=== PATIENT | male | born 1945 | race Caucasian/White ===

== ENCOUNTER 2016-11-25 05:35 | Inpatient (IN) | payer MEDICARE, BC ==
[2016-11-25] MEDS ORDERED: Lactated Ringers 1,000 ML IV SCH (06:00)
[2016-11-25] MEDS ORDERED: ceFAZolin 2 GM in Premix Bag 1 BAG IV ONE (06:00)
[2016-11-25] MEDS ORDERED: Gentamicin 40 MG/ML 2 ML Vial ONE (06:39)
[2016-11-25] MEDS ORDERED: Midazolam 1 MG/ML 2 ML SDV ONE (07:24)
[2016-11-25] MEDS ORDERED: Propofol 200 MG/20 ML SDV ONE ×3 (07:24→09:45)
[2016-11-25] MEDS ORDERED: fentaNYL 100 MCG/2 ML SDV ONE (07:24)
[2016-11-25] MEDS ORDERED: Ropivacaine 49.25 ML, Ketorolac 30 MG, EPINEPHrine 0.5 MG, cloNIDine 80 MCG, Sodium Chl... INJECT SCH ×5 (07:45)
[2016-11-25] MEDS ORDERED: Tranexamic Acid 1,000 MG in Sodium Chloride 0.9% 50 ML IV SCH (08:00)
[2016-11-25] MEDS ORDERED: Lactated Ringers 1,000 ML ONE (09:49)
[2016-11-25] MEDS ORDERED: Docusate Sodium 100 MG Cap PO PRN (10:08)
[2016-11-25] MEDS ORDERED: Bisacodyl 5 MG Tab PO PRN (10:08)
[2016-11-25] MEDS ORDERED: Ketorolac 30 MG/ML SDV IVPUSH PRN (10:08)
[2016-11-25] MEDS ORDERED: Zolpidem 5 MG Tab PO PRN (10:08)
[2016-11-25] MEDS ORDERED: traMADol 50 MG Tab PO PRN ×2 (10:08→11:08)
[2016-11-25] MEDS ORDERED: Ondansetron 4 MG/2 ML SDV IVPUSH PRN (10:08)
[2016-11-25] MEDS ORDERED: Sennosides 8.6 MG Tab PO PRN (10:08)
[2016-11-25] MEDS ORDERED: diphenhydrAMINE 50 MG/ML SDV IVPUSH PRN (10:08)
[2016-11-25] MEDS ORDERED: Magnesium Hydroxide 400 MG/5 ML Susp 30 ML Cup PO PRN (10:08)
[2016-11-25] MEDS ORDERED: Aluminum Hydroxide/Magnesium Hydroxide/Simethicone Susp 30 ML Cup PO PRN (10:08)
[2016-11-25] MEDS ORDERED: Naloxone 0.4 MG/ML SDV IVPUSH PRN (10:08)
[2016-11-25] MEDS ORDERED: ceFAZolin 2 GM in Premix Bag 1 BAG IV SCH ×2 (11:00→12:00)
--- NOTE | 2016-11-25 11:51 | OR ---
DATE OF PROCEDURE: 11/25/2016 PREOPERATIVE DIAGNOSIS: Left knee primary osteoarthritis. POSTOPERATIVE DIAGNOSIS: Left knee primary osteoarthritis. PROCEDURE: Left knee total knee arthroplasty. RUG CLEANER HELPER: FRAN Ruvalcaba. ANESTHESIA: Conscious sedation plus spinal anesthesia. FLUID: Lactated Ringer solution. ESTIMATED BLOOD LOSS: 150 mL. COMPLICATIONS: None. SPECIMEN: None. DISCHARGE DISPOSITION: Stable to PACU. INSTRUMENTATION: Aquamantys was used during the procedure. Marah Persona size 10 left femur, size G tibia, a 35 mm patella, and 12 mm polyethylene posterior stabilized fixed bearing, tibial insert. INDICATIONS FOR THE PROCEDURE: The patient is well known to me. [place] He had failed nonoperative treatment including physical therapy, injections, and nonsteroidal anti-inflammatories. Preoperative imaging confirmed the above-mentioned diagnosis. Risks and benefits of the procedure were explained to the patient. Informed consent was obtained. DETAILS OF PROCEDURE: The patient was seen preoperatively by myself and the anesthesia staff in the preop holding area where the operative site was marked. He was brought to the operative suite by the anesthesia staff where a spinal was administered, he was also given some conscious sedation. The sterile Koenig catheter was placed. A well-padded tourniquet was placed onto his left thigh. The left lower extremity was then prepped and draped in a sterile manner. Time-out was called identifying the correct patient, the correct procedure, the correct site, and antibiotics had begun with an appropriate period of time. The left lower extremity was then exsanguinated. Tourniquet was raised to 300 mmHg for 50 minutes and taken down after cementing. A midline incision was made from the level of the tibial tubercle, 3 fingerbreadths proximal to the patella. Medial parapatellar arthrotomy was then made. Bleeding was controlled with Bovie electrocautery as well as the Aquamantys unit during the procedure. Infrapatellar fat pad was removed. A full synovectomy was performed. The patella was everted using a towel clip and then flexed. Two saw cuts were made to remove the posterior portion of the patella. It was sized at 35 mm. It was then drilled and then a patellar trial was then placed. I then flexed the knee up again and reamed the distal femur, retirement between the notch and the anterior cortex. I then inserted my intramedullary guide at 5 degrees valgus, 10 mm distal cut. I pinned this guide in place. I then made my distal femoral cut. I then removed as much of the medial and lateral meniscus as well as the anterior and posterior cruciate ligament as I could. I then inserted my posterior condylar guide in high flexion and then measured a 10 and drilled for my chamfer block. I then removed the guide and placed my chamfer block. I then protected the medial and lateral collateral ligaments with sharp Homans and then made my anterior posterior chamfer cuts. I then removed any extra bone using an osteotome as well as the soft tissue attachments with Bovie electrocautery. We then anteriorized the tibia with a blunt Hohmann and then protected the medial collateral ligament with a zero retractor and lateral collateral ligament with a sharp Hohmann. I then used an extramedullary guide on the proximal tibia to major in alignment with the tibial tubercle and the 2nd metatarsal and then drilled holes for my guide and then placed the guide after I was confident this was enough. We were in good alignment. We then used a saw to remove the proximal tibia. I did end up making a 2nd cut after trialing and removed another 4 mm. After this had been performed, I removed any soft tissue attachments with the Aquamantys unit. I then used an interlaminar municipal engineer. There were no major posterior osteophytes. I did not need to remove any of those, but I did remove a lot of posterior redundant capsule. I also used the Aquamantys unit on the posterior capsule, especially laterally to prevent any extra bleeders later. I then placed my base plate on the tibia and then reamed and tamped the proximal tibia. I then inserted my femoral trial and drilled the lugs as well as made the box cut. We then inserted a 10 mm polyethylene insert. This provided excellent stability in flexion, mid flexion, and full extension with excellent range of motion. We then removed all of our components, copiously irrigated with saline, and then dried our bone with a dry lap. I then, using a pressurized technique, placed my cement in the tibia and then placed the tibial component as well as remainder of the components and then held the knee out in full extension with a tibial polyethylene trial in place. I then allowed this to harden. The tourniquet was let down. He did have a fair amount of small bleeders, and we took our time to use the Bovie electrocautery unit and the Aquamantys unit to control any bleeders. Because of this, we did end up placing a drain, which will be taken out this afternoon. I then copiously irrigated with saline, removed any extra cement and then trialed with a 12 tibial insert, which provided excellent stability. I then copiously irrigated with saline again, inserted my 12 polyethylene tibial insert and locked it in place and then made sure there were no soft tissue entrapment between the head and the base plate. We then found this to be very stable, irrigated again with saline and then closed our parapatellar arthrotomy with two #5 Ethibond sutures as well as 0 Vicryl interrupted [id number] in a watertight manner followed by 2-0 subcutaneous sutures, followed by 2-0 Monocryl zip line and sterile dressing. The patient was then transferred to the PACU in stable condition. Robin Flores DO /[id number]
[2016-11-25] MEDS: Ketorolac 30 MG/ML SDV IVPUSH PRN (12:38)
[2016-11-25] MEDS: Acetaminophen/oxyCODONE 325-5 MG Tab PO PRN ×2 (12:39→16:49)
--- NOTE | 2016-11-25 12:41 | CR ---
Left knee The patient is status post knee arthroplasty. The prosthetic components are well aligned and seated. There is a drainage catheter within the joint. Impression: Left knee arthroplasty without evidence for complication.
[2016-11-25] MEDS: ceFAZolin 2 GM in Sodium Chloride 0.9% 50 ML IV SCH ×2 (14:46→21:17)
[2016-11-25] MEDS: Morphine 2 MG/ML Syringe IVPUSH PRN ×2 (15:02→19:46)
--- NOTE | 2016-11-25 15:16 | PCM.PN ---
- General Info Date of Service: 11/25/16 Functional Status: Reports: pain controlled, urinating - Review of Systems Pulmonary: Denies: shortness of breath Cardiovascular: Denies: Chest Pain Musculoskeletal: Reports: joint pain (left knee) Systems Review Comment:: No acute events since surgery. Pain in the knee is starting to build up but is still tolerable at this time. Pain is achy and moderate in nature. No numbness or tingling below the knee. Able to wiggle his toes. No complaints of chest pain or shortness of breath. - Patient Data Vitals - most recent: Last Vital Signs Temp 36.1 C 11/25/16 14:00 Pulse 64 11/25/16 14:00 Resp 16 11/25/16 14:00 BP 103/65 11/25/16 14:00 Pulse Ox 90 L 11/25/16 14:00 Weight - most recent: 103.873 kg I&O - last 24 hours: Intake & Output 11/25/16 11/25/16 11/25/16 06:59 14:59 22:59 Intake Total 100 Output Total 550 Balance -450 Lab Results last 24 hrs: Laboratory Results - last 24 hr 11/25/16 Range/Units 06:00 Blood Type A POSITIVE Gel Antibody Screen Negative Med Orders - Current: Current Medications Al Hydroxide/Mg Hydroxide (Mag-Al Plus) 30 ml PO Q4H PRN PRN Reason: Constipation Amlodipine Besylate (Norvasc) 2.5 mg PO DAILY [facility] Aspirin (Ecotrin) 325 mg PO BID [facility] Aspirin (Halfprin) 81 mg PO DAILY [facility] Bisacodyl (Dulcolax) 10 mg PO DAILY PRN PRN Reason: Constipation Diazepam (Valium) 5 mg IVPUSH Q6H PRN PRN Reason: Spasms Last Admin: 11/25/16 13:45 Dose: 5 mg Diphenhydramine HCl (Benadryl) 25 mg IVPUSH Q4H PRN PRN Reason: Itching Docusate Sodium (Colace) 100 mg PO BID PRN PRN Reason: Constipation Lactated Ringer's (Ringers, Lactated) 1,000 mls @ 100 mls/hr IV ASDIRECTED [facility] Last Admin: 11/25/16 06:21 Dose: 100 mls/hr Cefazolin Sodium 2 gm/ Sodium (Chloride) 50 mls @ 100 mls/hr IV Q8H [facility] Stop: 11/26/16 06:29 Last Admin: 11/25/16 14:46 Dose: 100 mls/hr Ketorolac Tromethamine (Toradol) 30 mg IVPUSH Q8H PRN PRN Reason: Pain Stop: 11/30/16 10:12 Last Admin: 11/25/16 12:38 Dose: 30 mg Magnesium Hydroxide (Milk Of Magnesia) 30 ml PO BID PRN PRN Reason: Constipation Metoprolol Tartrate (Lopressor) 25 mg PO Q12HR [facility] Morphine Sulfate (Morphine) 2 mg IVPUSH Q2H PRN PRN Reason: Pain Last Admin: 11/25/16 15:02 Dose: 2 mg Ondansetron HCl (Zofran) 8 mg IVPUSH Q4H PRN PRN Reason: Nausea/Vomiting Oxycodone/Acetaminophen (Percocet 325-5 Mg) 2 tab PO Q4H PRN PRN Reason: Pain Last Admin: 11/25/16 12:39 Dose: 2 tab Rosuvastatin Calcium (Crestor) 5 mg PO MOWEFR [facility] Senna (Senna) 8.6 mg PO BID PRN PRN Reason: Constipation Sodium Chloride (Saline Flush) 10 ml FLUSH DAILY [facility] Tramadol HCl (Ultram) 100 mg PO Q6H PRN PRN Reason: Pain Zolpidem Tartrate (Ambien) 5 mg PO BEDTIME PRN PRN Reason: Sleep Discontinued Medications Aspirin (Ecotrin) 325 mg PO BID [facility] Ropivacaine 49.25 ml/Ketorolac Tromethamine 30 mg/Epinephrine HCl 0.5 mg/ Clonidine HCl 80 mcg/ Sodium Chloride 48.45 ml 0 ml INJECT ASDIRECTED [facility] Stop: 11/25/16 10:00 Last Admin: 11/25/16 09:09 Dose: 100 syringe Fentanyl (Sublimaze) Confirm Administered Dose 100 mcg .ROUTE .STK-MED ONE Stop: 11/25/16 07:25 Gentamicin Sulfate (Gentamicin) Confirm Administered Dose 240 mg .ROUTE .STK- MED ONE Stop: 11/25/16 06:40 Last Admin: 11/25/16 08:31 Dose: 240 mg Cefazolin Sodium/Dextrose 2 gm (/ Premix) 50 mls @ 100 mls/hr IV ONETIME ONE Stop: 11/25/16 06:29 Last Admin: 11/25/16 07:26 Dose: 100 mls/hr Lactated Ringer's (Ringers, Lactated) Confirm Administered Dose 1,000 mls @ as directed .ROUTE .STK-MED ONE Stop: 11/25/16 09:50 Cefazolin Sodium/Dextrose 2 gm (/ Premix) 50 mls @ 100 mls/hr IV Q8H [facility] Stop: 11/26/16 03:29 Ketorolac Tromethamine (Toradol) 30 mg IVPUSH Q8H PRN PRN Reason: Pain Stop: 11/30/16 10:12 Midazolam HCl (Versed 1 Mg/Ml) Confirm Administered Dose 2 mg .ROUTE .STK-MED ONE Stop: 11/25/16 07:25 Naloxone HCl (Narcan) 0.1 mg IVPUSH ASDIRECTED PRN PRN Reason: Oversedation Stop: 11/25/16 10:09 Propofol (Diprivan 20 Ml) Confirm Administered Dose 200 mg .ROUTE .STK-MED ONE Stop: 11/25/16 07:25 Propofol (Diprivan 20 Ml) Confirm Administered Dose 200 mg .ROUTE .STK-MED ONE Stop: 11/25/16 08:04 Propofol (Diprivan 20 Ml) Confirm Administered Dose 200 mg .ROUTE .STK-MED ONE Stop: 11/25/16 09:46 Tramadol HCl (Ultram) 100 mg PO Q6H PRN PRN Reason: Pain - Exam Quality Assessment: No: supplemental oxygen General: alert, oriented, cooperative, no acute distress Neck: supple Lungs: Clear to auscultation, Normal respiratory effort Cardiovascular: Regular Rate, Regular Rhythm, No Murmurs Abdomen: soft, no distension Extremities: no edema, other (left knee wrapped with HARI. Dressings underneath dry and intact. Able to wiggle all of his toes and move feet ) Skin: warm, dry Neurological: other (distal CMS intact left foot) Psy/Mental Status: alert, normal affect - Problem List & Annotations (1) Primary osteoarthritis of left knee SNOMED Code(s): 876194265, 005077944 Code(s): M17.12 - UNILATERAL PRIMARY OSTEOARTHRITIS, LEFT KNEE Status: Chronic Current Visit: No (2) CAD (coronary artery disease) SNOMED Code(s): 92498980 Code(s): I25.10 - ATHSCL HEART DISEASE OF [place] CORONARY ARTERY W/O ANG PCTRS Status: Chronic Current Visit: Yes Qualifiers: Coronary Disease-Associated Artery/Lesion type: [place] artery [place] vs. transplanted heart: [place] heart Associated angina: without angina Qualified Code(s): I25.10 - Atherosclerotic heart disease of [place] coronary artery without angina pectoris - Problem List Review Problem List Initiated/Reviewed/Updated: Yes - My Orders Last 24 Hours: My Active Orders 11/25/16 21:00 Metoprolol Tartrate [Lopressor] 25 mg PO Q12HR 11/26/16 09:00 Aspirin [Halfprin] 81 mg PO DAILY amLODIPine [Norvasc] 2.5 mg PO DAILY 11/26/16 21:00 Rosuvastatin [Crestor] 5 mg PO MOWEFR - Plan Plan:: Assessment and plan - Primary osteoarthritis of the left knee - now status post total knee arthroplasty and moderate pain but otherwise doing well. Moderate drainage following surgery and this is now clamped. Hemodynamically stable. -Postop cares per orthopedic service Coronary artery disease, status post coronary artery bypass - no active symptoms and has been doing well clinically prior to hospital stay. Hemodynamically stable. -Continue medical management Steven Orozco M.D.
[2016-11-25] MEDS ORDERED: Acetaminophen 325 MG Tab PO PRN (15:46)
[2016-11-25] MEDS ORDERED: Diazepam 5 MG Tab PO PRN (15:47)
[2016-11-25] MEDS ORDERED: Lactated Ringers 500 ML IV SCH (18:45)
[2016-11-25] MEDS: Metoprolol Tartrate 25 MG Tab PO SCH (20:45)
[2016-11-25] MEDS ORDERED: Aspirin 325 MG Tab.EC PO SCH (21:00)
[2016-11-26] MEDS ORDERED: Sodium Chloride 0.9% 500 ML IV ONE (00:58)
[2016-11-26] MEDS ORDERED: Sodium Chloride 0.9% 1,000 ML IV SCH (02:00)
[2016-11-26] MEDS: Morphine 2 MG/ML Syringe IVPUSH PRN (04:30)
[2016-11-26] MEDS: ceFAZolin 2 GM in Sodium Chloride 0.9% 50 ML IV SCH (05:35)
[2016-11-26] MEDS: Acetaminophen/oxyCODONE 325-5 MG Tab PO PRN ×2 (05:45→11:29)
--- NOTE | 2016-11-26 06:30 | PCM.SN ---
- Free Text/Narrative Note: time 00:58 call from Nursing Staff concerns of decrease urine output, urine output 28ml/hr patient feeling urge to go to the bathroom. fell getting up to go to the bathroom. no injuries badder scan less then 50ml in bladder a; urine output decreased, fall without injury p; give IV Normal Saline 500ml bolus, then IV fluids at 125 ml/hr. continue close monitoring.
[2016-11-26] MEDS: amLODIPine 2.5 MG Tab PO SCH (08:05)
[2016-11-26] MEDS: Metoprolol Tartrate 25 MG Tab PO SCH ×2 (08:05→21:17)
[2016-11-26] MEDS: Sodium Chloride 0.9% 10 ML Syringe FLUSH SCH (08:07)
[2016-11-26] MEDS: Aspirin 325 MG Tab.EC PO SCH ×2 (09:02→21:17)
[2016-11-26] MEDS: Aspirin 81 MG Tab.EC PO SCH (09:02)
--- NOTE | 2016-11-26 09:31 | PCM.PN ---
- General Info Date of Service: 11/26/16 Admission Dx/Problem (Free Text): German is a 71-year-old pleasant male who has status post left knee total replacement on 11/25/2016. I received a call last evening the patient had fallen onto his knee when he was transferred to the bathroom. Nurse had noted an old obvious deformities. She states that all other examination was negative. I was also noted that he had low urine output. We had given him a fluid bolus and inform them to watch CMS over the night. Patient is doing well at this time. pain is controlled with oral pain medication. He has had his drain clamped with minimal drainage on his dressing. Patient is working with physical therapy and is doing well Functional Status: Reports: pain controlled, tolerating diet, ambulating, urinating - Review of Systems General: Reports: No Symptoms - Patient Data Vitals - most recent: Last Vital Signs Temp 37 C 11/26/16 07:35 Pulse 88 11/26/16 08:05 Resp 16 11/26/16 07:35 BP 124/91 H 11/26/16 08:05 Pulse Ox 94 L 11/26/16 07:35 Weight - most recent: 229 lb I&O - last 24 hours: Intake & Output 11/25/16 11/26/16 11/26/16 22:59 06:59 14:59 Intake Total 1180 1647 400 Output Total 160 625 Balance 1020 1022 400 Lab Results last 24 hrs: Laboratory Results - last 24 hr 11/26/16 11/26/16 Range/Units 05:46 05:46 WBC 13.1 H (4.5-11.0) K/uL RBC 4.15 L (4.30-5.90) M/uL Hgb 12.6 D (12.0-15.0) g/dL Hct 37.6 L (40.0-54.0) % MCV 91 (80-98) fL MCH 30 (27-31) pg MCHC 34 (32-36) % Plt Count 295 (150-400) K/uL Neut % (Auto) 74 H (36-66) % Lymph % (Auto) 11 L (24-44) % [place] % (Auto) 14 H (2-6) % Eos % (Auto) 1 L (2-4) % Baso % (Auto) 0 (0-1) % Sodium 137 L (140-148) mmol/L Potassium 4.2 (3.6-5.2) mmol/L Chloride 104 (100-108) mmol/L Carbon Dioxide 24 (21-32) mmol/L Anion Gap 13.2 (5.0-14.0) mmol/L BUN 19 H (7-18) mg/dL Creatinine 1.3 (0.8-1.3) mg/dL Est Cr Clr Drug Dosing 53.87 mL/min Estimated GFR (MDRD) 54 L (>60) Glucose 116 H (74-106) mg/dL Calcium 8.2 L (8.5-10.1) mg/dL Total Bilirubin 0.7 (0.2-1.0) mg/dL AST 18 (15-37) U/L ALT 22 (12-78) U/L Alkaline Phosphatase 92 (46-116) U/L Total Protein 6.1 L (6.4-8.2) g/dL Albumin 3.1 L (3.4-5.0) g/dL Globulin 3.0 (2.3-3.5) g/dL Albumin/Globulin Ratio 1.0 L (1.2-2.2) Med Orders - Current: Current Medications Acetaminophen (Tylenol) 650 mg PO Q4H PRN PRN Reason: Pain/Fever Al Hydroxide/Mg Hydroxide (Mag-Al Plus) 30 ml PO Q4H PRN PRN Reason: Constipation Amlodipine Besylate (Norvasc) 2.5 mg PO DAILY [facility] Last Admin: 11/26/16 08:05 Dose: 2.5 mg Aspirin (Ecotrin) 325 mg PO BID [facility] Last Admin: 11/26/16 09:02 Dose: 325 mg Aspirin (Halfprin) 81 mg PO DAILY [facility] Last Admin: 11/26/16 09:02 Dose: 81 mg Bisacodyl (Dulcolax) 10 mg PO DAILY PRN PRN Reason: Constipation Diazepam (Valium) 5 mg IVPUSH Q6H PRN PRN Reason: Spasms Last Admin: 11/25/16 13:45 Dose: 5 mg Diazepam (Valium.) 5 mg PO QID PRN PRN Reason: Spasms Last Admin: 11/25/16 21:17 Dose: 5 mg Diphenhydramine HCl (Benadryl) 25 mg IVPUSH Q4H PRN PRN Reason: Itching Docusate Sodium (Colace) 100 mg PO BID PRN PRN Reason: Constipation Lactated Ringer's (Ringers, Lactated) 1,000 mls @ 100 mls/hr IV ASDIRECTED [facility] Last Admin: 11/25/16 06:21 Dose: 100 mls/hr Ketorolac Tromethamine (Toradol) 30 mg IVPUSH Q8H PRN PRN Reason: Pain Stop: 11/30/16 10:12 Last Admin: 11/25/16 12:38 Dose: 30 mg Magnesium Hydroxide (Milk Of Magnesia) 30 ml PO BID PRN PRN Reason: Constipation Metoprolol Tartrate (Lopressor) 25 mg PO Q12H [facility] Last Admin: 11/26/16 08:05 Dose: 25 mg Morphine Sulfate (Morphine) 2 mg IVPUSH Q2H PRN PRN Reason: Pain Last Admin: 11/26/16 04:30 Dose: 2 mg Ondansetron HCl (Zofran) 8 mg IVPUSH Q4H PRN PRN Reason: Nausea/Vomiting Oxycodone/Acetaminophen (Percocet 325-5 Mg) 2 tab PO Q4H PRN PRN Reason: Pain Last Admin: 11/26/16 05:45 Dose: 2 tab Rosuvastatin Calcium (Crestor) 5 mg PO [id number] [facility] Senna (Senna) 8.6 mg PO BID PRN PRN Reason: Constipation Sodium Chloride (Saline Flush) 10 ml FLUSH DAILY [facility] Last Admin: 11/26/16 08:07 Dose: Not Given Tramadol HCl (Ultram) 100 mg PO Q6H PRN PRN Reason: Pain Last Admin: 11/26/16 08:03 Dose: 100 mg Zolpidem Tartrate (Ambien) 5 mg PO BEDTIME PRN PRN Reason: Sleep Discontinued Medications Aspirin (Ecotrin) 325 mg PO BID [facility] Ropivacaine 49.25 ml/Ketorolac Tromethamine 30 mg/Epinephrine HCl 0.5 mg/ Clonidine HCl 80 mcg/ Sodium Chloride 48.45 ml 0 ml INJECT ASDIRECTED [facility] Stop: 11/25/16 10:00 Last Admin: 11/25/16 09:09 Dose: 100 syringe Fentanyl (Sublimaze) Confirm Administered Dose 100 mcg .ROUTE .STK-MED ONE Stop: 11/25/16 07:25 Gentamicin Sulfate (Gentamicin) Confirm Administered Dose 240 mg .ROUTE .STK- MED ONE Stop: 11/25/16 06:40 Last Admin: 11/25/16 08:31 Dose: 240 mg Cefazolin Sodium/Dextrose 2 gm (/ Premix) 50 mls @ 100 mls/hr IV ONETIME ONE Stop: 11/25/16 06:29 Last Admin: 11/25/16 07:26 Dose: 100 mls/hr Lactated Ringer's (Ringers, Lactated) Confirm Administered Dose 1,000 mls @ as directed .ROUTE .STK-MED ONE Stop: 11/25/16 09:50 Cefazolin Sodium/Dextrose 2 gm (/ Premix) 50 mls @ 100 mls/hr IV Q8H [facility] Stop: 11/26/16 03:29 Last Admin: 11/25/16 17:45 Dose: Not Given Cefazolin Sodium 2 gm/ Sodium (Chloride) 50 mls @ 100 mls/hr IV Q8H [facility] Stop: 11/26/16 06:29 Last Admin: 11/26/16 05:35 Dose: 100 mls/hr Lactated Ringer's (Ringers, Lactated) 500 mls @ 100 mls/hr IV ASDIRECTED [facility] Stop: 11/25/16 23:45 Last Admin: 11/25/16 20:46 Dose: 100 mls/hr Sodium Chloride (Normal Saline) 500 mls @ 999 mls/hr IV .BOLUS ONE Stop: 11/26/16 01:28 Last Admin: 11/26/16 01:15 Dose: 999 mls/hr Sodium Chloride (Normal Saline) 1,000 mls @ 125 mls/hr IV ASDIRECTED [facility] Last Admin: 11/26/16 07:20 Dose: 125 mls/hr Ketorolac Tromethamine (Toradol) 30 mg IVPUSH Q8H PRN PRN Reason: Pain Stop: 11/30/16 10:12 Midazolam HCl (Versed 1 Mg/Ml) Confirm Administered Dose 2 mg .ROUTE .STK-MED ONE Stop: 11/25/16 07:25 Naloxone HCl (Narcan) 0.1 mg IVPUSH ASDIRECTED PRN PRN Reason: Oversedation Stop: 11/25/16 10:09 Propofol (Diprivan 20 Ml) Confirm Administered Dose 200 mg .ROUTE .STK-MED ONE Stop: 11/25/16 07:25 Propofol (Diprivan 20 Ml) Confirm Administered Dose 200 mg .ROUTE .STK-MED ONE Stop: 11/25/16 08:04 Propofol (Diprivan 20 Ml) Confirm Administered Dose 200 mg .ROUTE .STK-MED ONE Stop: 11/25/16 09:46 Tramadol HCl (Ultram) 100 mg PO Q6H PRN PRN Reason: Pain - Exam General: alert, oriented Extremities: no edema, normal pulses, no tenderness/swelling Skin: warm, dry, intact Wound/Incisions: healing well, dressing dry and intact (CANDELARIA drain was removed. ) , drainage (minimal) Neurological: no new focal deficit, normal gait Psy/Mental Status: alert, normal affect, normal mood - Problem List & Annotations (1) Status post total left knee replacement SNOMED Code(s): 3174344946339 Code(s): Z96.652 - PRESENCE OF LEFT ARTIFICIAL KNEE JOINT Status: Acute Current Visit: Yes - Problem List Review Problem List Initiated/Reviewed/Updated: Yes - My Orders Last 24 Hours: My Active Orders 11/25/16 10:08 Acetaminophen/oxyCODONE [Percocet 325-5 MG] 2 tab PO Q4H PRN Alum Hydrox/Mag Hydrox/Simeth [Mag-Al Plus] 30 ml PO Q4H PRN Bisacodyl [Dulcolax] 10 mg PO DAILY PRN Diazepam [Valium] 5 mg IVPUSH Q6H PRN Docusate Sodium [Colace] 100 mg PO BID PRN Magnesium Hydroxide [Milk of Magnesia] 30 ml PO BID PRN Morphine 2 mg IVPUSH Q2H PRN Ondansetron [Zofran] 8 mg IVPUSH Q4H PRN Sennosides [Senna] 8.6 mg PO BID PRN Zolpidem [Ambien] 5 mg PO BEDTIME PRN diphenhydrAMINE [Benadryl] 25 mg IVPUSH Q4H PRN Resuscitation Status Routine 11/25/16 10:12 Patient Status [ADT] Routine Ambulate [RC] QID Intake and Output [RC] QSHIFT May Shower [RC] ASDIRECTED Neurovascular Check [RC] Q4HR Notify Provider Consults [RC] ASDIRECTED Pulse Oximetry [RC] CONTINUOUS RT Incentive Spirometry [RC] Q2HWA Up to Chair [RC] QID Urinary Catheter Removal [RC] Per Unit Routine Vital Signs [RC] PER UNIT ROUTINE Wound Care [RC] Q12H Consult to Physician [CONS] Routine OT Evaluation and Treatment [CONS] Routine PT Evaluation and Treatment [CONS] Routine Sequential Compression Device [OM.PC] Per Unit Routine 11/25/16 10:15 Convert IV to Saline Lock [OM.PC] PER UNIT ROUTINE Ice Therapy [OM.PC] PER UNIT ROUTINE 11/25/16 11:08 Ketorolac [Toradol] 30 mg IVPUSH Q8H PRN traMADol [Ultram] 100 mg PO Q6H PRN 11/25/16 Lunch Advance Diet Instructions [DIET] 11/26/16 00:49 Consult to Physician [CONS] Routine 11/26/16 00:50 Notify Provider Consults [RC] ASDIRECTED 11/26/16 01:00 Communication Order [RC] ROUTINE 11/26/16 08:58 Knee 1V or 2V Rt [CR] Routine 11/26/16 09:00 Aspirin [Ecotrin] 325 mg PO BID Sodium Chloride 0.9% [Saline Flush] 10 ml FLUSH DAILY Drain Removal [OM.PC] Routine 11/27/16 05:15 CBC WITH AUTO DIFF [HEME] DAILY COMPREHENSIVE METABOLIC PN,CMP [CHEM] DAILY 11/28/16 05:15 CBC WITH AUTO DIFF [HEME] DAILY COMPREHENSIVE METABOLIC PN,CMP [CHEM] DAILY 11/29/16 05:15 CBC WITH AUTO DIFF [HEME] DAILY COMPREHENSIVE METABOLIC PN,CMP [CHEM] DAILY - Plan Plan:: Assessment and plan - Primary osteoarthritis of the left knee - patient is status post left total knee arthroplasty. He is doing well. He is tolerating oral pain medication without difficulties. He'll continue with PT/OT today. We will do an x-ray of his left knee to make sure he did not damage anything when he fell. I did DC his CANDELARIA drain today I also DC'd his Koenig and saline lock him. I want him to at least receive PT 3 times a day. I want him to ambulate once a day and plan to be discharged tomorrow. Patient and are in this plan. I did give him his discharge medications included Percocet and aspirin for his to fill today. I also ordered him to have physical therapy on day after discharge. Order was placed.
--- NOTE | 2016-11-26 09:32 | CR ---
Left knee Comparison: Previous day. There has been interval removal of the drainage catheter. The femoral and tibial prosthetic componen ts are well aligned and seated. There is no significant joint effusion. Impression: 1. Status post knee arthroplasty without evidence for consultation.
--- NOTE | 2016-11-26 14:55 | PCM.PN ---
- General Info Date of Service: 11/26/16 Functional Status: Reports: pain controlled, ambulating - Review of Systems Pulmonary: Denies: shortness of breath Cardiovascular: Denies: Chest Pain Systems Review Comment:: Patient had a fall last night where he stumbled and fell forward. No obvious injuries. Repeat x-rays this morning did not show any fracture or hardware damage in the left knee. Low urine output last night that responded to fluid boluses. Heart rate and blood pressure have been acceptable. - Patient Data Vitals - most recent: Last Vital Signs Temp 36.4 C 11/26/16 11:06 Pulse 80 11/26/16 11:06 Resp 20 11/26/16 11:06 BP 141/81 H 11/26/16 11:06 Pulse Ox 94 L 11/26/16 11:06 Weight - most recent: 103.873 kg I&O - last 24 hours: Intake & Output 11/25/16 11/26/16 11/26/16 22:59 06:59 14:59 Intake Total 1180 1647 400 Output Total 160 625 50 Balance 1020 1022 350 Lab Results last 24 hrs: Laboratory Results - last 24 hr 11/26/16 11/26/16 Range/Units 05:46 05:46 WBC 13.1 H (4.5-11.0) K/uL RBC 4.15 L (4.30-5.90) M/uL Hgb 12.6 D (12.0-15.0) g/dL Hct 37.6 L (40.0-54.0) % MCV 91 (80-98) fL MCH 30 (27-31) pg MCHC 34 (32-36) % Plt Count 295 (150-400) K/uL Neut % (Auto) 74 H (36-66) % Lymph % (Auto) 11 L (24-44) % [place] % (Auto) 14 H (2-6) % Eos % (Auto) 1 L (2-4) % Baso % (Auto) 0 (0-1) % Sodium 137 L (140-148) mmol/L Potassium 4.2 (3.6-5.2) mmol/L Chloride 104 (100-108) mmol/L Carbon Dioxide 24 (21-32) mmol/L Anion Gap 13.2 (5.0-14.0) mmol/L BUN 19 H (7-18) mg/dL Creatinine 1.3 (0.8-1.3) mg/dL Est Cr Clr Drug Dosing 53.87 mL/min Estimated GFR (MDRD) 54 L (>60) Glucose 116 H (74-106) mg/dL Calcium 8.2 L (8.5-10.1) mg/dL Total Bilirubin 0.7 (0.2-1.0) mg/dL AST 18 (15-37) U/L ALT 22 (12-78) U/L Alkaline Phosphatase 92 (46-116) U/L Total Protein 6.1 L (6.4-8.2) g/dL Albumin 3.1 L (3.4-5.0) g/dL Globulin 3.0 (2.3-3.5) g/dL Albumin/Globulin Ratio 1.0 L (1.2-2.2) Med Orders - Current: Current Medications Acetaminophen (Tylenol) 650 mg PO Q4H PRN PRN Reason: Pain/Fever Al Hydroxide/Mg Hydroxide (Mag-Al Plus) 30 ml PO Q4H PRN PRN Reason: Constipation Amlodipine Besylate (Norvasc) 2.5 mg PO DAILY [facility] Last Admin: 11/26/16 08:05 Dose: 2.5 mg Aspirin (Ecotrin) 325 mg PO BID [facility] Last Admin: 11/26/16 09:02 Dose: 325 mg Aspirin (Halfprin) 81 mg PO DAILY [facility] Last Admin: 11/26/16 09:02 Dose: 81 mg Bisacodyl (Dulcolax) 10 mg PO DAILY PRN PRN Reason: Constipation Diazepam (Valium) 5 mg IVPUSH Q6H PRN PRN Reason: Spasms Last Admin: 11/25/16 13:45 Dose: 5 mg Diazepam (Valium.) 5 mg PO QID PRN PRN Reason: Spasms Last Admin: 11/25/16 21:17 Dose: 5 mg Diphenhydramine HCl (Benadryl) 25 mg IVPUSH Q4H PRN PRN Reason: Itching Docusate Sodium (Colace) 100 mg PO BID PRN PRN Reason: Constipation Lactated Ringer's (Ringers, Lactated) 1,000 mls @ 100 mls/hr IV ASDIRECTED [facility] Last Admin: 11/25/16 06:21 Dose: 100 mls/hr Ketorolac Tromethamine (Toradol) 30 mg IVPUSH Q8H PRN PRN Reason: Pain Stop: 11/30/16 10:12 Last Admin: 11/25/16 12:38 Dose: 30 mg Magnesium Hydroxide (Milk Of Magnesia) 30 ml PO BID PRN PRN Reason: Constipation Metoprolol Tartrate (Lopressor) 25 mg PO Q12H [facility] Last Admin: 11/26/16 08:05 Dose: 25 mg Morphine Sulfate (Morphine) 2 mg IVPUSH Q2H PRN PRN Reason: Pain Last Admin: 11/26/16 04:30 Dose: 2 mg Ondansetron HCl (Zofran) 8 mg IVPUSH Q4H PRN PRN Reason: Nausea/Vomiting Oxycodone/Acetaminophen (Percocet 325-5 Mg) 2 tab PO Q4H PRN PRN Reason: Pain Last Admin: 11/26/16 11:29 Dose: 2 tab Rosuvastatin Calcium (Crestor) 5 mg PO [id number]@2100 [facility] Senna (Senna) 8.6 mg PO BID PRN PRN Reason: Constipation Sodium Chloride (Saline Flush) 10 ml FLUSH DAILY [facility] Last Admin: 11/26/16 08:07 Dose: Not Given Tramadol HCl (Ultram) 100 mg PO Q6H PRN PRN Reason: Pain Last Admin: 11/26/16 08:03 Dose: 100 mg Zolpidem Tartrate (Ambien) 5 mg PO BEDTIME PRN PRN Reason: Sleep Discontinued Medications Aspirin (Ecotrin) 325 mg PO BID [facility] Ropivacaine 49.25 ml/Ketorolac Tromethamine 30 mg/Epinephrine HCl 0.5 mg/ Clonidine HCl 80 mcg/ Sodium Chloride 48.45 ml 0 ml INJECT ASDIRECTED [facility] Stop: 11/25/16 10:00 Last Admin: 11/25/16 09:09 Dose: 100 syringe Fentanyl (Sublimaze) Confirm Administered Dose 100 mcg .ROUTE .STK-MED ONE Stop: 11/25/16 07:25 Gentamicin Sulfate (Gentamicin) Confirm Administered Dose 240 mg .ROUTE .STK- MED ONE Stop: 11/25/16 06:40 Last Admin: 11/25/16 08:31 Dose: 240 mg Cefazolin Sodium/Dextrose 2 gm (/ Premix) 50 mls @ 100 mls/hr IV ONETIME ONE Stop: 11/25/16 06:29 Last Admin: 11/25/16 07:26 Dose: 100 mls/hr Lactated Ringer's (Ringers, Lactated) Confirm Administered Dose 1,000 mls @ as directed .ROUTE .STK-MED ONE Stop: 11/25/16 09:50 Cefazolin Sodium/Dextrose 2 gm (/ Premix) 50 mls @ 100 mls/hr IV Q8H [facility] Stop: 11/26/16 03:29 Last Admin: 11/25/16 17:45 Dose: Not Given Cefazolin Sodium 2 gm/ Sodium (Chloride) 50 mls @ 100 mls/hr IV Q8H [facility] Stop: 11/26/16 06:29 Last Admin: 11/26/16 05:35 Dose: 100 mls/hr Lactated Ringer's (Ringers, Lactated) 500 mls @ 100 mls/hr IV ASDIRECTED [facility] Stop: 11/25/16 23:45 Last Admin: 11/25/16 20:46 Dose: 100 mls/hr Sodium Chloride (Normal Saline) 500 mls @ 999 mls/hr IV .BOLUS ONE Stop: 11/26/16 01:28 Last Admin: 11/26/16 01:15 Dose: 999 mls/hr Sodium Chloride (Normal Saline) 1,000 mls @ 125 mls/hr IV ASDIRECTED [facility] Last Admin: 11/26/16 07:20 Dose: 125 mls/hr Ketorolac Tromethamine (Toradol) 30 mg IVPUSH Q8H PRN PRN Reason: Pain Stop: 11/30/16 10:12 Midazolam HCl (Versed 1 Mg/Ml) Confirm Administered Dose 2 mg .ROUTE .STK-MED ONE Stop: 11/25/16 07:25 Naloxone HCl (Narcan) 0.1 mg IVPUSH ASDIRECTED PRN PRN Reason: Oversedation Stop: 11/25/16 10:09 Propofol (Diprivan 20 Ml) Confirm Administered Dose 200 mg .ROUTE .STK-MED ONE Stop: 11/25/16 07:25 Propofol (Diprivan 20 Ml) Confirm Administered Dose 200 mg .ROUTE .STK-MED ONE Stop: 11/25/16 08:04 Propofol (Diprivan 20 Ml) Confirm Administered Dose 200 mg .ROUTE .STK-MED ONE Stop: 11/25/16 09:46 Tramadol HCl (Ultram) 100 mg PO Q6H PRN PRN Reason: Pain - Exam Quality Assessment: No: supplemental oxygen General: alert, oriented, cooperative, no acute distress Neck: supple Lungs: Normal respiratory effort Cardiovascular: Regular Rate, Regular Rhythm Abdomen: soft, no distension Extremities: no edema, other (Left knee with dry intact [place] wrap covering surgical area) Skin: warm, dry Psy/Mental Status: alert, normal affect - Problem List & Annotations (1) Primary osteoarthritis of left knee SNOMED Code(s): 002727762, 987728544 Code(s): M17.12 - UNILATERAL PRIMARY OSTEOARTHRITIS, LEFT KNEE Status: Chronic Current Visit: No (2) CAD (coronary artery disease) SNOMED Code(s): 61593933 Code(s): I25.10 - ATHSCL HEART DISEASE OF [place] CORONARY ARTERY W/O ANG PCTRS Status: Chronic Current Visit: Yes Qualifiers: Coronary Disease-Associated Artery/Lesion type: [place] artery [place] vs. transplanted heart: [place] heart Associated angina: without angina Qualified Code(s): I25.10 - Atherosclerotic heart disease of [place] coronary artery without angina pectoris - Problem List Review Problem List Initiated/Reviewed/Updated: Yes - My Orders Last 24 Hours: My Active Orders 11/25/16 15:46 Acetaminophen [Tylenol] 650 mg PO Q4H PRN 11/25/16 15:47 Diazepam [Valium] 5 mg PO QID PRN 11/25/16 21:00 Metoprolol Tartrate [Lopressor] 25 mg PO Q12H 11/26/16 09:00 Aspirin [Halfprin] 81 mg PO DAILY amLODIPine [Norvasc] 2.5 mg PO DAILY 11/26/16 21:00 Rosuvastatin [Crestor] 5 mg PO [id number]@2100 - Plan Plan:: Assessment and plan - Primary osteoarthritis of the left knee - now status post total knee arthroplasty and moderate pain but otherwise doing well. Last night but no obvious injury or damage based on exam and x-ray. -Postop cares per orthopedic service Coronary artery disease, status post coronary artery bypass - no active symptoms and has been doing well clinically prior to hospital stay. Hemodynamically stable. -Continue medical management Steven Orozco M.D.
[2016-11-26] MEDS: Ketorolac 30 MG/ML SDV IVPUSH PRN (15:31)
[2016-11-26] MEDS ORDERED: Rosuvastatin 5 MG Tab PO SCH (21:00)
[2016-11-27] MEDS: Acetaminophen/oxyCODONE 325-5 MG Tab PO PRN ×2 (01:49→08:07)
[2016-11-27 07:21] VITALS: BP 138/84
[2016-11-27] MEDS: Aspirin 325 MG Tab.EC PO SCH (08:05)
[2016-11-27] MEDS: amLODIPine 2.5 MG Tab PO SCH (08:06)
[2016-11-27] MEDS: Metoprolol Tartrate 25 MG Tab PO SCH (08:06)
[2016-11-27] MEDS: Aspirin 81 MG Tab.EC PO SCH (08:07)
[2016-11-27] MEDS: Sodium Chloride 0.9% 10 ML Syringe FLUSH SCH (08:07)
--- NOTE | 2016-11-27 08:46 | PCM.PN ---
- General Info Date of Service: 11/27/16 Functional Status: Reports: pain controlled, tolerating diet, ambulating, urinating - Patient Data Vitals - most recent: Last Vital Signs Temp 37 C 11/27/16 07:19 Pulse 100 11/27/16 08:06 Resp 16 11/27/16 07:19 BP 138/84 11/27/16 08:06 Pulse Ox 95 11/27/16 07:19 Weight - most recent: 229 lb I&O - last 24 hours: Intake & Output 11/26/16 11/27/16 11/27/16 22:59 06:59 14:59 Intake Total 240 240 Output Total 570 340 Balance -330 -100 Lab Results last 24 hrs: Laboratory Results - last 24 hr 11/27/16 11/27/16 Range/Units 05:00 05:00 WBC 10.0 (4.5-11.0) K/uL RBC 3.59 L (4.30-5.90) M/uL Hgb 11.1 L (12.0-15.0) g/dL Hct 32.9 L (40.0-54.0) % MCV 92 (80-98) fL MCH 31 (27-31) pg MCHC 34 (32-36) % Plt Count 257 (150-400) K/uL Neut % (Auto) 67 H (36-66) % Lymph % (Auto) 13 L (24-44) % [place] % (Auto) 18 H (2-6) % Eos % (Auto) 2 (2-4) % Baso % (Auto) 1 (0-1) % Sodium 138 L (140-148) mmol/L Potassium 4.3 (3.6-5.2) mmol/L Chloride 104 (100-108) mmol/L Carbon Dioxide 25 (21-32) mmol/L Anion Gap 13.3 (5.0-14.0) mmol/L BUN 20 H (7-18) mg/dL Creatinine 1.3 (0.8-1.3) mg/dL Est Cr Clr Drug Dosing 53.87 mL/min Estimated GFR (MDRD) 54 L (>60) Glucose 119 H (74-106) mg/dL Calcium 8.2 L (8.5-10.1) mg/dL Total Bilirubin 0.6 (0.2-1.0) mg/dL AST 16 (15-37) U/L ALT 14 (12-78) U/L Alkaline Phosphatase 76 (46-116) U/L Total Protein 5.8 L (6.4-8.2) g/dL Albumin 2.7 L (3.4-5.0) g/dL Globulin 3.1 (2.3-3.5) g/dL Albumin/Globulin Ratio 0.9 L (1.2-2.2) Med Orders - Current: Current Medications Acetaminophen (Tylenol) 650 mg PO Q4H PRN PRN Reason: Pain/Fever Al Hydroxide/Mg Hydroxide (Mag-Al Plus) 30 ml PO Q4H PRN PRN Reason: Constipation Amlodipine Besylate (Norvasc) 2.5 mg PO DAILY [facility] Last Admin: 11/27/16 08:06 Dose: 2.5 mg Aspirin (Ecotrin) 325 mg PO BID [facility] Last Admin: 11/27/16 08:05 Dose: 325 mg Aspirin (Halfprin) 81 mg PO DAILY [facility] Last Admin: 11/27/16 08:07 Dose: Not Given Bisacodyl (Dulcolax) 10 mg PO DAILY PRN PRN Reason: Constipation Diazepam (Valium) 5 mg IVPUSH Q6H PRN PRN Reason: Spasms Last Admin: 11/25/16 13:45 Dose: 5 mg Diazepam (Valium.) 5 mg PO QID PRN PRN Reason: Spasms Last Admin: 11/25/16 21:17 Dose: 5 mg Diphenhydramine HCl (Benadryl) 25 mg IVPUSH Q4H PRN PRN Reason: Itching Docusate Sodium (Colace) 100 mg PO BID PRN PRN Reason: Constipation Lactated Ringer's (Ringers, Lactated) 1,000 mls @ 100 mls/hr IV ASDIRECTED [facility] Last Admin: 11/25/16 06:21 Dose: 100 mls/hr Ketorolac Tromethamine (Toradol) 30 mg IVPUSH Q8H PRN PRN Reason: Pain Stop: 11/30/16 10:12 Last Admin: 11/26/16 15:31 Dose: 30 mg Magnesium Hydroxide (Milk Of Magnesia) 30 ml PO BID PRN PRN Reason: Constipation Metoprolol Tartrate (Lopressor) 25 mg PO Q12H [facility] Last Admin: 11/27/16 08:06 Dose: 25 mg Morphine Sulfate (Morphine) 2 mg IVPUSH Q2H PRN PRN Reason: Pain Last Admin: 11/26/16 04:30 Dose: 2 mg Ondansetron HCl (Zofran) 8 mg IVPUSH Q4H PRN PRN Reason: Nausea/Vomiting Oxycodone/Acetaminophen (Percocet 325-5 Mg) 2 tab PO Q4H PRN PRN Reason: Pain Last Admin: 11/27/16 08:07 Dose: 2 tab Rosuvastatin Calcium (Crestor) 5 mg PO MoWeFr@2100 [facility] Last Admin: 11/26/16 21:17 Dose: 5 mg Senna (Senna) 8.6 mg PO BID PRN PRN Reason: Constipation Sodium Chloride (Saline Flush) 10 ml FLUSH DAILY [facility] Last Admin: 11/27/16 08:07 Dose: 10 ml Tramadol HCl (Ultram) 100 mg PO Q6H PRN PRN Reason: Pain Last Admin: 11/26/16 08:03 Dose: 100 mg Zolpidem Tartrate (Ambien) 5 mg PO BEDTIME PRN PRN Reason: Sleep Discontinued Medications Aspirin (Ecotrin) 325 mg PO BID [facility] Ropivacaine 49.25 ml/Ketorolac Tromethamine 30 mg/Epinephrine HCl 0.5 mg/ Clonidine HCl 80 mcg/ Sodium Chloride 48.45 ml 0 ml INJECT ASDIRECTED [facility] Stop: 11/25/16 10:00 Last Admin: 11/25/16 09:09 Dose: 100 syringe Fentanyl (Sublimaze) Confirm Administered Dose 100 mcg .ROUTE .STK-MED ONE Stop: 11/25/16 07:25 Gentamicin Sulfate (Gentamicin) Confirm Administered Dose 240 mg .ROUTE .STK- MED ONE Stop: 11/25/16 06:40 Last Admin: 11/25/16 08:31 Dose: 240 mg Cefazolin Sodium/Dextrose 2 gm (/ Premix) 50 mls @ 100 mls/hr IV ONETIME ONE Stop: 11/25/16 06:29 Last Admin: 11/25/16 07:26 Dose: 100 mls/hr Lactated Ringer's (Ringers, Lactated) Confirm Administered Dose 1,000 mls @ as directed .ROUTE .STK-MED ONE Stop: 11/25/16 09:50 Cefazolin Sodium/Dextrose 2 gm (/ Premix) 50 mls @ 100 mls/hr IV Q8H [facility] Stop: 11/26/16 03:29 Last Admin: 11/25/16 17:45 Dose: Not Given Cefazolin Sodium 2 gm/ Sodium (Chloride) 50 mls @ 100 mls/hr IV Q8H [facility] Stop: 11/26/16 06:29 Last Admin: 11/26/16 05:35 Dose: 100 mls/hr Lactated Ringer's (Ringers, Lactated) 500 mls @ 100 mls/hr IV ASDIRECTED [facility] Stop: 11/25/16 23:45 Last Admin: 11/25/16 20:46 Dose: 100 mls/hr Sodium Chloride (Normal Saline) 500 mls @ 999 mls/hr IV .BOLUS ONE Stop: 11/26/16 01:28 Last Admin: 11/26/16 01:15 Dose: 999 mls/hr Sodium Chloride (Normal Saline) 1,000 mls @ 125 mls/hr IV ASDIRECTED [facility] Last Admin: 11/26/16 07:20 Dose: 125 mls/hr Ketorolac Tromethamine (Toradol) 30 mg IVPUSH Q8H PRN PRN Reason: Pain Stop: 11/30/16 10:12 Midazolam HCl (Versed 1 Mg/Ml) Confirm Administered Dose 2 mg .ROUTE .STK-MED ONE Stop: 11/25/16 07:25 Naloxone HCl (Narcan) 0.1 mg IVPUSH ASDIRECTED PRN PRN Reason: Oversedation Stop: 11/25/16 10:09 Propofol (Diprivan 20 Ml) Confirm Administered Dose 200 mg .ROUTE .STK-MED ONE Stop: 11/25/16 07:25 Propofol (Diprivan 20 Ml) Confirm Administered Dose 200 mg .ROUTE .STK-MED ONE Stop: 11/25/16 08:04 Propofol (Diprivan 20 Ml) Confirm Administered Dose 200 mg .ROUTE .STK-MED ONE Stop: 11/25/16 09:46 Tramadol HCl (Ultram) 100 mg PO Q6H PRN PRN Reason: Pain - Exam General: alert, oriented Extremities: normal pulses, no tenderness/swelling, no calf tenderness Skin: warm, dry, intact Wound/Incisions: healing well, dressing dry and intact, no drainage, erythema Neurological: no new focal deficit, normal gait Psy/Mental Status: alert, normal affect, normal mood - Problem List & Annotations (1) Status post total left knee replacement SNOMED Code(s): 9727395286397 Code(s): Z96.652 - PRESENCE OF LEFT ARTIFICIAL KNEE JOINT Status: Acute Current Visit: Yes - Problem List Review Problem List Initiated/Reviewed/Updated: Yes - My Orders Last 24 Hours: My Active Orders 11/26/16 09:00 Aspirin [Ecotrin] 325 mg PO BID Sodium Chloride 0.9% [Saline Flush] 10 ml FLUSH DAILY Drain Removal [OM.PC] Routine 11/27/16 08:33 Ready for Discharge [RC] PER UNIT ROUTINE 11/28/16 05:15 CBC WITH AUTO DIFF [HEME] DAILY COMPREHENSIVE METABOLIC PN,CMP [CHEM] DAILY 11/29/16 05:15 CBC WITH AUTO DIFF [HEME] DAILY COMPREHENSIVE METABOLIC PN,CMP [CHEM] DAILY - Plan Plan:: Assessment and plan - Primary osteoarthritis of the left knee - German is status post left total knee arthroplasty. He is doing very well. He is ambulating without any difficulties. He is continuing to request physical therapy. His pain is under control at this time. He has no other issues. He is planning to go home today. I did instruct on dressing changes. We also talked to her pain medication. I informed them that they can notify me if they have any other issues. He is to followup with physical therapy on Thursday and follow up with us in 2 weeks. I did recommend prescription for 90 Percocet and 60 of aspirin.
--- NOTE | 2016-12-25 09:59 | PCM.DCSUM1 ---
Discharge Summary - Hospital Course Free Text/Narrative:: German is a pleasant 71 year old male who is POD 2 of a left total knee replacement. He is doing very well. His pain is controlled with oral pain medication. He is working with PT/OT and is tolerating well. He has no concerns at this time. - Discharge Data Discharge Date: 11/27/16 Discharge Disposition: Home, Self-Care 01 Condition: Good - Discharge Diagnosis/Problem(s) (1) Status post total left knee replacement SNOMED Code(s): 5861982317067 ICD Code: Z96.652 - PRESENCE OF LEFT ARTIFICIAL KNEE JOINT Status: Acute - Patient Summary/Data Consults: Consultations 11/25/16 10:12 Consult to Physician [CONS] Routine Consulting Provider: Robin Flores Courtesy Call Completed to Consulting Physician: Yes OT Evaluation and Treatment [CONS] Routine Please Evaluate and Treat. OT Reason for Consult: Strengthening This query below is only for informational purposes and is not editable. PT Evaluation and Treatment [CONS] Routine Please Evaluate and Treat. PT Reason for Consult: Strengthening This query below is only for informational purposes and is not editable. 11/26/16 00:49 Consult to Physician [CONS] Routine Consulting Provider: Jumana Dozier Courtesy Call Completed to Consulting Physician: Yes Reason for Consult: low urine output Date Notified: 11/26/16 Time Notified: 00:50 - Patient Instructions Diet: Usual Diet as Tolerated Activity: Apply Ice, As Tolerated Driving: Do Not Drive Showering/Bathing: May Shower Wound/Incision Care: Keep Operative Site/Wound Site Clean and Dry, Change Dressing Daily - Discharge Plan Prescriptions/Med Rec: Acetaminophen/oxyCODONE [Percocet 325-5 MG] 1 tab PO Q4H PRN #90 tablet PRN Reason: Pain Aspirin [Ecotrin] 325 mg PO BID #60 tab.ec Home Medications: Home Meds Aspirin [Adult Low Dose Aspirin EC] 81 mg PO DAILY 01/25/14 [History] Metoprolol Tartrate [Lopressor] 25 mg PO Q12HR 01/25/14 [History] Naproxen [Naprosyn] 500 mg PO BIDMEALS 01/25/14 [History] Nitroglycerin [Nitrostat] 0.4 mg SL ASDIRECTED PRN 01/25/14 [History] amLODIPine Besylate [Norvasc] 2.5 mg PO DAILY 01/25/14 [History] Furosemide [Lasix] 20 mg PO DAILY PRN 05/23/16 [History] Rosuvastatin [Crestor] 5 mg PO MOWEFR 05/23/16 [History] Acetaminophen/oxyCODONE [Percocet 325-5 MG] 1 tab PO Q4H PRN #90 tablet [Rx] Aspirin [Ecotrin] 325 mg PO BID #60 tab.ec 11/26/16 [Rx] Other Amb Orders: PT Evaluation and Treatment [CONS] Location: Determined By Patient Referrals: Marcella Fu, SPRAGGER [Nurse Practitioner] - (Patient is to follow up in 2 weeks) - Discharge Summary/Plan Comment Discharge Summary/Plan Comment: Patient is doing well. He is to be discharged today with outpatient Pt/OT. He is to follow up with the ortho clinic in 2 weeks. He is to take his percocet as prescribed. He also needs to take 325mg of asa daily. He is to call if he has any concerns in the meantime. - Patient Data Vitals - Most Recent: Last Vital Signs Temp 37 C 11/27/16 07:19 Pulse 100 11/27/16 08:06 Resp 16 11/27/16 07:19 BP 138/84 11/27/16 08:06 Pulse Ox 95 11/27/16 09:07 Weight - Most Recent: 229 lb Med Orders - Current: Current Medications Discontinued Medications Acetaminophen (Tylenol) 650 mg PO Q4H PRN PRN Reason: Pain/Fever Al Hydroxide/Mg Hydroxide (Mag-Al Plus) 30 ml PO Q4H PRN PRN Reason: Constipation Amlodipine Besylate (Norvasc) 2.5 mg PO DAILY [facility] Last Admin: 11/27/16 08:06 Dose: 2.5 mg Aspirin (Ecotrin) 325 mg PO BID [facility] Aspirin (Ecotrin) 325 mg PO BID [facility] Last Admin: 11/27/16 08:05 Dose: 325 mg Aspirin (Halfprin) 81 mg PO DAILY [facility] Last Admin: 11/27/16 08:07 Dose: Not Given Bisacodyl (Dulcolax) 10 mg PO DAILY PRN PRN Reason: Constipation Ropivacaine 49.25 ml/Ketorolac Tromethamine 30 mg/Epinephrine HCl 0.5 mg/ Clonidine HCl 80 mcg/ Sodium Chloride 48.45 ml 0 ml INJECT ASDIRECTED [facility] Stop: 11/25/16 10:00 Last Admin: 11/25/16 09:09 Dose: 100 syringe Diazepam (Valium) 5 mg IVPUSH Q6H PRN PRN Reason: Spasms Last Admin: 11/25/16 13:45 Dose: 5 mg Diazepam (Valium.) 5 mg PO QID PRN PRN Reason: Spasms Last Admin: 11/25/16 21:17 Dose: 5 mg Diphenhydramine HCl (Benadryl) 25 mg IVPUSH Q4H PRN PRN Reason: Itching Docusate Sodium (Colace) 100 mg PO BID PRN PRN Reason: Constipation Fentanyl (Sublimaze) Confirm Administered Dose 100 mcg .ROUTE .STK-MED ONE Stop: 11/25/16 07:25 Gentamicin Sulfate (Gentamicin) Confirm Administered Dose 240 mg .ROUTE .STK- MED ONE Stop: 11/25/16 06:40 Last Admin: 11/25/16 08:31 Dose: 240 mg Lactated Ringer's (Ringers, Lactated) 1,000 mls @ 100 mls/hr IV ASDIRECTED [facility] Last Admin: 11/25/16 06:21 Dose: 100 mls/hr Cefazolin Sodium/Dextrose 2 gm (/ Premix) 50 mls @ 100 mls/hr IV ONETIME ONE Stop: 11/25/16 06:29 Last Admin: 11/25/16 07:26 Dose: 100 mls/hr Lactated Ringer's (Ringers, Lactated) Confirm Administered Dose 1,000 mls @ as directed .ROUTE .STK-MED ONE Stop: 11/25/16 09:50 Cefazolin Sodium/Dextrose 2 gm (/ Premix) 50 mls @ 100 mls/hr IV Q8H [facility] Stop: 11/26/16 03:29 Last Admin: 11/25/16 17:45 Dose: Not Given Cefazolin Sodium 2 gm/ Sodium (Chloride) 50 mls @ 100 mls/hr IV Q8H [facility] Stop: 11/26/16 06:29 Last Admin: 11/26/16 05:35 Dose: 100 mls/hr Lactated Ringer's (Ringers, Lactated) 500 mls @ 100 mls/hr IV ASDIRECTED [facility] Stop: 11/25/16 23:45 Last Admin: 11/25/16 20:46 Dose: 100 mls/hr Sodium Chloride (Normal Saline) 500 mls @ 999 mls/hr IV .BOLUS ONE Stop: 11/26/16 01:28 Last Admin: 11/26/16 01:15 Dose: 999 mls/hr Sodium Chloride (Normal Saline) 1,000 mls @ 125 mls/hr IV ASDIRECTED [facility] Last Admin: 11/26/16 07:20 Dose: 125 mls/hr Ketorolac Tromethamine (Toradol) 30 mg IVPUSH Q8H PRN PRN Reason: Pain Stop: 11/30/16 10:12 Ketorolac Tromethamine (Toradol) 30 mg IVPUSH Q8H PRN PRN Reason: Pain Stop: 11/30/16 10:12 Last Admin: 11/26/16 15:31 Dose: 30 mg Magnesium Hydroxide (Milk Of Magnesia) 30 ml PO BID PRN PRN Reason: Constipation Metoprolol Tartrate (Lopressor) 25 mg PO Q12H [facility] Last Admin: 11/27/16 08:06 Dose: 25 mg Midazolam HCl (Versed 1 Mg/Ml) Confirm Administered Dose 2 mg .ROUTE .STK-MED ONE Stop: 11/25/16 07:25 Morphine Sulfate (Morphine) 2 mg IVPUSH Q2H PRN PRN Reason: Pain Last Admin: 11/26/16 04:30 Dose: 2 mg Naloxone HCl (Narcan) 0.1 mg IVPUSH ASDIRECTED PRN PRN Reason: Oversedation Stop: 11/25/16 10:09 Ondansetron HCl (Zofran) 8 mg IVPUSH Q4H PRN PRN Reason: Nausea/Vomiting Oxycodone/Acetaminophen (Percocet 325-5 Mg) 2 tab PO Q4H PRN PRN Reason: Pain Last Admin: 11/27/16 08:07 Dose: 2 tab Propofol (Diprivan 20 Ml) Confirm Administered Dose 200 mg .ROUTE .STK-MED ONE Stop: 11/25/16 07:25 Propofol (Diprivan 20 Ml) Confirm Administered Dose 200 mg .ROUTE .STK-MED ONE Stop: 11/25/16 08:04 Propofol (Diprivan 20 Ml) Confirm Administered Dose 200 mg .ROUTE .STK-MED ONE Stop: 11/25/16 09:46 Rosuvastatin Calcium (Crestor) 5 mg PO [id number] [facility] Last Admin: 11/26/16 21:17 Dose: 5 mg Senna (Senna) 8.6 mg PO BID PRN PRN Reason: Constipation Sodium Chloride (Saline Flush) 10 ml FLUSH DAILY [facility] Last Admin: 11/27/16 08:07 Dose: 10 ml Tramadol HCl (Ultram) 100 mg PO Q6H PRN PRN Reason: Pain Tramadol HCl (Ultram) 100 mg PO Q6H PRN PRN Reason: Pain Last Admin: 11/26/16 08:03 Dose: 100 mg Zolpidem Tartrate (Ambien) 5 mg PO BEDTIME PRN PRN Reason: Sleep - Exam General: Reports: alert, oriented Extremities: Reports: no edema, normal pulses, no tenderness/swelling, no calf tenderness Skin: Reports: warm, dry, intact Wound/Incisions: Reports: healing well, dressing dry and intact, no drainage Neurological: Reports: no new focal deficit, normal gait Psy/Mental Status: Reports: alert, normal affect *Q Meaningful Use (DIS) - VTE *Q VTE Criteria *Q: - Stroke *Q Stroke Criteria *Q: - AMI *Q AMI Criteria *Q:
== END 2016-11-27 10:59 | disposition home or self-care (01) | DRG 470 ==
LOC: JP.MS 05:35 → JP.SDS 05:35 → EDSTATUS 07:30 → JP.MS 10:50
PROVIDERS: ADMIT Orthopaedic Surgery; ATTEND Orthopaedic Surgery
PROC: 0SRD0J9 Replacement of Left Knee Joint with Synthetic Substitute, Cemented, Open Approach (ICD-10-PCS; principal; 2016-11-25)
DX: M17.12 Unilateral primary osteoarthritis, left knee (principal); I10 Essential (primary) hypertension; I25.10 Atherosclerotic heart disease of native coronary artery without angina pectoris; E78.5 Hyperlipidemia, unspecified; Z87.891 Personal history of nicotine dependence; I25.2 Old myocardial infarction; Z95.1 Presence of aortocoronary bypass graft; W18.30XA Fall on same level, unspecified, initial encounter; Y93.89 Activity, other specified; Y92.230 Patient room in hospital as the place of occurrence of the external cause; Z79.82 Long term (current) use of aspirin
CPT/HCPCS: 36415; 51798; 73560-26-LT; 73560-26-RT; 73560-LT; 73560-RT; 80053; 85025; 86850; 86900; 86901; 94762; 97110-GP; 97116-GP; 97140-GP; 97162-GP; 97165-GO; 97530-GP; 97535-GP; A9270-GY; C1713; C1776; J0690; J1580; J1885; J2250; J2270; J2704; J2795; J3010; J3360; J7040; J7050; J7120

== ENCOUNTER 2017-03-24 10:15 | Inpatient (IN) | payer MEDICARE, BC ==
[2017-03-24] MEDS ORDERED: Sodium Chloride 0.9% 1,000 ML IV SCH (11:30)
--- NOTE | 2017-03-24 11:41 | EDM.PDOC ---
ED HPI GENERAL MEDICAL PROBLEM - General Chief Complaint: Chest Pain Stated Complaint: HEART ISSUES Time Seen by Provider: 03/24/17 11:37 Source of Information: Reports: Patient, Family History Limitations: Reports: No Limitations - History of Present Illness INITIAL COMMENTS - FREE TEXT/NARRATIVE: pt has been very weak and tired for the past 2 days. He has had a definite problem with palpitations for the past 2 days. He has had numerous black tarry stools and he had about 6 stools today. His stools are normally loose. Onset: Gradual, Other ( past 2 days. ) Duration: Day(s):, Getting Worse Location: Reports: Abdomen Associated Symptoms: Reports: Nausea/Vomiting, Shortness of Breath, Weakness, Other (pt has not vomited. ) denies Pain Score (Numeric/FACES): 0 - Related Data Allergies Allergy/AdvReac Type Severity Reaction Status Date / Time doxazosin mesylate Allergy Hypertensio Verified 03/24/17 10:23 [From Cardura] n niacin Allergy Other Verified 03/24/17 10:23 paroxetine HCl [From Paxil] Allergy Rash Verified 03/24/17 10:23 rofecoxib [From Vioxx] Allergy Edema Verified 03/24/17 10:23 colestipol AdvReac Muscle Verified 03/24/17 10:23 Aches pravastatin AdvReac Leg Cramps Verified 03/24/17 10:23 simvastatin AdvReac Leg Cramps Verified 03/24/17 10:23 tamsulosin HCl [From Flomax] AdvReac Hypertensio Verified 03/24/17 10:23 n Home Meds: Home Meds Metoprolol Tartrate [Lopressor] 25 mg PO Q12HR 01/25/14 [History] Nitroglycerin [Nitrostat] 0.4 mg SL ASDIRECTED PRN 01/25/14 [History] amLODIPine Besylate [Norvasc] 2.5 mg PO DAILY 01/25/14 [History] Furosemide [Lasix] 20 mg PO DAILY PRN 05/23/16 [History] Rosuvastatin [Crestor] 5 mg PO MOWEFR 05/23/16 [History] Aspirin 81 mg PO DAILY 01/22/17 [History] Ferrous Sulfate 325 mg PO BIDMEALS #60 tab 03/26/17 [Rx] Pantoprazole Sodium [Protonix] 40 mg PO BID #30 tablet. 03/26/17 [Rx] Past Medical History HEENT History: Reports: None Cardiovascular History: Reports: High Cholesterol, Hypertension, [place] Gastrointestinal History: Reports: Cholelithiasis, Chronic Diarrhea, Colon Polyp , GERD, Irritable Bowel Syndrome Musculoskeletal History: Reports: Arthritis, Other (See Below) Other Musculoskeletal History: R hip pain. s/p L knee Endocrine/Metabolic History: Reports: Obesity/BMI 30+ Hematologic History: Reports: Blood Transfusion(s) - Infectious Disease History Infectious Disease History: Reports: Chicken Pox, Mumps - Past Surgical History HEENT Surgical History: Reports: Adenoidectomy, Tonsillectomy Cardiovascular Surgical History: Reports: Coronary Artery Bypass GI Surgical History: Reports: Cholecystectomy, Colonoscopy, EGD, Minor Fundoplication Social & Family History - Tobacco Use Smoking Status *Q: Former Smoker Years of Tobacco use: 40 Packs/Tins Daily: 1 Used Tobacco, but Quit: Yes Month Tobacco Last Used: January Second Hand Smoke Exposure: No - Caffeine Use Caffeine Use: Reports: Coffee, Tea - Alcohol Use Days Per Week of Alcohol Use: 7 Number of Drinks Per Day: 1 Total Drinks Per Week: 7 - Recreational Drug Use Recreational Drug Use: No ED ROS GENERAL - Review of Systems Review Of Systems: See Below Constitutional: Reports: No Symptoms, Fatigue HEENT: Reports: No Symptoms Respiratory: Reports: Shortness of Breath, Other (particularly with activity. ) Cardiovascular: Reports: Other (pt has not had chest pain. ) Endocrine: Reports: No Symptoms GI/Abdominal: Reports: Melena, Other (pt has been passing alot of black tarry stools. ) : Reports: No Symptoms Musculoskeletal: Reports: No Symptoms ED EXAM, GENERAL - Physical Exam Exam: See Below Free Text/Narrative:: pt appears slightly pale and he staes he just feels washed out. He has not had chest pain. Exam Limited By: No Limitations General Appearance: Alert, Anxious, Mild Distress Ears: Normal TMs Nose: Normal Inspection Throat/Mouth: Normal Inspection Head: Atraumatic Neck: Normal Inspection Respiratory/Chest: Other ( short of brearh with activity. ) Cardiovascular: Other ( there is a concern that he may have intermitent atrial fib) GI/Abdominal: Soft, Non-Tender (Male) Exam: Normal Inspection Rectal (Males) Exam: Other ( No masses present. There is alot of black tarry stools present. pt states he has had 6 already today. ) Back Exam: Normal Inspection Extremities: Normal Inspection Neurological: Alert, Oriented, Normal Cognition Psychiatric: Depressed Mood Course - Vital Signs Last Recorded V/S: Last Vital Signs Temp 36.8 C 03/26/17 02:00 Pulse 75 03/26/17 02:00 Resp 16 03/26/17 02:00 BP 92/37 L 03/26/17 02:00 Pulse Ox 95 03/26/17 02:00 - Orders/Labs/Meds Labs: Laboratory Tests 03/24/17 03/24/17 03/24/17 Range/Units 11:23 11:23 11:23 WBC 13.6 H (4.5-11.0) K/uL RBC 4.18 L (4.30-5.90) M/uL Hgb 12.2 (12.0-15.0) g/dL Hct 36.1 L (40.0-54.0) % MCV 86 (80-98) fL MCH 29 (27-31) pg MCHC 34 (32-36) % Plt Count 331 (150-400) K/uL Add Manual Diff Yes Neutrophils % (Manual) 84 H (36-66) % Band Neutrophils % 1 L (5-11) % Lymphocytes % (Manual) 8 L (24-44) % Monocytes % (Manual) 7 H (2-6) % Sodium 137 L (140-148) mmol/L Potassium 4.7 (3.6-5.2) mmol/L Chloride 106 (100-108) mmol/L Carbon Dioxide 25 (21-32) mmol/L Anion Gap 10.7 (5.0-14.0) mmol/L BUN 50 H D (7-18) mg/dL Creatinine 1.5 H (0.8-1.3) mg/dL Est Cr Clr Drug Dosing 46.71 mL/min Estimated GFR (MDRD) 46 L (>60) Glucose 143 H (74-106) mg/dL Calcium 8.7 (8.5-10.1) mg/dL Total Bilirubin 0.4 (0.2-1.0) mg/dL AST 16 (15-37) U/L ALT 25 D (12-78) U/L Alkaline Phosphatase 80 (46-116) U/L Creatine Kinase 18 L (39-308) U/L Troponin I (0.000-0.056) ng/mL Uye-E-Vrissfzplyv Pept 156 H (5-125) pg/mL Total Protein 6.5 (6.4-8.2) g/dL Albumin 3.1 L (3.4-5.0) g/dL Globulin 3.4 (2.3-3.5) g/dL Albumin/Globulin Ratio 0.9 L (1.2-2.2) Blood Type Gel Antibody Screen Crossmatch 03/24/17 03/24/17 Range/Units 11:35 12:35 WBC (4.5-11.0) K/uL RBC (4.30-5.90) M/uL Hgb (12.0-15.0) g/dL Hct (40.0-54.0) % MCV (80-98) fL MCH (27-31) pg MCHC (32-36) % Plt Count (150-400) K/uL Add Manual Diff Neutrophils % (Manual) (36-66) % Band Neutrophils % (5-11) % Lymphocytes % (Manual) (24-44) % Monocytes % (Manual) (2-6) % Sodium (140-148) mmol/L Potassium (3.6-5.2) mmol/L Chloride (100-108) mmol/L Carbon Dioxide (21-32) mmol/L Anion Gap (5.0-14.0) mmol/L BUN (7-18) mg/dL Creatinine (0.8-1.3) mg/dL Est Cr Clr Drug Dosing mL/min Estimated GFR (MDRD) (>60) Glucose (74-106) mg/dL Calcium (8.5-10.1) mg/dL Total Bilirubin (0.2-1.0) mg/dL AST (15-37) U/L ALT (12-78) U/L Alkaline Phosphatase (46-116) U/L Creatine Kinase (39-308) U/L Troponin I < 0.017 (0.000-0.056) ng/mL Nus-D-Zuzjpbtmexz Pept (5-125) pg/mL Total Protein (6.4-8.2) g/dL Albumin (3.4-5.0) g/dL Globulin (2.3-3.5) g/dL Albumin/Globulin Ratio (1.2-2.2) Blood Type A POSITIVE Gel Antibody Screen Negative Crossmatch See Detail Meds: Medications Discontinued Medications Generic Name Dose Route Start Last Admin Trade Name Freq PRN Reason Stop Dose Admin Albuterol 2.5 mg 03/24/17 14:03 Proventil Neb Soln NEB Q4H PRN Shortness Of Breath/wheezing Fentanyl Confirm 03/25/17 13:59 Sublimaze Administered 03/25/17 14:00 Dose 100 mcg .ROUTE .STK-MED ONE Sodium Chloride 1,000 mls @ 100 mls/hr 03/24/17 11:30 03/24/17 11:35 Normal Saline IV 100 mls/hr ASDIRECTED MACHO Administration Pantoprazole Sodium 80 mg/ 100 mls @ 10 mls/hr 03/24/17 13:15 03/24/17 13:13 Sodium Chloride IV 10 mls/hr .Q10H MACHO Administration Pantoprazole Sodium 80 mg/ 100 mls @ 10 mls/hr 03/24/17 23:00 03/26/17 10:02 Sodium Chloride IV 10 mls/hr .Q10H MACHO Administration Sodium Chloride 1,000 mls @ 125 mls/hr 03/24/17 14:03 03/26/17 10:03 Normal Saline IV 125 mls/hr ASDIRECTED MACHO Administration Metoprolol Tartrate 25 mg 03/24/17 21:00 03/25/17 21:13 Lopressor PO 25 mg BID MACHO Administration Ondansetron HCl 4 mg 03/24/17 14:03 Zofran IV Q4H PRN Nausea/Vomiting Pantoprazole Sodium 80 mg 03/24/17 12:00 03/24/17 13:02 Protonix Iv IVPUSH 80 mg .BOLUS MACHO Administration Propofol Confirm 03/25/17 13:59 Diprivan 20 Ml Administered 03/25/17 14:00 Dose 200 mg .ROUTE .STK-MED ONE Rosuvastatin Calcium 5 mg 03/25/17 09:00 03/25/17 09:33 Crestor PO 5 mg [id number] MACHO Administration Sodium Chloride 10 ml 03/24/17 14:03 Saline Flush FLUSH ASDIRECTED PRN Keep Vein Open - Re-Assessments/Exams Free Text/Narrative Re-Assessment/Exam: 03/24/17 11:47 occult blood is positive. His hg is 12. He was typed and crossed with 2 units of packed cells. He will be admitted. 03/24/17 12:35 Departure - Departure Time of Disposition: 12:43 Disposition: Admitted As Inpatient 65 Condition: Fair Clinical Impression: GI bleeding, Weakness, Intermittent atrial fibrillation
[2017-03-24] MEDS ORDERED: Pantoprazole 40 MG Vial IVPUSH SCH (12:00)
[2017-03-24] MEDS ORDERED: Sodium Chloride 0.9% 100 ML with Pantoprazole 80 MG IV SCH ×4 (12:00→13:15)
--- NOTE | 2017-03-24 12:35 | CR ---
Chest 1V Frontal INDICATION: sob FINDINGS: Sternotomy. AP portable chest x-ray otherwise negative.
--- NOTE | 2017-03-24 13:28 | PCM.HP ---
H&P History of Present Illness - General Date of Service: 03/24/17 Admit Problem/Dx: Admission Diagnosis/Problem Admission Diagnosis/Problem Bleeding Source of Information: Patient, Family, Provider, RN Notes Reviewed History Limitations: Reports: No Limitations - History of Present Illness Initial Comments - Free Text/Narative: German is a 72-year-old gentleman who is admitted through the emergency department with weakness, dyspnea, and lightheadedness secondary to active GI bleed. Over the past 2 days his had several melenic-appearing stools and during that period of time his developed symptoms as described above. He presented to the emergency department this morning, hemoglobin is 12.2 and he is noted to be tachycardic with underlying atrial fibrillation. He has a previous history of paroxysmal atrial fibrillation, but has not had this now for some time. Rate is in the range of 100-110. He has had a previous history of esophageal reflux and previous Minor fundoplication. Denies any past history of gastritis or ulcer disease. He's not taken recent nonsteroidals, denies significant alcohol use or tobacco use. denies Pain Score (Numeric/FACES): 0 - Related Data Allergies/Adverse Reactions: Allergies Allergy/AdvReac Type Severity Reaction Status Date / Time doxazosin mesylate Allergy Hypertensio Verified 03/24/17 10:23 [From Cardura] n niacin Allergy Other Verified 03/24/17 10:23 paroxetine HCl [From Paxil] Allergy Rash Verified 03/24/17 10:23 rofecoxib [From Vioxx] Allergy Edema Verified 03/24/17 10:23 colestipol AdvReac Muscle Verified 03/24/17 10:23 Aches pravastatin AdvReac Leg Cramps Verified 03/24/17 10:23 simvastatin AdvReac Leg Cramps Verified 03/24/17 10:23 tamsulosin HCl [From Flomax] AdvReac Hypertensio Verified 03/24/17 10:23 n Home Medications: Home Meds Metoprolol Tartrate [Lopressor] 25 mg PO Q12HR 01/25/14 [History] Nitroglycerin [Nitrostat] 0.4 mg SL ASDIRECTED PRN 01/25/14 [History] amLODIPine Besylate [Norvasc] 2.5 mg PO DAILY 01/25/14 [History] Furosemide [Lasix] 20 mg PO DAILY PRN 05/23/16 [History] Rosuvastatin [Crestor] 5 mg PO MOWEFR 05/23/16 [History] Aspirin 81 mg PO DAILY 01/22/17 [History] Past Medical History HEENT History: Reports: None Cardiovascular History: Reports: High Cholesterol, Hypertension, [place] Gastrointestinal History: Reports: Cholelithiasis, Chronic Diarrhea, Colon Polyp , GERD, Irritable Bowel Syndrome Musculoskeletal History: Reports: Arthritis, Other (See Below) Other Musculoskeletal History: R hip pain. s/p L knee Endocrine/Metabolic History: Reports: Obesity/BMI 30+ Hematologic History: Reports: Blood Transfusion(s) - Infectious Disease History Infectious Disease History: Reports: Chicken Pox, Mumps - Past Surgical History HEENT Surgical History: Reports: Adenoidectomy, Tonsillectomy Cardiovascular Surgical History: Reports: Coronary Artery Bypass GI Surgical History: Reports: Cholecystectomy, Colonoscopy, EGD, Minor Fundoplication Social & Family History - Tobacco Use Smoking Status *Q: Former Smoker Years of Tobacco use: 40 Packs/Tins Daily: 1 Used Tobacco, but Quit: Yes Month Tobacco Last Used: January Second Hand Smoke Exposure: No - Caffeine Use Caffeine Use: Reports: Coffee, Tea - Alcohol Use Days Per Week of Alcohol Use: 7 Number of Drinks Per Day: 1 Total Drinks Per Week: 7 - Recreational Drug Use Recreational Drug Use: No H&P Review of Systems - Review of Systems: Review Of Systems: See Below General: Reports: Weakness. Denies: Fever, Chills HEENT: Reports: No Symptoms Pulmonary: Reports: Shortness of Breath. Denies: Wheezing, Cough, Sputum, Hemoptysis Cardiovascular: Reports: Dyspnea on Exertion, Lightheadedness. Denies: Chest Pain, Palpitations, Orthopnea, PND, Edema Gastrointestinal: Reports: Black Stool, Decreased Appetite, Nausea. Denies: Abdominal Pain, Constipation, Diarrhea, Difficulty Swallowing, Distension, Vomiting Genitourinary: Reports: No Symptoms Musculoskeletal: Reports: No Symptoms Skin: Reports: No Symptoms Psychiatric: Reports: No Symptoms Neurological: Reports: No Symptoms Hematologic/Lymphatic: Reports: No Symptoms Immunologic: Reports: No Symptoms Exam - Exam Exam: See Below - Vital Signs Vital Signs: Last Vital Signs Temp 96.6 F 03/24/17 10:32 Pulse 95 03/24/17 13:08 Resp 16 03/24/17 13:08 BP 122/64 03/24/17 13:08 Pulse Ox 99 03/24/17 13:08 Weight: 216 lb - Exam Quality Assessment: DVT Prophylaxis General: Alert, Oriented, Cooperative, Mild Distress HEENT: Conjunctiva Clear, Normal Nasal Septum, Posterior Pharynx Clear, Pupils Equal. No: Hearing Intact, Mucosa Moist & [place] Neck: Supple, Trachea Midline, +2 Carotid Pulse wo Bruit Lungs: Clear to Auscultation, Normal Respiratory Effort Cardiovascular: Normal S1, Normal S2, Irregular Rhythm, Tachycardia. No: Systolic Murmur, Diastolic Murmur GI/Abdominal Exam: Normal Bowel Sounds, Soft, Non-Tender, No Distention Back Exam: Normal Inspection, Full Range of Motion, NT Extremities: Normal Inspection, No Pedal Edema Skin: Warm, Dry, Intact Neurological: Cranial Nerves Intact, Strength Equal Bilateral, Normal Speech, Normal Tone, Sensation Intact. No: Focal Deficit Neuro Extensive - Mental Status: Alert, Oriented x3, Normal Mood/Affect, Normal Cognition, Memory Intact - Patient Data Lab Results Last 24 hrs: Laboratory Results - last 24 hr 03/24/17 03/24/17 03/24/17 Range/Units 11:23 11:23 11:23 WBC 13.6 H (4.5-11.0) K/uL RBC 4.18 L (4.30-5.90) M/uL Hgb 12.2 (12.0-15.0) g/dL Hct 36.1 L (40.0-54.0) % MCV 86 (80-98) fL MCH 29 (27-31) pg MCHC 34 (32-36) % Plt Count 331 (150-400) K/uL Add Manual Diff Yes Neutrophils % (Manual) 84 H (36-66) % Band Neutrophils % 1 L (5-11) % Lymphocytes % (Manual) 8 L (24-44) % Monocytes % (Manual) 7 H (2-6) % Sodium 137 L (140-148) mmol/L Potassium 4.7 (3.6-5.2) mmol/L Chloride 106 (100-108) mmol/L Carbon Dioxide 25 (21-32) mmol/L Anion Gap 10.7 (5.0-14.0) mmol/L BUN 50 H D (7-18) mg/dL Creatinine 1.5 H (0.8-1.3) mg/dL Est Cr Clr Drug Dosing 46.71 mL/min Estimated GFR (MDRD) 46 L (>60) Glucose 143 H (74-106) mg/dL Calcium 8.7 (8.5-10.1) mg/dL Total Bilirubin 0.4 (0.2-1.0) mg/dL AST 16 (15-37) U/L ALT 25 D (12-78) U/L Alkaline Phosphatase 80 (46-116) U/L Creatine Kinase 18 L (39-308) U/L Troponin I (0.000-0.056) ng/mL Gtg-T-Ahnxgwdygbw Pept 156 H (5-125) pg/mL Total Protein 6.5 (6.4-8.2) g/dL Albumin 3.1 L (3.4-5.0) g/dL Globulin 3.4 (2.3-3.5) g/dL Albumin/Globulin Ratio 0.9 L (1.2-2.2) Blood Type Gel Antibody Screen Crossmatch 03/24/17 03/24/17 Range/Units 11:35 12:35 WBC (4.5-11.0) K/uL RBC (4.30-5.90) M/uL Hgb (12.0-15.0) g/dL Hct (40.0-54.0) % MCV (80-98) fL MCH (27-31) pg MCHC (32-36) % Plt Count (150-400) K/uL Add Manual Diff Neutrophils % (Manual) (36-66) % Band Neutrophils % (5-11) % Lymphocytes % (Manual) (24-44) % Monocytes % (Manual) (2-6) % Sodium (140-148) mmol/L Potassium (3.6-5.2) mmol/L Chloride (100-108) mmol/L Carbon Dioxide (21-32) mmol/L Anion Gap (5.0-14.0) mmol/L BUN (7-18) mg/dL Creatinine (0.8-1.3) mg/dL Est Cr Clr Drug Dosing mL/min Estimated GFR (MDRD) (>60) Glucose (74-106) mg/dL Calcium (8.5-10.1) mg/dL Total Bilirubin (0.2-1.0) mg/dL AST (15-37) U/L ALT (12-78) U/L Alkaline Phosphatase (46-116) U/L Creatine Kinase (39-308) U/L Troponin I < 0.017 (0.000-0.056) ng/mL Xdw-U-Nuqyzkuhbko Pept (5-125) pg/mL Total Protein (6.4-8.2) g/dL Albumin (3.4-5.0) g/dL Globulin (2.3-3.5) g/dL Albumin/Globulin Ratio (1.2-2.2) Blood Type A POSITIVE Gel Antibody Screen Negative Crossmatch See Detail Result Diagrams: 03/24/17 11:23 03/24/17 11:23 Alf Results Last 24 hrs: Microbiology 03/24/17 11:18 Stool Occult Blood (ALF) - Final Stool / Feces *Q Meaningful Use (ADM) - VTE *Q VTE Criteria *Q: VTE Pharmacological Contraindications *Q: Active Hemorrhage - VTE Risk Assess *Q Each Risk Factor Represents 1 Point: Obesity (BMI greater than 30) Total Score 1 Point Risk Factors: 1 Each Risk Factor Represents 2 Points: Age 60 - 74 Years Total Score 2 Point Risk Factors: 2 Each Risk Factor Represents 3 Points: None Total Score 3 Point Risk Factors: 0 Each Risk Factor Represents 5 Points: None Total Score 5 Point Risk Factors: 0 Venous Thromboembolism Risk Factor Score *Q: 3 - Stroke *Q Stroke Criteria *Q: - AMI *Q AMI Criteria *Q: Problem List Initiated/Reviewed/Updated: Yes Orders Last 24hrs: Active Orders 24 hr Category Date Time Status Patient Status Manage Transfer [TRANSFER] Routine ADT 03/24/17 13:04 Active Cardiac Monitoring [RC] .As Directed Care 03/24/17 13:04 Active EKG Documentation Completion [RC] ASDIRECTED Care 03/24/17 11:16 Active RED BLOOD CELLS LP [BBK] Stat Lab 03/24/17 11:35 Results TYPE AND SCREEN [BBK] Stat Lab 03/24/17 11:35 Results UA W/MICROSCOPIC [URIN] Urgent Lab 03/24/17 11:15 Uncollected Pantoprazole [ProTONIX IV] Med 03/24/17 12:00 Active 80 mg IVPUSH .BOLUS Sodium Chloride 0.9% [Normal Saline] 1,000 ml Med 03/24/17 11:30 Active IV ASDIRECTED Sodium Chloride 0.9% [Normal Saline] 100 ml Med 03/24/17 13:15 Active Pantoprazole [ProTONIX IV] 80 mg IV 10 mls/hr Resuscitation Status Routine Resus Stat 03/24/17 13:07 Ordered EKG 12 Lead [EK] Routine Ther 03/24/17 11:16 Ordered Medication Orders Sodium Chloride (Normal Saline) 1,000 mls @ 100 mls/hr IV ASDIRECTED [facility] Last Admin: 03/24/17 11:35 Dose: 100 mls/hr Pantoprazole Sodium 80 mg/ (Sodium Chloride) 100 mls @ 10 mls/hr IV .Q10H [facility] Last Admin: 03/24/17 13:13 Dose: 10 mls/hr Pantoprazole Sodium (Protonix Iv) 80 mg IVPUSH .BOLUS [facility] Last Admin: 03/24/17 13:02 Dose: 80 mg Assessment/Plan Comment:: ASSESSMENT AND PLAN UPPER GI BLEED-history of melenic-appearing stools over the past 2 days associated with weakness lightheadedness and shortness of breath. No history of recent nonsteroidal use and he denies significant epigastric pain. He does take low-dose aspirin because of his history of coronary artery disease, is not on any other anticoagulant medication. -Maintain 2 IV sites -Protonix 80 mg IV bolus given in the ED -Protonix continuous infusion 8 mg per hour -Nothing by mouth except for meds -Serial hemoglobin levels -IV fluids for hydration -Consult Dr. Dan for EGD in a.m. CHRONIC KIDNEY DISEASE STAGE III -Closely monitor urine output and renal function during hospital stay CORONARY ARTERY DISEASE-status post coronary artery bypass surgery last year. Currently denies symptoms of chest pain -Hold aspirin -Continue outpatient medical therapy MAINTENANCE ISSUES -DVT prophylaxis; SCUDs, hold on anticoagulation because of active bleeding -GI prophylaxis; Protonix as above -Koenig catheter; not indicated -Nutrition; nothing by mouth -Nicotine dependence; not required CODE STATUS-FULL CODE ADMISSION STATUS-patient will be admitted to inpatient status, expect at least a 2 night hospital stay for evaluation and management of problems as outlined above. At the time of this admission I do not reasonably expected evaluation and management of this problem will require more than a 96 hour hospital stay. DISPOSITION-anticipate discharge to home after the hospital stay. PRIMARY CARE PROVIDER-Dr. Butler
[2017-03-24] MEDS ORDERED: Albuterol 0.083% 2.5 MG/3 ML Neb Soln NEB PRN (14:03)
[2017-03-24] MEDS ORDERED: Ondansetron 4 MG/2 ML SDV IV PRN (14:03)
[2017-03-24] MEDS ORDERED: Sodium Chloride 0.9% 10 ML Syringe FLUSH PRN (14:03)
[2017-03-24] MEDS: Metoprolol Tartrate 25 MG Tab PO SCH (21:13)
[2017-03-24] MEDS: Sodium Chloride 0.9% 100 ML with Pantoprazole 80 MG IV SCH ×2 (21:51)
[2017-03-25] MEDS: Sodium Chloride 0.9% 100 ML with Pantoprazole 80 MG IV SCH ×6 (00:53→19:26)
[2017-03-25] MEDS: Sodium Chloride 0.9% 1,000 ML IV SCH ×2 (03:58→11:53)
[2017-03-25] MEDS ORDERED: Rosuvastatin 10 MG Tab PO SCH (09:00)
[2017-03-25] MEDS: Metoprolol Tartrate 25 MG Tab PO SCH ×2 (09:32→21:13)
--- NOTE | 2017-03-25 09:49 | PCM.PN ---
- General Info Date of Service: 03/25/17 Functional Status: Reports: Urinating - Review of Systems General: Reports: Weakness. Denies: Fever, Chills Pulmonary: Reports: No Symptoms Cardiovascular: Reports: No Symptoms Gastrointestinal: Reports: Melena. Denies: Abdominal Pain, Diarrhea, Difficulty Swallowing, Nausea, Vomiting Systems Review Comment:: This patient has been stable since admission yesterday, no further melenic stool. Hemoglobin has dropped to 9.9 but there is been no further evidence of active bleeding. EGD with Dr. Dan is pending at this morning. - Patient Data Vitals - Most Recent: Last Vital Signs Temp 97.5 F 03/25/17 08:00 Pulse 92 03/25/17 09:32 Resp 19 03/25/17 08:00 BP 102/35 L 03/25/17 09:32 Pulse Ox 97 03/25/17 08:00 Weight - Most Recent: 217 lb I&O - Last 24 Hours: Intake & Output 03/24/17 03/25/17 03/25/17 22:59 06:59 14:59 Intake Total 2256 Output Total 200 300 Balance -200 1956 Lab Results Last 24 Hours: Laboratory Results - last 24 hr 03/24/17 03/24/17 03/25/17 Range/Units 16:00 21:55 04:28 WBC (4.5-11.0) K/uL RBC (4.30-5.90) M/uL Hgb 11.4 L 10.5 L (12.0-15.0) g/dL Hct (40.0-54.0) % MCV (80-98) fL MCH (27-31) pg MCHC (32-36) % Plt Count (150-400) K/uL Neut % (Auto) (36-66) % Lymph % (Auto) (24-44) % [place] % (Auto) (2-6) % Eos % (Auto) (2-4) % Baso % (Auto) (0-1) % Sodium (140-148) mmol/L Potassium (3.6-5.2) mmol/L Chloride (100-108) mmol/L Carbon Dioxide (21-32) mmol/L Anion Gap (5.0-14.0) mmol/L BUN (7-18) mg/dL Creatinine (0.8-1.3) mg/dL Est Cr Clr Drug Dosing mL/min Estimated GFR (MDRD) (>60) Glucose (74-106) mg/dL Calcium (8.5-10.1) mg/dL Urine Color Yellow Urine Appearance Clear Urine pH 5.0 (4.5-8.0) Ur Specific [place] 1.020 (1.008-1.030) Urine Protein Negative (NEGATIVE) mg/dL Urine Glucose (UA) Normal (NEGATIVE) mg/dL Urine Ketones Negative (NEGATIVE) mg/dL Urine Occult Blood Negative (NEGATIVE) Urine Nitrite Negative (NEGAITVE) Urine Bilirubin Negative (NEGATIVE) Urine Urobilinogen Normal (NORMAL) mg/dL Ur Leukocyte Esterase Negative (NEGATIVE) Urine RBC 0-5 (0-5) Urine WBC 0-5 (0-5) Ur Epithelial Cells Rare Amorphous Sediment Not seen Urine Bacteria Few Urine Mucus Not seen 03/25/17 03/25/17 Range/Units 05:39 05:39 WBC 10.4 (4.5-11.0) K/uL RBC 3.41 L (4.30-5.90) M/uL Hgb 9.9 L (12.0-15.0) g/dL Hct 29.8 L (40.0-54.0) % MCV 87 (80-98) fL MCH 29 (27-31) pg MCHC 33 (32-36) % Plt Count 260 (150-400) K/uL Neut % (Auto) 72 H (36-66) % Lymph % (Auto) 14 L (24-44) % [place] % (Auto) 12 H (2-6) % Eos % (Auto) 1 L (2-4) % Baso % (Auto) 1 (0-1) % Sodium 139 L (140-148) mmol/L Potassium 3.9 (3.6-5.2) mmol/L Chloride 110 H (100-108) mmol/L Carbon Dioxide 24 (21-32) mmol/L Anion Gap 8.9 (5.0-14.0) mmol/L BUN 31 H (7-18) mg/dL Creatinine 1.2 (0.8-1.3) mg/dL Est Cr Clr Drug Dosing 58.39 mL/min Estimated GFR (MDRD) 59 L (>60) Glucose 103 (74-106) mg/dL Calcium 8.1 L (8.5-10.1) mg/dL Urine Color Urine Appearance Urine pH (4.5-8.0) Ur Specific [place] (1.008-1.030) Urine Protein (NEGATIVE) mg/dL Urine Glucose (UA) (NEGATIVE) mg/dL Urine Ketones (NEGATIVE) mg/dL Urine Occult Blood (NEGATIVE) Urine Nitrite (NEGAITVE) Urine Bilirubin (NEGATIVE) Urine Urobilinogen (NORMAL) mg/dL Ur Leukocyte Esterase (NEGATIVE) Urine RBC (0-5) Urine WBC (0-5) Ur Epithelial Cells Amorphous Sediment Urine Bacteria Urine Mucus Med Orders - Current: Current Medications Albuterol (Proventil Neb Soln) 2.5 mg NEB Q4H PRN PRN Reason: Shortness Of Breath/wheezing Pantoprazole Sodium 80 mg/ (Sodium Chloride) 100 mls @ 10 mls/hr IV .Q10H [facility] Last Admin: 03/25/17 08:27 Dose: 10 mls/hr Sodium Chloride (Normal Saline) 1,000 mls @ 125 mls/hr IV ASDIRECTED [facility] Last Admin: 03/25/17 03:58 Dose: 125 mls/hr Metoprolol Tartrate (Lopressor) 25 mg PO BID [facility] Last Admin: 03/25/17 09:32 Dose: 25 mg Ondansetron HCl (Zofran) 4 mg IV Q4H PRN PRN Reason: Nausea/Vomiting Rosuvastatin Calcium (Crestor) 5 mg PO MoWeFr@0900 [facility] Last Admin: 03/25/17 09:33 Dose: 5 mg Sodium Chloride (Saline Flush) 10 ml FLUSH ASDIRECTED PRN PRN Reason: Keep Vein Open Discontinued Medications Sodium Chloride (Normal Saline) 1,000 mls @ 100 mls/hr IV ASDIRECTED [facility] Last Admin: 03/24/17 11:35 Dose: 100 mls/hr Pantoprazole Sodium 80 mg/ (Sodium Chloride) 100 mls @ 10 mls/hr IV .Q10H [facility] Last Admin: 03/24/17 13:13 Dose: 10 mls/hr Pantoprazole Sodium (Protonix Iv) 80 mg IVPUSH .BOLUS [facility] Last Admin: 03/24/17 13:02 Dose: 80 mg - Exam Quality Assessment: DVT Prophylaxis General: Alert, Oriented, Cooperative, No Acute Distress Lungs: Clear to Auscultation, Normal Respiratory Effort Cardiovascular: Regular Rate, Regular Rhythm, No Murmurs GI/Abdominal Exam: Normal Bowel Sounds, Soft, Non-Tender, No Distention Extremities: Normal Inspection, Normal Range of Motion, Non-Tender, No Pedal Edema, Normal Capillary Refill Skin: Warm, Dry, Intact - Problem List Review Problem List Initiated/Reviewed/Updated: Yes - My Orders Last 24 Hours: My Active Orders 03/24/17 13:07 Resuscitation Status Routine 03/24/17 14:03 Patient Status [ADT] Routine Intake and Output [RC] QSHIFT Notify Provider Consults [RC] ASDIRECTED Notify Provider Vital Signs [RC] ASDIRECTED Oxygen Therapy [RC] PRN Peripheral IV Care [RC] . DIRECTED RT Aerosol Therapy [RC] ASDIRECTED Up With Assistance [RC] ASDIRECTED VTE/DVT Education [RC] Per Unit Routine Vital Signs [RC] Q2H Consult to Physician [CONS] Routine Albuterol [Proventil Neb Soln] 2.5 mg NEB Q4H PRN Ondansetron [Zofran] 4 mg IV Q4H PRN Sodium Chloride 0.9% [Normal Saline] 1,000 ml IV ASDIRECTED Sodium Chloride 0.9% [Saline Flush] 10 ml FLUSH ASDIRECTED PRN Peripheral IV Insertion Adult [OM.PC] Routine VTE Pharmacological Contraindications [AST] Per Unit Routine 03/24/17 23:00 Sodium Chloride 0.9% [Normal Saline] 100 ml Pantoprazole [ProTONIX IV] 80 mg IV 10 mls/hr 03/24/17 Lunch Nothing per Oral Now Diet [DIET] 03/25/17 13:00 HGB [HEMOGLOBIN] [HEME] Stat 03/25/17 21:00 HGB [HEMOGLOBIN] [HEME] Stat 03/26/17 05:00 CBC WITH AUTO DIFF [HEME] Timed - Plan Plan:: ASSESSMENT AND PLAN UPPER GI BLEED-no further evidence of active bleeding since admission -Maintain 2 IV sites -Protonix 80 mg IV bolus given in the ED -Protonix continuous infusion 8 mg per hour -Nothing by mouth except for meds -Serial hemoglobin levels -IV fluids for hydration -EGD this a.m. with Dr. Dan CHRONIC KIDNEY DISEASE STAGE III -Closely monitor urine output and renal function during hospital stay CORONARY ARTERY DISEASE-status post coronary artery bypass surgery last year. Currently denies symptoms of chest pain -Hold aspirin -Continue outpatient medical therapy MAINTENANCE ISSUES -DVT prophylaxis; SCUDs, hold on anticoagulation because of active bleeding -GI prophylaxis; Protonix as above -Koenig catheter; not indicated -Nutrition; nothing by mouth -Nicotine dependence; not required CODE STATUS-FULL CODE ADMISSION STATUS-patient will be admitted to inpatient status, expect at least a 2 night hospital stay for evaluation and management of problems as outlined above. At the time of this admission I do not reasonably expected evaluation and management of this problem will require more than a 96 hour hospital stay. DISPOSITION-anticipate discharge to home after the hospital stay. PRIMARY CARE PROVIDER-Dr. Butler
[2017-03-25] MEDS ORDERED: Propofol 200 MG/20 ML SDV ONE (13:59)
[2017-03-25] MEDS ORDERED: fentaNYL 100 MCG/2 ML SDV ONE (13:59)
--- NOTE | 2017-03-25 15:23 | OR ---
DATE OF PROCEDURE: 03/25/2017 PREOPERATIVE DIAGNOSIS: Hemoccult-positive black tarry stools. POSTOPERATIVE DIAGNOSES: Hemoccult-positive black tarry stools, antral ulcer, currently not bleeding. PROCEDURE: Esophagogastroduodenoscopy with antral biopsies for CLOtest, sent for pathology to look for Helicobacter pylori. SURGEON: Meng Dan MD. ANESTHESIA: IV anesthesia with monitored anesthesia care. INDICATION: This 72-year-old white male is in the hospital after passing black tarry stools. His hemoglobin was 9.9. A request was made for an upper endoscopy. I counseled him for an upper endoscopy with possible biopsy including risks and alternatives , and he gave his informed consent to proceed. DESCRIPTION OF PROCEDURE: The patient was placed in the left lateral decubitus position. IV anesthesia was administered by the Anesthesia Service. Time-out was held. The flexible video Olympus upper endoscope was passed through his mouth, down his esophagus, and into his stomach. We readily noted an antral ulcer. The scope was easily passed through the pylorus into the duodenal reaching its third portion. The scope was then slowly withdrawn, examining the mucosa throughout. At no point we see any new or old blood. The scope was brought up through the duodenum which appeared unremarkable. The scope was brought back through the pylorus into the antrum. The ulcer was again seen, currently it is not bleeding. There was no clot associated with the ulcer and we see no visible vessel in the bottom of the ulcer. We obtained antral biopsies for CLOtest and for pathology to look for Helicobacter pylori. The scope was retroflexed, the proximal stomach appeared unremarkable. The scope was straightened and brought up to the GE junction. There was evidence of chronic inflammation. The scope was then brought proximally up through remainder of the esophagus, which otherwise appeared unremarkable and was removed. He tolerated the procedure well. Meng Dan MD /[id number] MTDD
[2017-03-26 02:08] VITALS: BP 92/37
--- NOTE | 2017-03-26 09:47 | PCM.DCSUM1 ---
Discharge Summary - Hospital Course Brief History: This patient is a 72-year-old gentleman who is admitted through the emergency department with a 2 day history of melenic stools, weakness, lightheadedness, secondary to an upper GI bleed. - Discharge Data Discharge Date: 03/26/17 Discharge Disposition: Home, Self-Care 01 Condition: Fair - Discharge Diagnosis/Problem(s) (1) Gastric ulcer with hemorrhage SNOMED Code(s): 21733411 ICD Code: K25.4 - CHRONIC OR UNSPECIFIED GASTRIC ULCER WITH HEMORRHAGE Status: Acute Current Visit: Yes (2) Weakness SNOMED Code(s): 68912801 ICD Code: R53.1 - WEAKNESS Status: Acute Priority: Medium Current Visit : Yes (3) Acute blood loss anemia SNOMED Code(s): 634831958 ICD Code: D62 - ACUTE POSTHEMORRHAGIC ANEMIA Status: Acute Current Visit : Yes - Patient Summary/Data Consults: Consultations 03/24/17 14:03 Consult to Physician [CONS] Routine Consulting Provider: Meng Dan Call Completed to Consulting Physician: Yes Reason for Consult: Upper GI bleed, EGD in a.. Hospital Course: This patient is a 72-year-old gentleman who developed a 2 day history of melenic stools associated with weakness, shortness of breath, and lightheadedness. He presented to the emergency department for further evaluation , initial hemoglobin was 12.2, stool was found to be heme positive. He was admitted to the hospital with the diagnosis of probable upper GI bleed. 2 IV sites were initiated and he was typed and crossed for 2 units of red blood cells on hold. IV fluids were started for hydration, he was given 80 mg bolus of Protonix in the emergency department and started on a continuous infusion at 8 mg per hour. After the first 24 hours hemoglobin had dropped to 9.9 but he had no further evidence of active bleeding with no further melenic stools. He was seen and evaluated by Dr. Dan for surgical consult and EGD was performed. On EGD was noted to have a gastric ulcer but no evidence of active bleeding. He was monitored and additional 24 hours during that period time his hemoglobin did slowly decrease to 8.3 but there was no evidence of risk or active bleeding. He was encouraged consider an additional day of hospitalization for further monitoring of hemoglobin levels but preferred to be discharged home. He will return in the morning for follow-up hemoglobin level and certainly will return sooner if he notes further melenic stools weakness or lightheadedness. He is been instructed on the importance of monitoring and adjusting his diet given the underlying ulcer. Activity will be as tolerated. Follow-up appointment will be scheduled with Dr. Kovacs within one week. Results of biopsies for Helicobacter are pending at the time of discharge. Follow-up EGD will be scheduled with Dr. Dan in 6 weeks. - Patient Instructions Diet, Other: Ulcer dietary restrictions Other/Special Instructions: Return in a.m. to hospital lab for recheck hemoglobin. Please schedule follow-up appointment with Dr. Kovacs within one week. Please schedule follow-up EGD with Dr. Dan in 6 weeks. - Discharge Plan Prescriptions/Med Rec: Ferrous Sulfate 325 mg PO BIDMEALS #60 tab Pantoprazole Sodium [Protonix] 40 mg PO BID #30 tablet. Home Medications: Home Meds Metoprolol Tartrate [Lopressor] 25 mg PO Q12HR 01/25/14 [History] Nitroglycerin [Nitrostat] 0.4 mg SL ASDIRECTED PRN 01/25/14 [History] amLODIPine Besylate [Norvasc] 2.5 mg PO DAILY 01/25/14 [History] Furosemide [Lasix] 20 mg PO DAILY PRN 05/23/16 [History] Rosuvastatin [Crestor] 5 mg PO MOWEFR 05/23/16 [History] Aspirin 81 mg PO DAILY 01/22/17 [History] Ferrous Sulfate 325 mg PO BIDMEALS #60 tab 03/26/17 [Rx] Pantoprazole Sodium [Protonix] 40 mg PO BID #30 tablet. 03/26/17 [Rx] Referrals: Niko Butler MD [Primary Care Provider] - - Patient Data Vitals - Most Recent: Last Vital Signs Temp 98.2 F 03/26/17 02:00 Pulse 75 03/26/17 02:00 Resp 16 03/26/17 02:00 BP 92/37 L 03/26/17 02:00 Pulse Ox 95 03/26/17 02:00 Weight - Most Recent: 217 lb 0.016 oz I&O - Last 24 hours: Intake & Output 03/25/17 03/26/17 03/26/17 22:59 06:59 14:59 Intake Total 1757 Output Total 200 Balance 1557 Lab Results - Last 24 hrs: Laboratory Results - last 24 hr 03/25/17 03/25/17 03/26/17 Range/Units 13:00 20:55 05:00 WBC 7.7 (4.5-11.0) K/uL RBC 2.90 L (4.30-5.90) M/uL Hgb 8.9 L 8.6 L 8.3 L (12.0-15.0) g/dL Hct 25.5 L (40.0-54.0) % MCV 88 (80-98) fL MCH 29 (27-31) pg MCHC 33 (32-36) % Plt Count 229 (150-400) K/uL Neut % (Auto) 68 H (36-66) % Lymph % (Auto) 17 L (24-44) % [place] % (Auto) 11 H (2-6) % Eos % (Auto) 3 (2-4) % Baso % (Auto) 1 (0-1) % Med Orders - Current: Current Medications Albuterol (Proventil Neb Soln) 2.5 mg NEB Q4H PRN PRN Reason: Shortness Of Breath/wheezing Pantoprazole Sodium 80 mg/ (Sodium Chloride) 100 mls @ 10 mls/hr IV .Q10H [facility] Last Admin: 03/25/17 19:26 Dose: 10 mls/hr Sodium Chloride (Normal Saline) 1,000 mls @ 125 mls/hr IV ASDIRECTED [facility] Last Admin: 03/25/17 11:53 Dose: 125 mls/hr Metoprolol Tartrate (Lopressor) 25 mg PO BID [facility] Last Admin: 03/25/17 21:13 Dose: 25 mg Ondansetron HCl (Zofran) 4 mg IV Q4H PRN PRN Reason: Nausea/Vomiting Rosuvastatin Calcium (Crestor) 5 mg PO MoWeFr@0900 [facility] Last Admin: 03/25/17 09:33 Dose: 5 mg Sodium Chloride (Saline Flush) 10 ml FLUSH ASDIRECTED PRN PRN Reason: Keep Vein Open Discontinued Medications Fentanyl (Sublimaze) Confirm Administered Dose 100 mcg .ROUTE .STK-MED ONE Stop: 03/25/17 14:00 Sodium Chloride (Normal Saline) 1,000 mls @ 100 mls/hr IV ASDIRECTED [facility] Last Admin: 03/24/17 11:35 Dose: 100 mls/hr Pantoprazole Sodium 80 mg/ (Sodium Chloride) 100 mls @ 10 mls/hr IV .Q10H [facility] Last Admin: 03/24/17 13:13 Dose: 10 mls/hr Pantoprazole Sodium (Protonix Iv) 80 mg IVPUSH .BOLUS [facility] Last Admin: 03/24/17 13:02 Dose: 80 mg Propofol (Diprivan 20 Ml) Confirm Administered Dose 200 mg .ROUTE .STK-MED ONE Stop: 03/25/17 14:00 *Q Meaningful Use (DIS) - VTE *Q VTE Criteria *Q: VTE Pharmacological Contraindications *Q: Active Hemorrhage - Stroke *Q Stroke Criteria *Q: - AMI *Q AMI Criteria *Q:
[2017-03-26] MEDS: Sodium Chloride 0.9% 100 ML with Pantoprazole 80 MG IV SCH ×2 (10:02)
[2017-03-26] MEDS: Sodium Chloride 0.9% 1,000 ML IV SCH (10:03)
== END 2017-03-26 10:15 | disposition home or self-care (01) | DRG 379 ==
LOC: JP.ED 10:15 → JP.ICU 13:04
PROVIDERS: ADMIT Hospitalist; ATTEND Hospitalist
PROC: 0DB68ZX Excision of Stomach, Via Natural or Artificial Opening Endoscopic, Diagnostic (ICD-10-PCS; principal; 2017-03-25)
DX: K25.4 Chronic or unspecified gastric ulcer with hemorrhage (principal); K92.1 Melena; N18.3 Chronic kidney disease, stage 3 (moderate); I12.9 Hypertensive chronic kidney disease with stage 1 through stage 4 chronic kidney disease, or unspecified chronic kidney disease; Z87.891 Personal history of nicotine dependence; K21.9 Gastro-esophageal reflux disease without esophagitis; I48.0 Paroxysmal atrial fibrillation; I25.10 Atherosclerotic heart disease of native coronary artery without angina pectoris; R53.1 Weakness; R00.2 Palpitations; R06.02 Shortness of breath; D64.9 Anemia, unspecified; E78.00 Pure hypercholesterolemia, unspecified; I25.2 Old myocardial infarction; M19.90 Unspecified osteoarthritis, unspecified site; Z95.1 Presence of aortocoronary bypass graft; Z79.82 Long term (current) use of aspirin; Z88.8 Allergy status to other drugs, medicaments and biological substances
CPT/HCPCS: 36415; 71010 ×2; 80053; 82272; 82550; 83880; 84484; 85025; 86850; 86900; 86901; 86920; 86922; 93005; 96361; 96374; 99285; C9113; J7040; 80048; 81001; 85018; 87081; 88305; 93010; A9270-GY; J2704; J3010; J7030

== ENCOUNTER 2017-05-06 06:24 | Day surgery (SDC) | payer MEDICARE, BC ==
[2017-05-06] MEDS ORDERED: Lactated Ringers 1,000 ML IV SCH (07:00)
[2017-05-06] MEDS ORDERED: Propofol 200 MG/20 ML SDV ONE ×2 (07:40)
[2017-05-06] MEDS ORDERED: fentaNYL 100 MCG/2 ML SDV ONE (07:40)
[2017-05-06 09:25] VITALS: BP 162/85
--- NOTE | 2017-05-06 11:31 | OR ---
DATE OF PROCEDURE: 05/06/2017 PREOPERATIVE DIAGNOSES: History of antral ulcer and history of colon polyps. POSTOPERATIVE DIAGNOSES: Healed antral ulcer, colonic diverticulosis, and a small colon polyp 40 cm from the anal verge. PROCEDURE: Esophagogastroduodenoscopy and colonoscopy to the cecum with biopsy resection of small colon polyp 40 cm from the anal verge. SURGEON: Meng Dan MD. ANESTHESIA: IV anesthesia with monitored anesthesia care. INDICATION: This 72-year-old white male is referred for upper and lower endoscopy. Indication for upper endoscopy is a history of an antral ulcer. He was admitted to the hospital in March of this year for bleeding and was found to have the antral ulcer, which was not bleeding at the time of his endoscopy. He is here now for followup to see if this is healed. Additionally, he has a history of colon polyps, which is the indication for his colonoscopy. I counseled him for upper and lower endoscopy with possible biopsy and/or polypectomy including risks, alternatives, and he gave his informed consent to proceed. DESCRIPTION OF PROCEDURE: The patient was placed in a left lateral decubitus position. IV anesthesia was administered by the Anesthesia Service. Time-out was held. The flexible video Olympus upper endoscope was passed through his mouth, down his esophagus, and into his stomach. The scope was easily passed through the pylorus into the duodenum, reaching his third portion. The scope was then slowly withdrawn, examining the mucosa throughout. The duodenal mucosa appeared unremarkable. The scope was brought up through the pylorus. The antrum appeared unremarkable. The ulcer appeared to be healed. The scope was retroflexed. The proximal stomach appeared unremarkable. The scope was straightened and brought up to the GE junction. This appeared unremarkable. The scope was then brought up through the unremarkable-appearing esophagus and was removed. Next, a rectal exam was performed, which was unremarkable. The flexible video Olympus colonoscope was introduced through his anus, up his rectum, and out his colon, all the way to the cecum. En route, we saw multiple left- sided diverticula. There was no bleeding or inflammation associated with any of them. Once the cecum was reached, the scope was slowly withdrawn, examining the mucosa throughout. At about 40 cm from the anal verge, we encountered a polyp. This was fairly small, but it appeared to not have a nice edge in the mucosa. Because of this, we decided to tattoo after we removed it. We removed it then with a biopsy forceps and we tattooed this area using Celia ink. The scope was withdrawn further with no other lesions other than the diverticula noted. The scope was retroflexed in the rectum with the distal rectum appearing unremarkable. The scope was straightened and removed. He tolerated the procedure well. Meng Dan MD /[id number] MTDD
== END 2017-05-06 09:30 | disposition home or self-care (01) ==
LOC: JP.SDS 06:24
PROVIDERS: ATTEND Surgery
DX: Z12.11 Encounter for screening for malignant neoplasm of colon (principal); D12.6 Benign neoplasm of colon, unspecified; Z86.010 Personal history of colon polyps; K57.30 Diverticulosis of large intestine without perforation or abscess without bleeding; K21.9 Gastro-esophageal reflux disease without esophagitis; I10 Essential (primary) hypertension; E78.00 Pure hypercholesterolemia, unspecified; E66.9 Obesity, unspecified; Z68.30 Body mass index [BMI] 30.0-30.9, adult; I21.3 ST elevation (STEMI) myocardial infarction of unspecified site; Z95.1 Presence of aortocoronary bypass graft; Z88.8 Allergy status to other drugs, medicaments and biological substances; Z98.890 Other specified postprocedural states
CPT/HCPCS: 43235; 45380; J2704; J3010; J7120; 88305

== ENCOUNTER 2017-05-19 08:56 | Day surgery (SDC) | payer MEDICARE, BC ==
[~2017-05-19 08:56] MED LIST: Dexamethasone 4 MG/ML SDV ONE; Glycopyrrolate 0.2 MG/ML 5 ML MDV ONE; Neostigmine Methylsulfate 1 MG/ML 5 ML Syringe ONE; Ondansetron 4 MG/2 ML SDV ONE; Propofol 200 MG/20 ML SDV ONE; Rocuronium 50 MG/5 ML Vial ONE; Succinylcholine 200 MG/10 ML MDV ONE
[2017-05-19] MEDS ORDERED: Lactated Ringers 1,000 ML IV SCH (09:30)
[2017-05-19] MEDS ORDERED: ceFAZolin 2 GM in Sodium Chloride 0.9% 50 ML IV ONE (10:15)
[2017-05-19] MEDS ORDERED: Bupivacaine 0.5%/EPINEPHrine 1:200,000 50 ML MDV ONE (11:00)
[2017-05-19] MEDS ORDERED: Povidone-Iodine 10% Soln 118.25 ML Bottle ONE (11:00)
[2017-05-19] MEDS ORDERED: fentaNYL 100 MCG/2 ML SDV ONE ×2 (12:04→12:21)
[2017-05-19] MEDS ORDERED: Gentamicin 40 MG/ML 2 ML Vial ONE (12:07)
[2017-05-19] MEDS ORDERED: Acetaminophen/oxyCODONE 325-5 MG Tab PO PRN (14:14)
[2017-05-19] MEDS ORDERED: Ketorolac 60 MG/2 ML SDV IM ONE (14:20)
[2017-05-19 14:49] VITALS: BP 127/79
--- NOTE | 2017-05-19 14:54 | OR ---
DATE OF PROCEDURE: 05/19/2017 PREOPERATIVE DIAGNOSIS: Left knee arthrofibrosis. POSTOPERATIVE DIAGNOSIS: Left knee arthrofibrosis. PROCEDURE: Left knee arthroscopy with partial synovectomy. ANESTHESIA: General endotracheal intubation. FLUID: Lactated Ringer solution. ESTIMATED BLOOD LOSS: Zero. COMPLICATIONS: None. SPECIMEN: None. DISCHARGE DISPOSITION: Stable to PACU. INDICATIONS: The patient is well known to me. We had performed a left knee arthroscopy on approximately 5 months ago. He had multiple problems throughout his postoperative course as far as with pain. I did rule out as best I could any loosening of the components or infection. Risks and benefits of the procedure were explained to the patient. Informed consent was obtained. DETAILS OF PROCEDURE: The patient was seen preoperatively by myself and the Anesthesia Staff in the preoperative holding where the operative site was marked. He was brought to the operative suite by Anesthesia staff where general anesthesia was administered. The right lower extremity was placed in the stirrups. The left lower extremity had a well- padded tourniquet on the thigh. There was a bump under the left thigh as well. The left lower extremity was prepped and draped in a sterile manner. Time-out was called identifying the correct patient, correct procedure, the correct site, and antibiotics had begun with appropriate period of time. The left lower extremity was exsanguinated and tourniquet was raised to 300 mmHg for 42 minutes and taken down after dressing was on. The medial and lateral portals were made and then I went through the lateral portal and then inserted the scope. I then found a small amount of soft tissue. All of the components appeared to be in well good position without any loosening of the components. There was a suture in the area where he did have some pain. I did a partial synovectomy and concentrated my most of my time just superior to the patella. I did remove the suture at that point too. We then used cautery unit where there was some bleeding. I did place a lateral proximal portal to facilitate easier shaving. We then took our instruments out and closed our portals with 3-0 nylon in horizontal mattress fashion, followed by sterile dressing. The patient was then taken to the PACU in stable condition. Robin Flores DO /[id number]
== END 2017-05-19 15:02 | disposition home or self-care (01) ==
LOC: JP.SDS 08:56
PROVIDERS: ATTEND Orthopaedic Surgery
DX: M24.662 Ankylosis, left knee (principal); I10 Essential (primary) hypertension; K21.9 Gastro-esophageal reflux disease without esophagitis; E78.00 Pure hypercholesterolemia, unspecified; E66.9 Obesity, unspecified; Z68.30 Body mass index [BMI] 30.0-30.9, adult; Z90.49 Acquired absence of other specified parts of digestive tract; Z98.890 Other specified postprocedural states; Z95.1 Presence of aortocoronary bypass graft; Z88.8 Allergy status to other drugs, medicaments and biological substances; Z79.82 Long term (current) use of aspirin; Z79.899 Other long term (current) drug therapy; Z96.659 Presence of unspecified artificial knee joint
CPT/HCPCS: 29876; A9270; J0330; J0690; J1100; J1580; J1885; J2405; J2704; J2710; J3010; J7050; J7120

== ENCOUNTER 2017-05-28 02:24 | Emergency (ER) | payer MEDICARE, BC ==
[2017-05-28] MEDS ORDERED: Sodium Chloride 0.9% 10 ML Syringe FLUSH PRN (03:25)
[2017-05-28] MEDS ORDERED: fentaNYL 100 MCG/2 ML SDV IVPUSH ONE (03:25)
--- NOTE | 2017-05-28 04:13 | EDM.PDOC ---
ED HPI GENERAL MEDICAL PROBLEM - General Chief Complaint: Fever Stated Complaint: FEVER Time Seen by Provider: 05/28/17 02:49 Source of Information: Reports: Patient, Family (spouse), Old Records, RN Notes Reviewed History Limitations: Reports: No Limitations - History of Present Illness INITIAL COMMENTS - FREE TEXT/NARRATIVE: 03.15 Here with his Chief complaint Left knee pain, fever History of present illness 72-year-old male had left knee replacement in November of this year. Comment care by postoperative pain eventually underwent arthroscopic evaluation and synovectomy on May 19. Had developed increased pain and swelling in the left knee postoperatively and 2 days ago while sitting he had increased pressure in the knee and then sudden onset of bleeding out of one of the incisions. It squirted under pressure and hit the wall. This happened in the evening so he called the surgeon's office yesterday because of the bleeding and because of low-grade fever. they phoned a prescription for antibiotics Septra DS for possible infection. 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 At home tonight fever was 101.8, and he has continuing pain in his knee. There is some concern or pain medication because he had a peptic ulcer diagnosed 5 weeks ago. In addition he underwent 5 vessel bypass in August of this year. No nausea or vomiting Appetite was normal No chills No difficulties urinating Some redness of the left knee but no rash Left Knee Pain Score (Numeric/FACES): 10 - Related Data Allergies Allergy/AdvReac Type Severity Reaction Status Date / Time doxazosin mesylate Allergy Hypertensio Verified 05/28/17 03:02 [From Cardura] n niacin Allergy Other Verified 05/28/17 03:02 paroxetine HCl [From Paxil] Allergy Rash Verified 05/28/17 03:02 rofecoxib [From Vioxx] Allergy Edema Verified 05/28/17 03:02 colestipol AdvReac Muscle Verified 05/28/17 03:02 Aches pravastatin AdvReac Leg Cramps Verified 05/28/17 03:02 simvastatin AdvReac Leg Cramps Verified 05/28/17 03:02 Mlpwjuy-Kti-Cyt Reductase AdvReac Muscle Verified 05/28/17 03:02 Inhibitor Aches tamsulosin HCl [From Flomax] AdvReac Hypertensio Verified 05/28/17 03:02 n Home Meds: Home Meds Metoprolol Tartrate [Lopressor] 25 mg PO DAILY 01/25/14 [History] Nitroglycerin [Nitrostat] 0.4 mg SL ASDIRECTED PRN 01/25/14 [History] amLODIPine Besylate [Norvasc] 2.5 mg PO DAILY 01/25/14 [History] Furosemide [Lasix] 20 mg PO DAILY PRN 05/23/16 [History] Rosuvastatin [Crestor] 5 mg PO MOWEFR 05/23/16 [History] Aspirin 81 mg PO DAILY 01/22/17 [History] Sulfamethoxazole/Trimethoprim [Sulfamethoxazole-Tmp Ds Tablet] 1 tab PO BID [History] Past Medical History HEENT History: Reports: Impaired Vision Cardiovascular History: Reports: Afib, Bypass, High Cholesterol, Hypertension, [place] Gastrointestinal History: Reports: Cholelithiasis, Chronic Diarrhea, Colon Polyp , GERD, Irritable Bowel Syndrome Musculoskeletal History: Reports: Arthritis, Fracture, Other (See Below) Other Musculoskeletal History: R hip pain. s/p L knee Endocrine/Metabolic History: Reports: Obesity/BMI 30+ Hematologic History: Reports: Anemia, Blood Transfusion(s) Oncologic (Cancer) History: Reports: Squamous Cell Carcinoma - Infectious Disease History Infectious Disease History: Reports: Chicken Pox, Mumps - Past Surgical History HEENT Surgical History: Reports: Adenoidectomy, Tonsillectomy Cardiovascular Surgical History: Reports: Coronary Artery Bypass GI Surgical History: Reports: Cholecystectomy, Colonoscopy, EGD, Minor Fundoplication Musculoskeletal Surgical History: Reports: Knee Replacement Dermatological Surgical History: Reports: Skin Biopsy Social & Family History - Family History Family Medical History: Noncontributory - Tobacco Use Smoking Status *Q: Never Smoker Years of Tobacco use: 48 Packs/Tins Daily: 2 Used Tobacco, but Quit: Yes Month Tobacco Last Used: Second Hand Smoke Exposure: No - Caffeine Use Caffeine Use: Reports: Coffee - Alcohol Use Days Per Week of Alcohol Use: 0 Number of Drinks Per Day: 1 Total Drinks Per Week: 0 - Recreational Drug Use Recreational Drug Use: No Review of Systems - Review of Systems Review Of Systems: See Below Constitutional: Reports: Chills, Fever. Denies: Diaphoresis Mouth/Throat: Reports: No Symptoms Respiratory: Reports: No Symptoms Cardiovascular: Reports: No Symptoms GI/Abdominal: Reports: No Symptoms Genitourinary: Reports: No Symptoms Musculoskeletal: Reports: Other (Pain swelling redness left knee) Skin: Reports: No Symptoms Neurological: Reports: No Symptoms Psychiatric: Reports: No Symptoms ED EXAM, GENERAL - Physical Exam Exam: See Below Exam Limited By: No Limitations General Appearance: Alert, Moderate Distress (Reports his pain as 11 out of 10) , Other (Minimal fever on arrival, tachycardia, elevated blood pressure. Appears uncomfortable.) Eye Exam: Bilateral Eye: Normal Inspection Ears: Normal External Exam Nose: Normal Inspection, Normal Mucosa Throat/Mouth: Normal Inspection Head: Atraumatic, Normocephalic Neck: Supple, Non-Tender Respiratory/Chest: No Respiratory Distress, Lungs Clear, No Accessory Muscle Use Cardiovascular: Normal Peripheral Pulses, Regular Rate, Rhythm GI/Abdominal: Soft, Non-Tender Extremities: Other (Swelling and slight redness around the suture sites of his left knee. Moderate effusion which is mildly tense, no drainage at the present time decreased range of motion due to pain) Neurological: Alert, Oriented, No Motor/Sensory Deficits Psychiatric: Normal Mood Skin Exam: Warm, Dry, Intact, Erythema (And mild warmth left knee) Lymphatic: No Adenopathy Course - Vital Signs Last Recorded V/S: Last Vital Signs Temp 37.5 C 05/28/17 03:01 Pulse 80 05/28/17 04:25 Resp 16 05/28/17 04:25 BP 160/92 H 05/28/17 04:25 Pulse Ox 95 05/28/17 04:25 - Orders/Labs/Meds Orders: Active Orders 24 hr Category Date Time Status Peripheral IV Care [RC] . DIRECTED Care 05/28/17 03:27 Active Sodium Chloride 0.9% [Saline Flush] Med 05/28/17 03:25 Active 10 ml FLUSH ASDIRECTED PRN Peripheral IV Insertion Adult [OM.PC] Routine Oth 05/28/17 03:25 Ordered Saline Lock Insert [OM.PC] Routine Oth 05/28/17 03:25 Ordered Medication Orders Sodium Chloride (Saline Flush) 10 ml FLUSH ASDIRECTED PRN PRN Reason: Keep Vein Open Last Admin: 05/28/17 04:06 Dose: 10 ml Labs: Laboratory Tests 05/28/17 Range/Units 04:02 WBC 20.3 H (4.5-11.0) K/uL RBC 5.49 (4.30-5.90) M/uL Hgb 15.3 H (12.0-15.0) g/dL Hct 46.7 (40.0-54.0) % MCV 85 (80-98) fL MCH 28 (27-31) pg MCHC 33 (32-36) % Plt Count 269 (150-400) K/uL Meds: Medications Generic Name Dose Route Start Last Admin Trade Name Freq PRN Reason Stop Dose Admin Sodium Chloride 10 ml 05/28/17 03:25 05/28/17 04:06 Saline Flush FLUSH 10 ml ASDIRECTED PRN Administration Keep Vein Open Discontinued Medications Generic Name Dose Route Start Last Admin Trade Name Freq PRN Reason Stop Dose Admin Ceftriaxone Sodium 1,000 mg 05/28/17 04:29 Rocephin IVPUSH 05/28/17 04:30 ONETIME ONE Fentanyl 100 mcg 05/28/17 03:25 05/28/17 04:02 Sublimaze IVPUSH 05/28/17 03:26 100 mcg ONETIME ONE Administration Ceftriaxone Sodium 1 gm/ 50 mls @ 100 mls/hr 05/28/17 04:39 05/28/17 04:47 Sodium Chloride IV 05/28/17 05:08 100 mls/hr ONETIME ONE Administration - Re-Assessments/Exams Free Text/Narrative Re-Assessment/Exam: 05/28/17 04:14 72-year-old male, 9 days post arthroscopic debridement of left knee arthroplasty , with bleeding and increased pain in the last couple of days. Fever tonight. Not in acute distress. Exam is not suggestive of infection but hematoma post surgery CBC ordered For pain panel 100 g IV 05/28/17 04:29 04.25 pain improved, white count is 20.3 Ceftriaxone 1 g IV 05/28/17 05:24 Follow-up with orthopedic surgeon Start sulfa antibiotic which has already been prescribed Use tramadol for pain which he has at home Departure - Departure Time of Disposition: 05:21 Disposition: Home, Self-Care 01 Condition: Good Clinical Impression: Postoperative fever Postoperative hematoma Qualifiers: Surgical complication system/body Area: musculoskeletal system Procedure type: musculoskeletal Qualified Code(s): M96.840 - Postprocedural hematoma of a musculoskeletal structure following a musculoskeletal system procedure - Discharge Information Referrals: Niko Butler MD [Primary Care Provider] - Forms: ED Department Discharge Additional Instructions: Start sulfa antibiotic as prescribed Use tramadol 50 mg up to 4 times daily for pain Contact your surgeon to let them know you're in emergency and that she high white count 20.3 and were given a dose of ceftriaxone/Rocephin antibiotic here. The low fever is most likely due to inflammation and from the blood in the joint but there could be some infection and for this reason antibiotics are being prescribed. - My Orders Last 24 Hours: My Active Orders 05/28/17 03:25 Sodium Chloride 0.9% [Saline Flush] 10 ml FLUSH ASDIRECTED PRN Peripheral IV Insertion Adult [OM.PC] Routine Saline Lock Insert [OM.PC] Routine 05/28/17 03:27 Peripheral IV Care [RC] . DIRECTED - Assessment/Plan Last 24 Hours: My Active Orders 05/28/17 03:25 Sodium Chloride 0.9% [Saline Flush] 10 ml FLUSH ASDIRECTED PRN Peripheral IV Insertion Adult [OM.PC] Routine Saline Lock Insert [OM.PC] Routine 05/28/17 03:27 Peripheral IV Care [RC] . DIRECTED
[2017-05-28] MEDS ORDERED: cefTRIAXone 500 MG Vial IVPUSH ONE (04:29)
[2017-05-28] MEDS ORDERED: cefTRIAXone 1 GM in Sodium Chloride 0.9% 50 ML IV ONE (04:39)
[2017-05-28 04:52] VITALS: BP 160/92
== END 2017-05-28 05:15 | disposition home or self-care (01) ==
LOC: JP.ED 02:24
DX: M96.840 Postprocedural hematoma of a musculoskeletal structure following a musculoskeletal system procedure (principal); R50.82 Postprocedural fever; M25.562 Pain in left knee; E78.00 Pure hypercholesterolemia, unspecified; I10 Essential (primary) hypertension; E66.9 Obesity, unspecified; Z79.82 Long term (current) use of aspirin
CPT/HCPCS: 36415; 85027; 96365; 96375; 99284; J0696; J3010; J7050

== ENCOUNTER 2017-05-28 10:11 | Inpatient (IN) | payer MEDICARE, BC ==
--- NOTE | 2017-05-28 11:00 | EDM.PDOC ---
ED HPI GENERAL MEDICAL PROBLEM - General Chief Complaint: Lower Extremity Injury/Pain Stated Complaint: LEFT KNEE PAIN/SWELLING Time Seen by Provider: 05/28/17 10:20 Source of Information: Reports: Patient, EMS, Family History Limitations: Reports: No Limitations - History of Present Illness INITIAL COMMENTS - FREE TEXT/NARRATIVE: 72-year-old male who is having significant discomfort of his left knee since a surgical procedure just over one week ago. He had significant swelling to the knee until fluid expelled through one of the incisions "night before last". This was serosanguineous and bloody in nature. He had a good, active day yesterday, he was then seen in the emergency room in the evening after developing some increased redness and swelling of the knee and was found to have a white blood cell count of 20,000. He was started on IM Rocephin with oral antibiotics to follow. He was doing so poorly this morning that the antibiotics were not filled, he just came into the emergency room to be reevaluated. He denies any chills, no significant nausea or vomiting. Onset: Gradual (Symptoms have been persistent over the past week) Location: Reports: Lower Extremity, Left Severity: Moderate Associated Symptoms: Reports: Fever/Chills. Denies: Chest Pain, Shortness of Breath Left Leg Pain Score (Numeric/FACES): 10 - Related Data Allergies Allergy/AdvReac Type Severity Reaction Status Date / Time doxazosin mesylate Allergy Hypertensio Verified 05/28/17 03:02 [From Cardura] n niacin Allergy Other Verified 05/28/17 03:02 paroxetine HCl [From Paxil] Allergy Rash Verified 05/28/17 03:02 rofecoxib [From Vioxx] Allergy Edema Verified 05/28/17 03:02 colestipol AdvReac Muscle Verified 05/28/17 03:02 Aches pravastatin AdvReac Leg Cramps Verified 05/28/17 03:02 simvastatin AdvReac Leg Cramps Verified 05/28/17 03:02 Flsojsz-Lya-Imm Reductase AdvReac Muscle Verified 05/28/17 03:02 Inhibitor Aches tamsulosin HCl [From Flomax] AdvReac Hypertensio Verified 05/28/17 03:02 n Home Meds: Home Meds Metoprolol Tartrate [Lopressor] 25 mg PO BID 01/25/14 [History] Nitroglycerin [Nitrostat] 0.4 mg SL ASDIRECTED PRN 01/25/14 [History] amLODIPine Besylate [Norvasc] 2.5 mg PO DAILY 01/25/14 [History] Furosemide [Lasix] 20 mg PO DAILY PRN 05/23/16 [History] Rosuvastatin [Crestor] 5 mg PO MOWEFR 05/23/16 [History] Aspirin 81 mg PO DAILY 01/22/17 [History] Sulfamethoxazole/Trimethoprim [Sulfamethoxazole-Tmp Ds Tablet] 1 tab PO BID [History] Past Medical History HEENT History: Reports: Impaired Vision Cardiovascular History: Reports: Afib, Bypass, High Cholesterol, Hypertension, [place] Gastrointestinal History: Reports: Cholelithiasis, Chronic Diarrhea, Colon Polyp , GERD, Irritable Bowel Syndrome Musculoskeletal History: Reports: Arthritis, Fracture, Other (See Below) Other Musculoskeletal History: R hip pain. s/p L knee Endocrine/Metabolic History: Reports: Obesity/BMI 30+ Hematologic History: Reports: Anemia, Blood Transfusion(s) Oncologic (Cancer) History: Reports: Squamous Cell Carcinoma - Infectious Disease History Infectious Disease History: Reports: Chicken Pox, Mumps - Past Surgical History HEENT Surgical History: Reports: Adenoidectomy, Tonsillectomy Cardiovascular Surgical History: Reports: Coronary Artery Bypass GI Surgical History: Reports: Cholecystectomy, Colonoscopy, EGD, Minor Fundoplication Musculoskeletal Surgical History: Reports: Knee Replacement Dermatological Surgical History: Reports: Skin Biopsy Social & Family History - Family History Family Medical History: Noncontributory - Tobacco Use Smoking Status *Q: Never Smoker Years of Tobacco use: 48 Packs/Tins Daily: 2 Used Tobacco, but Quit: Yes Month Tobacco Last Used: Second Hand Smoke Exposure: No - Caffeine Use Caffeine Use: Reports: Coffee - Alcohol Use Days Per Week of Alcohol Use: 0 Number of Drinks Per Day: 1 Total Drinks Per Week: 0 - Recreational Drug Use Recreational Drug Use: No Review of Systems - Review of Systems Review Of Systems: See Below Constitutional: Reports: Fever (Fever was present yesterday, none today) Respiratory: Reports: No Symptoms Cardiovascular: Reports: No Symptoms GI/Abdominal: Reports: No Symptoms Skin: Reports: Pallor Neurological: Denies: Headache Psychiatric: Reports: No Symptoms ED EXAM, GENERAL - Physical Exam Exam: See Below Exam Limited By: No Limitations General Appearance: Alert, No Apparent Distress (Patient appears uncomfortable but not distressed) Eye Exam: Bilateral Eye: EOMI Respiratory/Chest: No Respiratory Distress, Lungs Clear Cardiovascular: Regular Rate, Rhythm GI/Abdominal: Non-Tender Extremities: Other (The left knee does appear to have an effusion, there is some erythema around the incisions but no widespread warmth or erythema.) Course - Vital Signs Last Recorded V/S: Last Vital Signs Temp 100.4 F 05/28/17 13:47 Pulse 106 H 05/28/17 13:47 Resp 16 05/28/17 13:47 BP 143/63 H 05/28/17 13:47 Pulse Ox 97 05/28/17 13:47 - Orders/Labs/Meds Orders: Active Orders 24 hr Category Date Time Status CULTURE BLOOD [BC] Urgent Lab 05/28/17 10:30 Received CULTURE BLOOD [BC] Urgent Lab 05/28/17 10:35 Received Blood Culture x2 Reflex Set [OM.PC] Urgent Oth 05/28/17 10:22 Ordered Medication Orders Acetaminophen (Tylenol) 650 mg PO Q4H PRN PRN Reason: Pain (Mild 1-3)/fever Albuterol (Proventil Neb Soln) 2.5 mg NEB Q4H PRN PRN Reason: Shortness Of Breath/wheezing Amlodipine Besylate (Norvasc) 2.5 mg PO DAILY [facility] Aspirin (Aspirin) 81 mg PO DAILY [facility] Cefepime HCl 1 gm/ Sodium (Chloride) 50 mls @ 100 mls/hr IV Q8H [facility] Sodium Chloride (Normal Saline) 1,000 mls @ 125 mls/hr IV ASDIRECTED [facility] Vancomycin HCl 1.5 gm/ Sodium (Chloride) 250 mls @ 150 mls/hr IV Q12H [facility] Metoprolol Tartrate (Lopressor) 25 mg PO BID [facility] Morphine Sulfate (Morphine) 4 - 8 mg IVPUSH Q2H PRN PRN Reason: Pain (severe 7-10) Last Admin: 05/28/17 14:17 Dose: 4 mg Admin: 05/28/17 14:03 Dose: 4 mg Ondansetron HCl (Zofran Odt) 4 mg PO Q6H PRN PRN Reason: Nausea able to take PO Ondansetron HCl (Zofran) 4 mg IV Q6H PRN PRN Reason: Nausea/Vomiting Oxycodone HCl (Oxycodone) 5 - 10 mg PO Q4H PRN PRN Reason: Pain (moderate 4-6) Senna/Docusate Sodium (Senna Plus) 1 tab PO BID PRN PRN Reason: Constipation Labs: Laboratory Tests 05/28/17 05/28/17 05/28/17 Range/Units 10:30 10:30 11:13 WBC 30.1 H* (4.5-11.0) K/uL RBC 5.46 (4.30-5.90) M/uL Hgb 15.4 H (12.0-15.0) g/dL Hct 46.7 (40.0-54.0) % MCV 86 (80-98) fL MCH 28 (27-31) pg MCHC 33 (32-36) % Plt Count 309 (150-400) K/uL Neut % (Auto) 90 H (36-66) % Lymph % (Auto) 1 L (24-44) % [place] % (Auto) 9 H (2-6) % Eos % (Auto) 0 L (2-4) % Baso % (Auto) 0 (0-1) % ESR 16 (0-20) mm/hr Sodium 135 L (140-148) mmol/L Potassium 4.5 (3.6-5.2) mmol/L Chloride 99 L (100-108) mmol/L Carbon Dioxide 23 (21-32) mmol/L Anion Gap 17.5 H (5.0-14.0) mmol/L BUN 17 D (7-18) mg/dL Creatinine 1.5 H (0.8-1.3) mg/dL Est Cr Clr Drug Dosing 45.29 mL/min Estimated GFR (MDRD) 46 L (>60) Glucose 150 H (74-106) mg/dL Uric Acid 4.8 (3.5-7.2) mg/dL Calcium 9.1 (8.5-10.1) mg/dL Total Bilirubin 0.5 (0.2-1.0) mg/dL AST 19 (15-37) U/L ALT 22 (12-78) U/L Alkaline Phosphatase 102 (46-116) U/L C-Reactive Protein 8.10 H (0.0-0.3) mg/dL Total Protein 7.0 (6.4-8.2) g/dL Albumin 3.2 L (3.4-5.0) g/dL Globulin 3.8 H (2.3-3.5) g/dL Albumin/Globulin Ratio 0.8 L (1.2-2.2) Urine Color Urine Appearance Urine pH (4.5-8.0) Ur Specific [place] (1.008-1.030) Urine Protein (NEGATIVE) mg/dL Urine Glucose (UA) (NEGATIVE) mg/dL Urine Ketones (NEGATIVE) mg/dL Urine Occult Blood (NEGATIVE) Urine Nitrite (NEGAITVE) Urine Bilirubin (NEGATIVE) Urine Urobilinogen (NORMAL) mg/dL Ur Leukocyte Esterase (NEGATIVE) Urine RBC (0-5) Urine WBC (0-5) Ur Epithelial Cells Amorphous Sediment Urine Bacteria Urine Mucus 05/28/17 Range/Units 11:39 WBC (4.5-11.0) K/uL RBC (4.30-5.90) M/uL Hgb (12.0-15.0) g/dL Hct (40.0-54.0) % MCV (80-98) fL MCH (27-31) pg MCHC (32-36) % Plt Count (150-400) K/uL Neut % (Auto) (36-66) % Lymph % (Auto) (24-44) % [place] % (Auto) (2-6) % Eos % (Auto) (2-4) % Baso % (Auto) (0-1) % ESR (0-20) mm/hr Sodium (140-148) mmol/L Potassium (3.6-5.2) mmol/L Chloride (100-108) mmol/L Carbon Dioxide (21-32) mmol/L Anion Gap (5.0-14.0) mmol/L BUN (7-18) mg/dL Creatinine (0.8-1.3) mg/dL Est Cr Clr Drug Dosing mL/min Estimated GFR (MDRD) (>60) Glucose (74-106) mg/dL Uric Acid (3.5-7.2) mg/dL Calcium (8.5-10.1) mg/dL Total Bilirubin (0.2-1.0) mg/dL AST (15-37) U/L ALT (12-78) U/L Alkaline Phosphatase (46-116) U/L C-Reactive Protein (0.0-0.3) mg/dL Total Protein (6.4-8.2) g/dL Albumin (3.4-5.0) g/dL Globulin (2.3-3.5) g/dL Albumin/Globulin Ratio (1.2-2.2) Urine Color Yellow Urine Appearance Cloudy Urine pH 5.0 (4.5-8.0) Ur Specific [place] 1.020 (1.008-1.030) Urine Protein Negative (NEGATIVE) mg/dL Urine Glucose (UA) Normal (NEGATIVE) mg/dL Urine Ketones Negative (NEGATIVE) mg/dL Urine Occult Blood Negative (NEGATIVE) Urine Nitrite Negative (NEGAITVE) Urine Bilirubin Small (NEGATIVE) Urine Urobilinogen Normal (NORMAL) mg/dL Ur Leukocyte Esterase Negative (NEGATIVE) Urine RBC 0-5 (0-5) Urine WBC 0-5 (0-5) Ur Epithelial Cells Not seen Amorphous Sediment Not seen Urine Bacteria Not seen Urine Mucus Moderate Meds: Medications Generic Name Dose Route Start Last Admin Trade Name Freq PRN Reason Stop Dose Admin Acetaminophen 650 mg 05/28/17 13:48 Tylenol PO Q4H PRN Pain (Mild 1-3)/fever Albuterol 2.5 mg 05/28/17 13:48 Proventil Neb Soln NEB Q4H PRN Shortness Of Breath/wheezing Amlodipine Besylate 2.5 mg 05/29/17 09:00 Norvasc PO DAILY [facility] Aspirin 81 mg 05/29/17 09:00 Aspirin PO DAILY [facility] Cefepime HCl 1 gm/ Sodium 50 mls @ 100 mls/hr 05/28/17 18:00 Chloride IV Q8H [facility] Sodium Chloride 1,000 mls @ 125 mls/hr 05/28/17 13:48 Normal Saline IV ASDIRECTED [facility] Vancomycin HCl 1.5 gm/ Sodium 250 mls @ 150 mls/hr 05/29/17 01:00 Chloride IV Q12H [facility] Metoprolol Tartrate 25 mg 05/28/17 21:00 Lopressor PO BID [facility] Morphine Sulfate 4 - 8 mg 05/28/17 13:48 05/28/17 14:17 Morphine IVPUSH 4 mg Q2H PRN Administration Pain (severe 7-10) Ondansetron HCl 4 mg 05/28/17 13:48 Zofran Odt PO Q6H PRN Nausea able to take PO Ondansetron HCl 4 mg 05/28/17 13:48 Zofran IV Q6H PRN Nausea/Vomiting Oxycodone HCl 5 - 10 mg 05/28/17 13:48 Oxycodone PO Q4H PRN Pain (moderate 4-6) Senna/Docusate Sodium 1 tab 05/28/17 13:48 Senna Plus PO BID PRN Constipation Discontinued Medications Generic Name Dose Route Start Last Admin Trade Name Freq PRN Reason Stop Dose Admin Hydromorphone HCl 0.5 mg 05/28/17 11:16 05/28/17 11:25 Dilaudid IVPUSH 05/28/17 11:17 0.5 mg ONETIME ONE Administration Sodium Chloride 1,000 mls @ 250 mls/hr 05/28/17 11:15 05/28/17 11:09 Normal Saline IV 250 mls/hr ASDIRECTED [facility] Administration Cefepime HCl 1 gm/ Sodium 50 mls @ 100 mls/hr 05/28/17 11:16 05/28/17 11:37 Chloride IV 05/28/17 11:45 100 mls/hr ONETIME ONE Administration Vancomycin HCl 2 gm/ Sodium 500 mls @ 250 mls/hr 05/28/17 12:30 05/28/17 12: 35 Chloride IV 05/28/17 14:29 250 mls/hr ONETIME ONE Administration Vancomycin HCl 2 gm 05/28/17 15:30 Vancomycin .XX 05/28/17 15:31 ONETIME ONE - Re-Assessments/Exams Free Text/Narrative Re-Assessment/Exam: 05/28/17 11:06 CBC, CMP, sedimentation rate, CRP and blood cultures were obtained. White count has actually risen to 30,000. He is afebrile however. An IV was started and the patient was given normal saline IV at 250 mL an hour. 05/28/17 11:18 Interestingly sedimentation rate returned normal. Discussed his condition with the hospitalist, Dr. Orozco, a uric acid was added and the patient was started on cefepime and vancomycin antibiotics. He was given 0.5 mg of Dilaudid IV and will be assessed for admission. Departure - Departure Time of Disposition: 13:40 Disposition: Admitted As Inpatient 65 Condition: Fair Clinical Impression: Septic arthritis of knee, left Qualifiers: Septic arthritis organism: due to unspecified organism Qualified Code(s): M00.9 - Pyogenic arthritis, unspecified - Discharge Information - My Orders Last 24 Hours: My Active Orders 05/28/17 10:22 Blood Culture x2 Reflex Set [OM.PC] Urgent 05/28/17 10:30 CULTURE BLOOD [BC] Urgent 05/28/17 10:35 CULTURE BLOOD [BC] Urgent - Assessment/Plan Last 24 Hours: My Active Orders 05/28/17 10:22 Blood Culture x2 Reflex Set [OM.PC] Urgent 05/28/17 10:30 CULTURE BLOOD [BC] Urgent 05/28/17 10:35 CULTURE BLOOD [BC] Urgent
[2017-05-28] MEDS ORDERED: Sodium Chloride 0.9% 1,000 ML IV SCH (11:15)
[2017-05-28] MEDS ORDERED: HYDROmorphone 0.5 MG/0.5 ML Syringe IVPUSH ONE (11:16)
[2017-05-28] MEDS ORDERED: Cefepime 1 GM in Sodium Chloride 0.9% 50 ML IV ONE (11:16)
--- NOTE | 2017-05-28 12:27 | PCM.HP ---
H&P History of Present Illness - General Date of Service: 05/28/17 Admit Problem/Dx: Admission Diagnosis/Problem Admission Diagnosis/Problem Septic arthritis Source of Information: Patient, Family, Provider History Limitations: Reports: No Limitations - History of Present Illness Initial Comments - Free Text/Narative: German presents to the emergency room today with left knee pain, redness and swelling. He has had progressive difficulty with the knee since his surgery last spring. He had a knee arthroscopy performed 9 days ago to help further evaluate the pain. No significant abnormalities were identified at that time. Since the arthroscopy he has had an increase in the pain and swelling of the knee which were mild at first but progressed quickly over the past 48 hours or so. He noted bulging of the sites where the arthroscope was introduced and 2 days ago had one of the stitches break loose and a significant release of pink tinged fluid and a couple of blood clots. His knee felt better after that time for a short while but then he had a progression of his achy and throbbing knee pain. This progressed from mild to moderate and now to severe. Pain pills haven' t helped at home. Pain is worse when he is moving around. He is becoming very weak and was unable to get off the couch this morning. He measured a temperature of 100.4 this morning. No complaints of chest pain, shortness of breath, nausea. Bowels have been moving normally. He has noticed some redness around the knee, especially laterally and inferiorly. Workup in the emergency room revealed significant leukocytosis and CRP elevation. There is concern for septic arthritis and he will be admitted to the hospital for further management. Orthopedics has been consult. Left Leg Pain Score (Numeric/FACES): 10 - Related Data Allergies/Adverse Reactions: Allergies Allergy/AdvReac Type Severity Reaction Status Date / Time doxazosin mesylate Allergy Hypertensio Verified 05/28/17 03:02 [From Cardura] n niacin Allergy Other Verified 05/28/17 03:02 paroxetine HCl [From Paxil] Allergy Rash Verified 05/28/17 03:02 rofecoxib [From Vioxx] Allergy Edema Verified 05/28/17 03:02 colestipol AdvReac Muscle Verified 05/28/17 03:02 Aches pravastatin AdvReac Leg Cramps Verified 05/28/17 03:02 simvastatin AdvReac Leg Cramps Verified 05/28/17 03:02 Aenvstb-Sdz-Qmo Reductase AdvReac Muscle Verified 05/28/17 03:02 Inhibitor Aches tamsulosin HCl [From Flomax] AdvReac Hypertensio Verified 05/28/17 03:02 n Home Medications: Home Meds Metoprolol Tartrate [Lopressor] 25 mg PO BID 01/25/14 [History] Nitroglycerin [Nitrostat] 0.4 mg SL ASDIRECTED PRN 01/25/14 [History] amLODIPine Besylate [Norvasc] 2.5 mg PO DAILY 01/25/14 [History] Furosemide [Lasix] 20 mg PO DAILY PRN 05/23/16 [History] Rosuvastatin [Crestor] 5 mg PO MOWEFR 05/23/16 [History] Aspirin 81 mg PO DAILY 01/22/17 [History] Sulfamethoxazole/Trimethoprim [Sulfamethoxazole-Tmp Ds Tablet] 1 tab PO BID [History] Past Medical History HEENT History: Reports: Impaired Vision Cardiovascular History: Reports: Afib, Bypass, High Cholesterol, Hypertension, [place] Gastrointestinal History: Reports: Cholelithiasis, Chronic Diarrhea, Colon Polyp , GERD, Irritable Bowel Syndrome Musculoskeletal History: Reports: Arthritis, Fracture, Other (See Below) Other Musculoskeletal History: R hip pain. s/p L knee Endocrine/Metabolic History: Reports: Obesity/BMI 30+ Hematologic History: Reports: Anemia, Blood Transfusion(s) Oncologic (Cancer) History: Reports: Squamous Cell Carcinoma - Infectious Disease History Infectious Disease History: Reports: Chicken Pox, Mumps - Past Surgical History HEENT Surgical History: Reports: Adenoidectomy, Tonsillectomy Cardiovascular Surgical History: Reports: Coronary Artery Bypass GI Surgical History: Reports: Cholecystectomy, Colonoscopy, EGD, Imnor Fundoplication Musculoskeletal Surgical History: Reports: Knee Replacement Dermatological Surgical History: Reports: Skin Biopsy Social & Family History - Family History Family Medical History: Noncontributory - Tobacco Use Smoking Status *Q: Never Smoker Years of Tobacco use: 48 Packs/Tins Daily: 2 Used Tobacco, but Quit: Yes Month Tobacco Last Used: Second Hand Smoke Exposure: No - Caffeine Use Caffeine Use: Reports: Coffee - Alcohol Use Days Per Week of Alcohol Use: 0 Number of Drinks Per Day: 1 Total Drinks Per Week: 0 - Recreational Drug Use Recreational Drug Use: No H&P Review of Systems - Review of Systems: Review Of Systems: See Below Free Text/Narrative: A complete 12 point review of systems was obtained. Pertinent positives and negatives are noted in the history of present illness. All other systems were reviewed and were negative except as noted. Exam - Exam Exam: See Below - Vital Signs Vital Signs: Last Vital Signs Temp 37.1 C 05/28/17 10:21 Pulse 75 05/28/17 10:21 Resp 20 05/28/17 10:21 BP 148/71 H 05/28/17 10:21 Pulse Ox 94 L 05/28/17 10:21 Weight: 101.605 kg - Exam Quality Assessment: No: Supplemental Oxygen General: Alert, Oriented, Cooperative. No: Mild Distress HEENT: Conjunctiva Clear. No: Mucosa Moist & [place] (dry), Scleral Icterus Neck: Supple, Trachea Midline. No: Lymphadenopathy Lungs: Clear to Auscultation, Normal Respiratory Effort Cardiovascular: Regular Rate, Regular Rhythm. No: Systolic Murmur GI/Abdominal Exam: Normal Bowel Sounds, Soft, Non-Tender, No Distention Extremities: No Pedal Edema, Joint Swelling (left knee), Increased Warmth (left knee), Redness (left knee) Peripheral Pulses: 2+: Dorsalis Pedis (L), Dorsalis Pedis (R) Skin: Warm, Dry, Rash (erythema surrounding all three arthroscopic port sites, medial inferior site has most swelling. ), Petechia (mild inferior to the knee) Neuro Extensive - Mental Status: Alert, Oriented x3, Nl Response to Commands Neuro Extensive - Motor, Sensory, Reflexes: CN II-XII Intact. No: Dysarthria, Abnormal Motor, Tremor Psychiatric: Alert, Normal Affect - Patient Data Lab Results Last 24 hrs: Laboratory Results - last 24 hr 05/28/17 05/28/17 05/28/17 Range/Units 10:30 10:30 11:13 WBC 30.1 H* (4.5-11.0) K/uL RBC 5.46 (4.30-5.90) M/uL Hgb 15.4 H (12.0-15.0) g/dL Hct 46.7 (40.0-54.0) % MCV 86 (80-98) fL MCH 28 (27-31) pg MCHC 33 (32-36) % Plt Count 309 (150-400) K/uL Neut % (Auto) 90 H (36-66) % Lymph % (Auto) 1 L (24-44) % [place] % (Auto) 9 H (2-6) % Eos % (Auto) 0 L (2-4) % Baso % (Auto) 0 (0-1) % ESR 16 (0-20) mm/hr Sodium 135 L (140-148) mmol/L Potassium 4.5 (3.6-5.2) mmol/L Chloride 99 L (100-108) mmol/L Carbon Dioxide 23 (21-32) mmol/L Anion Gap 17.5 H (5.0-14.0) mmol/L BUN 17 D (7-18) mg/dL Creatinine 1.5 H (0.8-1.3) mg/dL Est Cr Clr Drug Dosing 45.29 mL/min Estimated GFR (MDRD) 46 L (>60) Glucose 150 H (74-106) mg/dL Uric Acid 4.8 (3.5-7.2) mg/dL Calcium 9.1 (8.5-10.1) mg/dL Total Bilirubin 0.5 (0.2-1.0) mg/dL AST 19 (15-37) U/L ALT 22 (12-78) U/L Alkaline Phosphatase 102 (46-116) U/L C-Reactive Protein 8.10 H (0.0-0.3) mg/dL Total Protein 7.0 (6.4-8.2) g/dL Albumin 3.2 L (3.4-5.0) g/dL Globulin 3.8 H (2.3-3.5) g/dL Albumin/Globulin Ratio 0.8 L (1.2-2.2) Urine Color Urine Appearance Urine pH (4.5-8.0) Ur Specific [place] (1.008-1.030) Urine Protein (NEGATIVE) mg/dL Urine Glucose (UA) (NEGATIVE) mg/dL Urine Ketones (NEGATIVE) mg/dL Urine Occult Blood (NEGATIVE) Urine Nitrite (NEGAITVE) Urine Bilirubin (NEGATIVE) Urine Urobilinogen (NORMAL) mg/dL Ur Leukocyte Esterase (NEGATIVE) Urine RBC (0-5) Urine WBC (0-5) Ur Epithelial Cells Amorphous Sediment Urine Bacteria Urine Mucus 05/28/17 Range/Units 11:39 WBC (4.5-11.0) K/uL RBC (4.30-5.90) M/uL Hgb (12.0-15.0) g/dL Hct (40.0-54.0) % MCV (80-98) fL MCH (27-31) pg MCHC (32-36) % Plt Count (150-400) K/uL Neut % (Auto) (36-66) % Lymph % (Auto) (24-44) % [place] % (Auto) (2-6) % Eos % (Auto) (2-4) % Baso % (Auto) (0-1) % ESR (0-20) mm/hr Sodium (140-148) mmol/L Potassium (3.6-5.2) mmol/L Chloride (100-108) mmol/L Carbon Dioxide (21-32) mmol/L Anion Gap (5.0-14.0) mmol/L BUN (7-18) mg/dL Creatinine (0.8-1.3) mg/dL Est Cr Clr Drug Dosing mL/min Estimated GFR (MDRD) (>60) Glucose (74-106) mg/dL Uric Acid (3.5-7.2) mg/dL Calcium (8.5-10.1) mg/dL Total Bilirubin (0.2-1.0) mg/dL AST (15-37) U/L ALT (12-78) U/L Alkaline Phosphatase (46-116) U/L C-Reactive Protein (0.0-0.3) mg/dL Total Protein (6.4-8.2) g/dL Albumin (3.4-5.0) g/dL Globulin (2.3-3.5) g/dL Albumin/Globulin Ratio (1.2-2.2) Urine Color Yellow Urine Appearance Cloudy Urine pH 5.0 (4.5-8.0) Ur Specific [place] 1.020 (1.008-1.030) Urine Protein Negative (NEGATIVE) mg/dL Urine Glucose (UA) Normal (NEGATIVE) mg/dL Urine Ketones Negative (NEGATIVE) mg/dL Urine Occult Blood Negative (NEGATIVE) Urine Nitrite Negative (NEGAITVE) Urine Bilirubin Small (NEGATIVE) Urine Urobilinogen Normal (NORMAL) mg/dL Ur Leukocyte Esterase Negative (NEGATIVE) Urine RBC 0-5 (0-5) Urine WBC 0-5 (0-5) Ur Epithelial Cells Not seen Amorphous Sediment Not seen Urine Bacteria Not seen Urine Mucus Moderate Result Diagrams: 05/28/17 10:30 05/28/17 10:30 *Q Meaningful Use (ADM) - VTE *Q VTE Criteria *Q: VTE Pharmacological Contraindications *Q: Patient Scheduled Surgery - VTE Risk Assess *Q Each Risk Factor Represents 1 Point: Minor Surgery Planned, Obesity ( BMI > 25 kg/m2) Total Score 1 Point Risk Factors: 2 Each Risk Factor Represents 2 Points: Age 60 - 74 Years Total Score 2 Point Risk Factors: 2 Each Risk Factor Represents 3 Points: None Total Score 3 Point Risk Factors: 0 Each Risk Factor Represents 5 Points: None Total Score 5 Point Risk Factors: 0 Venous Thromboembolism Risk Factor Score *Q: 4 - Stroke *Q Stroke Criteria *Q: - AMI *Q AMI Criteria *Q: - Problem List (1) Septic arthritis of knee, left SNOMED Code(s): 442575086 ICD Code: M00.9 - PYOGENIC ARTHRITIS, UNSPECIFIED Status: Acute Current Visit: Yes Qualifiers: Septic arthritis organism: due to unspecified organism Qualified Code(s): M00.9 - Pyogenic arthritis, unspecified (2) CKD (chronic kidney disease), stage III SNOMED Code(s): 535548460 ICD Code: N18.3 - CHRONIC KIDNEY DISEASE, STAGE 3 (MODERATE) Status: Chronic Current Visit: Yes (3) CAD (coronary artery disease) SNOMED Code(s): 10397930 ICD Code: I25.10 - ATHSCL HEART DISEASE OF [place] CORONARY ARTERY W/O ANG PCTRS Status: Chronic Current Visit: No Qualifiers: Coronary Disease-Associated Artery/Lesion type: [place] artery [place] vs. transplanted heart: [place] heart Associated angina: without angina Qualified Code(s): I25.10 - Atherosclerotic heart disease of [place] coronary artery without angina pectoris Problem List Initiated/Reviewed/Updated: Yes Orders Last 24hrs: Active Orders 24 hr Category Date Time Status Patient Status Manage Transfer [TRANSFER] Routine ADT 05/28/17 12:14 Ordered CULTURE BLOOD [BC] Urgent Lab 05/28/17 10:30 Received CULTURE BLOOD [BC] Urgent Lab 05/28/17 10:35 Received Sodium Chloride 0.9% [Normal Saline] 1,000 ml Med 05/28/17 11:15 Active IV ASDIRECTED Vancomycin 2 gm Med 05/28/17 12:30 Active Sodium Chloride 0.9% [Normal Saline] 500 ml IV ONETIME Blood Culture x2 Reflex Set [OM.PC] Urgent Oth 05/28/17 10:22 Ordered Resuscitation Status Routine Resus Stat 05/28/17 12:15 Ordered Medication Orders Sodium Chloride (Normal Saline) 1,000 mls @ 250 mls/hr IV ASDIRECTED MACHO Last Admin: 05/28/17 11:09 Dose: 250 mls/hr Vancomycin HCl 2 gm/ Sodium (Chloride) 500 mls @ 250 mls/hr IV ONETIME ONE Stop: 05/28/17 14:29 Assessment/Plan Comment:: ASSESSMENT AND PLAN - Possible septic arthritis of the left knee - low-grade temperature elevation, leukocytosis along with pain, swelling and redness of the left knee. All concerning for infection at this time. Dr. Flores is aware and is planning a washout of the knee later today or first thing tomorrow morning. Broad-spectrum antibiotic coverage has been initiated and blood cultures have been obtained. Pain is fairly well-controlled at this time. -Cefepime and vancomycin -Pain control -Follow-up cultures -Orthopedic consultation and arthroscopic washout later today or tomorrow Coronary artery disease - chronic condition, stable at this time with no active symptoms. Good functional status. -Continue home medications Stage III chronic kidney disease - mild elevation of creatinine from baseline likely secondary to dehydration and infection. Should improve with hydration. -IV fluids -Labs in the morning Maintenance issues - - DVT prophylaxis - mechanical - GI prophylaxis - not indicated - Nutrition - nothing by mouth until timing of surgical intervention is determined - Koenig catheter - not indicated CODE STATUS - full code Admission justification - This patient will be admitted for inpatient services and is medically appropriate meeting medical necessity for inpatient admission as outlined in my documentation. I reasonably expect the patient will require inpatient services that span a period time over 2 midnights. I reasonably expect this patient to be discharged or transferred within 96 hours after admission to the [facility]. Disposition - anticipate discharge to home after the hospital stay Primary care physician - Dr. Luke Orozco M.D.
[2017-05-28] MEDS ORDERED: Vancomycin 2 GM in Sodium Chloride 0.9% 500 ML IV ONE (12:30)
[2017-05-28] MEDS ORDERED: Ondansetron 4 MG/2 ML SDV IV PRN (13:48)
[2017-05-28] MEDS ORDERED: oxyCODONE 5 MG Tab PO PRN (13:48)
[2017-05-28] MEDS ORDERED: Ondansetron 4 MG Tab.DIS PO PRN (13:48)
[2017-05-28] MEDS ORDERED: Albuterol 0.083% 2.5 MG/3 ML Neb Soln NEB PRN (13:48)
[2017-05-28] MEDS: Morphine 4 MG/ML Syringe IVPUSH PRN ×2 (14:03→14:17)
[2017-05-28] MEDS ORDERED: Vancomycin 1 GM SDV ONE (15:30)
--- NOTE | 2017-05-28 16:42 | PCM.CONS ---
H&P History of Present Illness - General Admit Problem/Dx: Admission Diagnosis/Problem Admission Diagnosis/Problem Septic arthritis Source of Information: Patient, Family History Limitations: Reports: No Limitations - History of Present Illness Onset of Symptoms: Reports: Gradual Duration of Symptoms: Reports: Day(s): Location: Reports: Lower Extremity, Left Quality: Reports: Ache, Burning, Dull, Pressure, Throbbing Improves with: Reports: None Worsens with: Reports: Movement Associated Symptoms: Reports: No Other Symptoms Left Leg Pain Score (Numeric/FACES): 10 - Related Data Allergies/Adverse Reactions: Allergies Allergy/AdvReac Type Severity Reaction Status Date / Time doxazosin mesylate Allergy Hypertensio Verified 05/28/17 03:02 [From Cardura] n niacin Allergy Other Verified 05/28/17 03:02 paroxetine HCl [From Paxil] Allergy Rash Verified 05/28/17 03:02 rofecoxib [From Vioxx] Allergy Edema Verified 05/28/17 03:02 colestipol AdvReac Muscle Verified 05/28/17 03:02 Aches pravastatin AdvReac Leg Cramps Verified 05/28/17 03:02 simvastatin AdvReac Leg Cramps Verified 05/28/17 03:02 Ccisrac-Ubz-Qls Reductase AdvReac Muscle Verified 05/28/17 03:02 Inhibitor Aches tamsulosin HCl [From Flomax] AdvReac Hypertensio Verified 05/28/17 03:02 n Home Medications: Home Meds Metoprolol Tartrate [Lopressor] 25 mg PO BID 01/25/14 [History] Nitroglycerin [Nitrostat] 0.4 mg SL ASDIRECTED PRN 01/25/14 [History] amLODIPine Besylate [Norvasc] 2.5 mg PO DAILY 01/25/14 [History] Furosemide [Lasix] 20 mg PO DAILY PRN 05/23/16 [History] Rosuvastatin [Crestor] 5 mg PO MOWEFR 05/23/16 [History] Aspirin 81 mg PO DAILY 01/22/17 [History] Sulfamethoxazole/Trimethoprim [Sulfamethoxazole-Tmp Ds Tablet] 1 tab PO BID [History] Past Medical History HEENT History: Reports: Impaired Vision Cardiovascular History: Reports: Afib, Bypass, High Cholesterol, Hypertension, [place] Gastrointestinal History: Reports: Cholelithiasis, Chronic Diarrhea, Colon Polyp , GERD, Irritable Bowel Syndrome Musculoskeletal History: Reports: Arthritis, Fracture, Other (See Below) Other Musculoskeletal History: R hip pain. s/p L knee Endocrine/Metabolic History: Reports: Obesity/BMI 30+ Hematologic History: Reports: Anemia, Blood Transfusion(s) Oncologic (Cancer) History: Reports: Squamous Cell Carcinoma - Infectious Disease History Infectious Disease History: Reports: Chicken Pox, Mumps - Past Surgical History HEENT Surgical History: Reports: Adenoidectomy, Tonsillectomy Cardiovascular Surgical History: Reports: Coronary Artery Bypass GI Surgical History: Reports: Cholecystectomy, Colonoscopy, EGD, Minor Fundoplication Musculoskeletal Surgical History: Reports: Knee Replacement Dermatological Surgical History: Reports: Skin Biopsy Social & Family History - Family History Family Medical History: Noncontributory - Tobacco Use Smoking Status *Q: Never Smoker Years of Tobacco use: 48 Packs/Tins Daily: 2 Used Tobacco, but Quit: Yes Month Tobacco Last Used: Second Hand Smoke Exposure: No - Caffeine Use Caffeine Use: Reports: Coffee - Alcohol Use Days Per Week of Alcohol Use: 0 Number of Drinks Per Day: 1 Total Drinks Per Week: 0 - Recreational Drug Use Recreational Drug Use: No H&P Review of Systems - Review of Systems: Review Of Systems: See Below General: Reports: No Symptoms HEENT: Reports: No Symptoms Pulmonary: Reports: No Symptoms Cardiovascular: Reports: No Symptoms Gastrointestinal: Reports: No Symptoms Genitourinary: Reports: No Symptoms Musculoskeletal: Reports: Joint Pain, Joint Swelling, Muscle Pain Skin: Reports: No Symptoms Psychiatric: Reports: No Symptoms Neurological: Reports: Difficulty Walking, Gait Disturbance Hematologic/Lymphatic: Reports: No Symptoms Immunologic: Reports: No Symptoms Exam - Exam Exam: See Below - Vital Signs Vital Signs: Last Vital Signs Temp 100.4 F 05/28/17 13:47 Pulse 106 H 05/28/17 13:47 Resp 16 05/28/17 13:47 BP 143/63 H 05/28/17 13:47 Pulse Ox 97 05/28/17 13:47 Weight: 224 lb - Exam General: Alert, Oriented, 4 HEENT: PERRLA, Conjunctiva Clear, EOMI, Hearing Intact, Mucosa Moist & [place], Pupils Equal, Pupils Reactive Neck: Supple, Trachea Midline Lungs: Normal Respiratory Effort Extremities: Joint Swelling, Limited Range of Motion, Increased Warmth, Redness Peripheral Pulses: 2+: Dorsalis Pedis (L) Skin: Dry, Intact, Ecchymosis, Wound, Incision Neurological: Cranial Nerves Intact, Reflexes Equal Bilateral Neuro Extensive - Mental Status: Alert, Oriented x3, Normal Mood/Affect, Normal Cognition Psychiatric: Alert, Normal Affect, Normal Mood - Patient Data Result Diagrams: 05/28/17 10:30 05/28/17 10:30 Alf Results Last 24 hrs: Microbiology 05/28/17 15:25 Gram Stain - Final Knee Fluid - Knee, Left Consult PN Assessment/Plan Procedures: Procedures ASSAY OF CK (CPK) (03/24/17) ASSAY OF NATRIURETIC PEPTIDE (03/24/17) ASSAY OF TROPONIN QUANT (03/24/17) BLOOD TYPING SEROLOGIC ABO (03/24/17) BLOOD TYPING SEROLOGIC RH(D) (03/24/17) BONE IMAGING 3 PHASE (04/22/17) C-REACTIVE PROTEIN (04/23/17) CARDIAC REHAB/MONITOR (12/03/15) CHEST X-RAY 1 VIEW FRONTAL (03/24/17) COLONOSCOPY AND BIOPSY (05/06/17) COMPATIBILITY TEST ANTIGLOB (03/24/17) COMPATIBILITY TEST SPIN (03/24/17) COMPLETE CBC AUTOMATED (05/07/17) COMPLETE CBC W/AUTO DIFF WBC (03/24/17) COMPREHEN METABOLIC PANEL (05/07/17) CT LOWER EXTREMITY W/O DYE (04/21/17) CT THORAX W/O DYE (03/13/16) CULTR BACTERIA EXCEPT BLOOD (04/23/17) CULTURE OTHR SPECIMN AEROBIC (04/23/17) CULTURE SCREEN ONLY (03/24/17) EGD BIOPSY SINGLE/MULTIPLE (12/29/14) EGD DIAGNOSTIC BRUSH WASH (05/06/17) EGD GUIDE WIRE INSERTION (12/29/14) ELECTROCARDIOGRAM TRACING (05/07/17) EMERGENCY DEPT VISIT (03/24/17) EXTREMITY STUDY (12/31/16) GAIT TRAINING THERAPY (11/25/16) HEMOGLOBIN (03/27/17) HOT OR COLD PACKS THERAPY (04/29/17) HYDRATE IV INFUSION ADD-ON (03/24/17) KNEE ARTHROSCOPY/SURGERY (05/19/17) MANUAL THERAPY 1/> REGIONS (04/29/17) MEASURE BLOOD OXYGEN LEVEL (11/25/16) METABOLIC PANEL TOTAL CA (03/24/17) MRI JOINT UPR EXTREM W/O DYE (05/29/16) OCCULT BLD FECES 1-3 TESTS (03/24/17) OFFICE/OUTPATIENT VISIT EST (06/02/16) OFFICE/OUTPATIENT VISIT NEW (05/26/16) OT EVAL LOW COMPLEX 30 MIN (11/25/16) POSTOP FOLLOW-UP VISIT (12/11/16) PT EVAL LOW COMPLEX 20 MIN (04/29/17) PT EVAL MOD COMPLEX 30 MIN (11/25/16) RBC ANTIBODY SCREEN (03/24/17) RBC SED RATE NONAUTOMATED (04/23/17) ROUTINE VENIPUNCTURE (05/07/17) SELF CARE MNGMENT TRAINING (11/25/16) SMEAR GRAM STAIN (04/23/17) THER/PROPH/DIAG INJ IV PUSH (03/24/17) THERAPEUTIC ACTIVITIES (11/25/16) THERAPEUTIC EXERCISES (04/29/17) UPR/L XTREMITY ART 2 LEVELS (01/18/14) URINALYSIS AUTO W/O SCOPE (11/03/16) URINALYSIS AUTO W/SCOPE (03/24/17) US URINE CAPACITY MEASURE (11/25/16) X-RAY EXAM HIP UNI 2-3 VIEWS (03/16/17) X-RAY EXAM OF KNEE 1 OR 2 (04/20/17) X-RAY EXAM OF SHOULDER (05/26/16) (1) Septic arthritis of knee, left SNOMED Code(s): 035600920 Code(s): M00.9 - PYOGENIC ARTHRITIS, UNSPECIFIED Current Visit: Yes Qualifiers: Septic arthritis organism: due to unspecified organism Qualified Code(s): M00.9 - Pyogenic arthritis, unspecified (2) Primary osteoarthritis of left knee SNOMED Code(s): 581631499 Code(s): M17.12 - UNILATERAL PRIMARY OSTEOARTHRITIS, LEFT KNEE Current Visit: No (3) Status post total left knee replacement SNOMED Code(s): 0659899981352 Code(s): Z96.652 - PRESENCE OF LEFT ARTIFICIAL KNEE JOINT Current Visit: No Problem List Initiated/Reviewed/Updated: Yes My Orders Last 24 Hours: My Active Orders 05/28/17 15:15 Verify Patient Consent Obtain [RC] ASDIRECTED 05/28/17 15:25 CULTURE BODY FLUID + SMEAR [RM] Routine 05/28/17 Dinner Nothing per Oral After Midnight Diet [DIET] Regular Diet [DIET] Plan: The patient's called the clinic yesterday afternoon. She stated that the patient did have some discharge out of the knee but it did not have an odor. At that time it was not warm or erythematous. He did not have any constitutional symptoms at that time. Yesterday evening, the patient was seen in the emergency department where he was found to have a white count of 20,000. We are to place him on sulfa's. He was discharged home. We did get a call today from the patient's stating that his knee was red and swollen and that he was unable to ambulate on it. I asked that she bring him in immediately. He was unable to ambulate so a squad was called. He was brought to the emergency department by emergency vehicle. I asked the emergency department physician to obtain preliminary laboratory studies and for the hospitalist admit the patient. Hospitalist is administering appropriate antibiotics. I saw the patient on the floor today. I sterilely prepped his knee and aspirated 90 mL of purulent fluid. After all that could be aspirated was out, I then injected 2 g of vancomycin solution into the knee. I then visited with him proximal an hour and a half later and his pain had significantly dropped. Decreased erythema was present. He had better range of motion. I discussed with the patient is that we will take him to the operating room tomorrow at 10 AM for irrigation and debridement of the left knee. This will be done through an open arthrotomy of both the anterior and posterior compartments. We will wash him out with a copious amount of irrigation, apply Betadine to the wound, and then washout with a new solution from [place]. I explained the process of biofilm and how it is important to eliminate it to the patient's . Patient History Reviewed: Yes Admission H&P Reviewed: Yes Notified Requestor: Yes
--- NOTE | 2017-05-28 16:44 | PCM.PRNOTE ---
- Free Text/Narrative Note: Procedure: Aspiration left knee Preparation: Aseptic technique Aspiration: 90 mL purulent fluid with 18-gauge needle using to 60 mL syringes Anesthesia: Topical solution Patient tolerated procedure well Site: Left knee, lateral superior entry point
[2017-05-28] MEDS: Cefepime 1 GM in Sodium Chloride 0.9% 50 ML IV SCH (18:13)
[2017-05-28] MEDS: Metoprolol Tartrate 25 MG Tab PO SCH (20:58)
[2017-05-28] MEDS: Acetaminophen 325 MG Tab PO PRN (21:05)
[2017-05-28] MEDS: Sodium Chloride 0.9% 1,000 ML IV SCH (21:29)
[2017-05-29] MEDS: Cefepime 1 GM in Sodium Chloride 0.9% 50 ML IV SCH ×3 (02:52→17:35)
[2017-05-29] MEDS: Acetaminophen 325 MG Tab PO PRN ×2 (05:11→16:09)
[2017-05-29] MEDS ORDERED: Aspirin 81 MG Tab.Chew PO SCH (09:00)
[2017-05-29] MEDS: Metoprolol Tartrate 25 MG Tab PO SCH ×2 (09:01→20:24)
[2017-05-29] MEDS: amLODIPine 2.5 MG Tab PO SCH (09:04)
[2017-05-29] MEDS ORDERED: Gentamicin 40 MG/ML 2 ML Vial ONE ×2 (09:21→10:37)
[2017-05-29] MEDS ORDERED: Midazolam 1 MG/ML 2 ML SDV ONE (09:31)
[2017-05-29] MEDS ORDERED: Propofol 200 MG/20 ML SDV ONE (09:31)
[2017-05-29] MEDS ORDERED: fentaNYL 100 MCG/2 ML SDV ONE (09:31)
[2017-05-29] MEDS ORDERED: Povidone-Iodine 10% Soln 118.25 ML Bottle ONE (10:11)
[2017-05-29] MEDS ORDERED: Vancomycin 1 GM SDV ONE ×2 (10:11→11:01)
[2017-05-29] MEDS ORDERED: Lactated Ringers 1,000 ML ONE (10:52)
[2017-05-29] MEDS ORDERED: Ropivacaine 49.25 ML, EPINEPHrine 0.5 MG, cloNIDine 80 MCG, Sodium Chloride 0.9% 49.45 ML INJECT ONE ×4 (11:00)
[2017-05-29] MEDS ORDERED: Ropivacaine 49.25 ML, Ketorolac 30 MG, EPINEPHrine 0.5 MG, cloNIDine 80 MCG, Sodium Chl... INJECT ONE ×5 (11:00)
[2017-05-29] MEDS ORDERED: Bisacodyl 5 MG Tab PO PRN (12:04)
[2017-05-29] MEDS ORDERED: Zolpidem 5 MG Tab PO PRN (12:04)
[2017-05-29] MEDS ORDERED: Aluminum Hydroxide/Magnesium Hydroxide/Simethicone Susp 30 ML Cup PO PRN (12:04)
[2017-05-29] MEDS ORDERED: diphenhydrAMINE 50 MG/ML SDV IVPUSH PRN (12:04)
[2017-05-29] MEDS ORDERED: Naloxone 0.4 MG/ML SDV IVPUSH PRN (12:04)
[2017-05-29] MEDS ORDERED: Ondansetron 4 MG/2 ML SDV IVPUSH PRN (12:04)
[2017-05-29] MEDS ORDERED: Morphine 2 MG/ML Syringe IVPUSH PRN (12:04)
[2017-05-29] MEDS ORDERED: Magnesium Hydroxide 400 MG/5 ML Susp 30 ML Cup PO PRN (12:04)
[2017-05-29] MEDS ORDERED: Ketorolac 30 MG/ML SDV IVPUSH PRN (12:04)
[2017-05-29] MEDS ORDERED: Sennosides 8.6 MG Tab PO PRN (12:04)
[2017-05-29] MEDS ORDERED: Meperidine PF 25 MG/ML Syringe IM ONE (12:16)
[2017-05-29] MEDS ORDERED: Diazepam 5 MG Tab PO PRN (12:21)
--- NOTE | 2017-05-29 12:25 | OR ---
DATE OF PROCEDURE: 05/29/2017 PREOPERATIVE DIAGNOSIS: Left knee total knee arthroplasty infection. POSTOPERATIVE DIAGNOSIS: Left knee total knee arthroplasty infection. PROCEDURES: 1. Arthrotomy with synovectomy of anterior and posterior compartments. 2. Irrigation and debridement of left knee. 3. Polyethylene exchange of 12 mm polyethylene tibia. SP[employer] PL[employer] ASSEMBLER: FRAN Ruvalcaba. ANESTHESIA: Spinal plus conscious sedation. FLUID: Lactated Ringer solution. ESTIMATED BLOOD LOSS: 100 mL. COMPLICATIONS: None. SPECIMEN: None. DISCHARGE DISPOSITION: Stable to PACU. INDICATIONS: The patient had a knee arthroscopy almost 2 weeks ago. Yesterday , his knee became hot and swollen. He was brought by squad to the ER. He was admitted to the hospitalist service. I then performed an aspiration 90 mL of purulent exudate and sent this for cultures. I then injected 20 mL with 2 g of vancomycin solution into the knee. He was placed on antibiotics preoperatively by the hospitalist service. Risks and benefits of the procedure were explained to the patient's . Informed consent was obtained. DETAILS OF PROCEDURE: The patient was seen preoperatively by myself and the Anesthesia staff in his hospital room. He was brought to the operative suite by the anesthesia staff where general anesthesia was administered. A well-padded tourniquet was placed on the left lower extremity but it was not inflated during the case. The left lower extremity was then prepped and draped in sterile manner. Time-out was called identifying the correct patient, correct procedure, the correct site, and antibiotics had begun within appropriate period of time. A midline incision was made through the previous incision and carried down to deep fascia. I did carefully elevated some scar for subcutaneous closure. I then went through the previous medial parapatellar arthrotomy. Abundant copious purulent fluid came out of the inferior aspect of the wound. We then irrigated with approximately 1 L of saline, but not with pulse lavage to prevent any bacteria from being driven further into the soft tissues. I then irrigated with the remaining 2 L with pulse lavage and then another 3 L with pulse lavage after removing the polyethylene. After the 1st bit of purulent fluid came out, I did the procedure for irrigation. I changed my sheets and then after we finished 6 L total, I then used Betadine solution and soaked it inside the joint for 5 minutes and let it sit there. I took a sponge and soaked the sponge to make sure we got on all the soft tissues. Please note that I had also rongeured and curetted some soft tissue as well as we removed some soft tissue with Bovie electrocautery. After the Betadine had been allowed to set, we irrigated another liter with pulse lavage. We then changed our gloves, cleaned off, although we could apply another Ioban, I took iodine and ran it over our hoses. We switched our Yankauer suction and I applied iodine over the handles of my pulse lavage, 5.0 Aquamantys unit, and Bovie electrocautery unit. I made sure the field was clean as possible. I then irrigated with 2 L of Bactisure from [place], which was specially meant for removing any biofilm and then followed by the remaining 2 L of pulse lavage irrigation. Irrigation was 240 mg of gentamicin per 3 liter bag. After this had been accomplished, we suctioned out and used a lap to remove any excess fluid. I then inserted a new 12-mm polyethylene tibial insert. This provided excellent stability. We then closed with two #5 Ethibond sutures after I put approximately 1.5 g of vancomycin powder into the joint followed by #2 Stratafix, followed by 3-0 Stratafix in the subcutaneous layer followed by skin blanca, followed by an Aquacel dressing. The patient was then allowed to awaken from conscious sedation and transferred to his hospital bed and taken to the PACU in stable condition. Robin Flores DO /[id number]
[2017-05-29] MEDS ORDERED: Acetaminophen 1,000 MG in Premix Bag 1 BAG IV ONE (12:30)
--- NOTE | 2017-05-29 13:46 | PCM.PN ---
- General Info Date of Service: 05/29/17 Functional Status: Reports: Pain Controlled - Review of Systems General: Reports: Weakness Musculoskeletal: Reports: Joint Pain, Joint Swelling Systems Review Comment:: No acute events overnight. Knee pain has been fairly well-controlled. He did have an aspiration of the joint performed last night and purulent material was obtained and sent for culture. He also had the joint injected with vancomycin. He went to the operating room for a knee washout today and the procedure was uneventful. In the immediate postoperative period he did have some ectopy and trigeminy but this has settled down after coming upstairs following his time in the PACU. He does not complain of shortness of breath, chest pain or palpitations. He feels tired but otherwise feels fairly well. - Patient Data Vitals - Most Recent: Last Vital Signs Temp 35.9 C 05/29/17 13:00 Pulse 76 05/29/17 13:00 Resp 18 05/29/17 13:00 BP 116/40 L 05/29/17 13:00 Pulse Ox 96 05/29/17 13:00 Weight - Most Recent: 101.605 kg I&O - Last 24 Hours: Intake & Output 05/28/17 05/29/17 05/29/17 22:59 06:59 14:59 Intake Total 1024 50 Output Total 700 450 150 Balance -700 574 -100 Lab Results Last 24 Hours: Laboratory Results - last 24 hr 05/29/17 05/29/17 Range/Units 05:25 05:25 WBC 19.8 H (4.5-11.0) K/uL RBC 4.74 (4.30-5.90) M/uL Hgb 13.3 D (12.0-15.0) g/dL Hct 41.0 (40.0-54.0) % MCV 87 (80-98) fL MCH 28 (27-31) pg MCHC 32 (32-36) % Plt Count 249 (150-400) K/uL Sodium 136 L (140-148) mmol/L Potassium 4.2 (3.6-5.2) mmol/L Chloride 104 (100-108) mmol/L Carbon Dioxide 23 (21-32) mmol/L Anion Gap 13.2 (5.0-14.0) mmol/L BUN 15 (7-18) mg/dL Creatinine 1.2 (0.8-1.3) mg/dL Est Cr Clr Drug Dosing 56.61 mL/min Estimated GFR (MDRD) 59 L (>60) Glucose 103 (74-106) mg/dL Calcium 8.7 (8.5-10.1) mg/dL Alf Results Last 24 Hours: Microbiology 05/28/17 15:25 Gram Stain - Final Knee Fluid - Knee, Left Body Fluid Culture - Preliminary Med Orders - Current: Current Medications Acetaminophen (Tylenol) 650 mg PO Q4H PRN PRN Reason: Pain (Mild 1-3)/fever Last Admin: 05/29/17 05:11 Dose: 650 mg Al Hydroxide/Mg Hydroxide (Mag-Al Plus) 30 ml PO Q4H PRN PRN Reason: Constipation Albuterol (Proventil Neb Soln) 2.5 mg NEB Q4H PRN PRN Reason: Shortness Of Breath/wheezing Amlodipine Besylate (Norvasc) 2.5 mg PO DAILY [facility] Last Admin: 05/29/17 09:04 Dose: 2.5 mg Aspirin (Ecotrin) 325 mg PO DAILY [facility] Bisacodyl (Dulcolax) 10 mg PO DAILY PRN PRN Reason: Constipation Diazepam (Valium.) 5 mg PO Q6H PRN PRN Reason: Spasms Diphenhydramine HCl (Benadryl) 25 mg IVPUSH Q4H PRN PRN Reason: Itching Docusate Sodium (Colace) 100 mg PO BID [facility] Cefepime HCl 1 gm/ Sodium (Chloride) 50 mls @ 100 mls/hr IV Q8H [facility] Last Admin: 05/29/17 09:23 Dose: 100 mls/hr Sodium Chloride (Normal Saline) 1,000 mls @ 125 mls/hr IV ASDIRECTED [facility] Last Admin: 05/28/17 21:29 Dose: 125 mls/hr Vancomycin HCl 1.5 gm/ Sodium (Chloride) 250 mls @ 150 mls/hr IV Q12H [facility] Last Admin: 05/29/17 01:37 Dose: 150 mls/hr Magnesium Hydroxide (Milk Of Magnesia) 30 ml PO BID PRN PRN Reason: Constipation Metoprolol Tartrate (Lopressor) 25 mg PO BID [facility] Last Admin: 05/29/17 09:01 Dose: 25 mg Morphine Sulfate (Morphine) 2 mg IVPUSH Q2H PRN PRN Reason: Pain Naloxone HCl (Narcan) 0.1 mg IVPUSH ONETIME PRN PRN Reason: Oversedation Stop: 05/29/17 23:00 Ondansetron HCl (Zofran) 8 mg IVPUSH Q4H PRN PRN Reason: Nausea/Vomiting Oxycodone HCl (Oxycodone) 10 mg PO Q4H PRN PRN Reason: Pain Stop: 05/30/17 12:04 Oxycodone/Acetaminophen (Percocet 325-5 Mg) 2 tab PO Q4H PRN PRN Reason: Pain Senna (Senna) 8.6 mg PO BID PRN PRN Reason: Constipation Sodium Chloride (Saline Flush) 10 ml FLUSH DAILY [facility] Tramadol HCl (Ultram) 100 mg PO Q6H PRN PRN Reason: Pain Zolpidem Tartrate (Ambien) 5 mg PO BEDTIME PRN PRN Reason: Sleep Discontinued Medications Aspirin (Aspirin) 81 mg PO DAILY [facility] Last Admin: 05/29/17 09:04 Dose: Not Given Ropivacaine 49.25 ml/Epinephrine HCl 0.5 mg/Clonidine HCl 80 mcg/ Sodium Chloride 49.45 ml 0 ml INJECT ONETIME ONE Stop: 05/29/17 11:01 Fentanyl (Sublimaze) Confirm Administered Dose 100 mcg .ROUTE .STK-MED ONE Stop: 05/29/17 09:32 Gentamicin Sulfate (Gentamicin) Confirm Administered Dose 240 mg .ROUTE .STK- MED ONE Stop: 05/29/17 09:22 Last Admin: 05/29/17 11:15 Dose: 240 mg Gentamicin Sulfate (Gentamicin) Confirm Administered Dose 480 mg .ROUTE .STK- MED ONE Stop: 05/29/17 10:38 Last Admin: 05/29/17 11:15 Dose: 480 mg Hydromorphone HCl (Dilaudid) 0.5 mg IVPUSH ONETIME ONE Stop: 05/28/17 11:17 Last Admin: 05/28/17 11:25 Dose: 0.5 mg Sodium Chloride (Normal Saline) 1,000 mls @ 250 mls/hr IV ASDIRECTED [facility] Last Admin: 05/28/17 11:09 Dose: 250 mls/hr Cefepime HCl 1 gm/ Sodium (Chloride) 50 mls @ 100 mls/hr IV ONETIME ONE Stop: 05/28/17 11:45 Last Admin: 05/28/17 11:37 Dose: 100 mls/hr Vancomycin HCl 2 gm/ Sodium (Chloride) 500 mls @ 250 mls/hr IV ONETIME ONE Stop: 05/28/17 14:29 Last Admin: 05/28/17 12:35 Dose: 250 mls/hr Lactated Ringer's (Ringers, Lactated) Confirm Administered Dose 1,000 mls @ as directed .ROUTE .STK-MED ONE Stop: 05/29/17 10:53 Acetaminophen 1,000 mg/ Premix 100 mls @ 400 mls/hr IV NOW ONE Stop: 05/29/17 12:44 Last Admin: 05/29/17 12:39 Dose: 400 mls/hr Meperidine HCl (Demerol) 25 mg IM ONETIME ONE Stop: 05/29/17 12:17 Last Admin: 05/29/17 12:21 Dose: 25 mg Midazolam HCl (Versed 1 Mg/Ml) Confirm Administered Dose 2 mg .ROUTE .STK-MED ONE Stop: 05/29/17 09:32 Morphine Sulfate (Morphine) 4 - 8 mg IVPUSH Q2H PRN PRN Reason: Pain (severe 7-10) Last Admin: 05/28/17 14:17 Dose: 4 mg Ondansetron HCl (Zofran Odt) 4 mg PO Q6H PRN PRN Reason: Nausea able to take PO Ondansetron HCl (Zofran) 4 mg IV Q6H PRN PRN Reason: Nausea/Vomiting Oxycodone HCl (Oxycodone) 5 - 10 mg PO Q4H PRN PRN Reason: Pain (moderate 4-6) Last Admin: 05/29/17 05:11 Dose: 5 mg Povidone Iodine (Betadine 10% Soln) Confirm Administered Dose 1 ml .ROUTE .STK- MED ONE Stop: 05/29/17 10:12 Propofol (Diprivan 20 Ml) Confirm Administered Dose 200 mg .ROUTE .STK-MED ONE Stop: 05/29/17 09:32 Senna/Docusate Sodium (Senna Plus) 1 tab PO BID PRN PRN Reason: Constipation Vancomycin HCl (Vancomycin) 2 gm .XX ONETIME ONE Stop: 05/28/17 15:31 Last Admin: 05/28/17 15:00 Dose: 2 gm Vancomycin HCl (Vancomycin) Confirm Administered Dose 1 gm .ROUTE .STK-MED ONE Stop: 05/29/17 10:12 Last Admin: 05/29/17 11:20 Dose: 1 gm Vancomycin HCl (Vancomycin) Confirm Administered Dose 1 gm .ROUTE .STK-MED ONE Stop: 05/29/17 11:02 Last Admin: 05/29/17 11:20 Dose: 1 gm - Exam Quality Assessment: No: Supplemental Oxygen General: Alert, Oriented, Cooperative, No Acute Distress Neck: Supple Lungs: Clear to Auscultation, Normal Respiratory Effort Cardiovascular: Regular Rate, No Murmurs, Irregular Rhythm Extremities: No Pedal Edema, Increased Warmth (left knee) Skin: Warm, Dry, Rash (faint petechia left proximal tibia ) Psy/Mental Status: Alert, Normal Affect - Problem List & Annotations (1) Septic arthritis of knee, left SNOMED Code(s): 798444653 Code(s): M00.9 - PYOGENIC ARTHRITIS, UNSPECIFIED Status: Acute Current Visit: Yes Qualifiers: Septic arthritis organism: due to unspecified organism Qualified Code(s): M00.9 - Pyogenic arthritis, unspecified (2) CKD (chronic kidney disease), stage III SNOMED Code(s): 211004270 Code(s): N18.3 - CHRONIC KIDNEY DISEASE, STAGE 3 (MODERATE) Status: Chronic Current Visit: Yes (3) CAD (coronary artery disease) SNOMED Code(s): 83320652 Code(s): I25.10 - ATHSCL HEART DISEASE OF [place] CORONARY ARTERY W/O ANG PCTRS Status: Chronic Current Visit: No Qualifiers: Coronary Disease-Associated Artery/Lesion type: [place] artery [place] vs. transplanted heart: [place] heart Associated angina: without angina Qualified Code(s): I25.10 - Atherosclerotic heart disease of [place] coronary artery without angina pectoris - Problem List Review Problem List Initiated/Reviewed/Updated: Yes - My Orders Last 24 Hours: My Active Orders 05/28/17 13:48 Patient Status [ADT] Routine Bedrest Bedside Commode [RC] ASDIRECTED Intake and Output [RC] QSHIFT Notify Provider Consults [RC] ASDIRECTED Notify Provider Vital Signs [RC] ASDIRECTED Oxygen Therapy [RC] PRN RT Aerosol Therapy [RC] ASDIRECTED Up With Assistance [RC] ASDIRECTED VTE/DVT Education [RC] Per Unit Routine Vital Signs [RC] Q4H Consult to Physician [CONS] Routine Acetaminophen [Tylenol] 650 mg PO Q4H PRN Albuterol [Proventil Neb Soln] 2.5 mg NEB Q4H PRN Sodium Chloride 0.9% [Normal Saline] 1,000 ml IV ASDIRECTED Antiembolic Hose [OM.PC] Per Unit Routine 05/28/17 18:00 Cefepime [Maxipime] 1 gm Sodium Chloride 0.9% [Normal Saline] 50 ml IV Q8H 05/29/17 01:00 Vancomycin 1.5 gm Sodium Chloride 0.9% [Normal Saline] 250 ml IV Q12H - Plan Plan:: ASSESSMENT AND PLAN - Septic arthritis of the left knee - culture from knee aspirate is growing gram- positive cocci. 2 of the 4 blood cultures are growing gram-positive cocci. Tolerating current antibiotics. No evidence for sepsis at this time. -Cefepime and vancomycin -Pain control -Follow-up cultures -Orthopedic consultation appreciated Coronary artery disease - chronic condition, stable at this time with no active symptoms. Good functional status. He did have some mild ectopy today but no active symptoms. -Continue home medications Stage III chronic kidney disease - creatinine a little better today. -Gentle IV fluids -Labs in the morning Maintenance issues - - DVT prophylaxis - mechanical - GI prophylaxis - not indicated -Advanced diet as tolerated postoperatively Disposition - anticipate discharge to home after the hospital stay Steven Orozco M.D.
[2017-05-29] MEDS: Sodium Chloride 0.9% 1,000 ML IV SCH (15:02)
--- NOTE | 2017-05-29 15:34 | CR ---
Portable chest The right-sided PICC line descends down into the SVC. The tip is located at the junction with the rig ht atrium. No complications evident. Impression: 1. Successful PICC line placement.
[2017-05-29] MEDS: oxyCODONE 5 MG Tab PO PRN (16:10)
[2017-05-29] MEDS: traMADol 50 MG Tab PO PRN (17:44)
[2017-05-29] MEDS: Docusate Sodium 100 MG Cap PO SCH (20:24)
[2017-05-30] MEDS: Acetaminophen 325 MG Tab PO PRN (00:11)
[2017-05-30] MEDS: oxyCODONE 5 MG Tab PO PRN (00:12)
[2017-05-30] MEDS: Sodium Chloride 0.9% 1,000 ML IV SCH (03:01)
[2017-05-30] MEDS: Cefepime 1 GM in Sodium Chloride 0.9% 50 ML IV SCH ×2 (03:03→09:37)
[2017-05-30] MEDS: Acetaminophen/oxyCODONE 325-5 MG Tab PO PRN ×3 (08:00→19:56)
[2017-05-30] MEDS: Aspirin 325 MG Tab.EC PO SCH (08:25)
[2017-05-30] MEDS: Docusate Sodium 100 MG Cap PO SCH ×2 (08:25→21:21)
[2017-05-30] MEDS: amLODIPine 2.5 MG Tab PO SCH (08:25)
[2017-05-30] MEDS: Metoprolol Tartrate 25 MG Tab PO SCH ×3 (08:25→22:30)
[2017-05-30] MEDS: Sodium Chloride 0.9% 10 ML Syringe FLUSH SCH (09:38)
[2017-05-30] MEDS ORDERED: Acetaminophen/oxyCODONE 325-5 MG Tab PO PRN (12:04)
--- NOTE | 2017-05-30 12:22 | PCM.PN ---
- General Info Date of Service: 05/30/17 Functional Status: Reports: Pain Controlled, Tolerating Diet, Ambulating - Review of Systems General: Denies: Fever Musculoskeletal: Reports: Joint Pain (left knee) Systems Review Comment:: No acute events overnight. No fevers. White blood cell count is trending down. Left knee pain is better today the swelling seems to be down. He did have some drainage from the surgical wound last night and the dressing was changed and reinforced. No significant difficulty since that time. He was up and walking around physical therapy. Culture from the left knee aspirate is growing MSSA. Intermittent PACs and PVCs but otherwise his cardiac status has been stable. - Patient Data Vitals - Most Recent: Last Vital Signs Temp 37.5 C 05/30/17 07:00 Pulse 67 05/30/17 08:25 Resp 18 05/30/17 07:00 BP 132/70 05/30/17 08:25 Pulse Ox 94 L 05/30/17 07:20 Weight - Most Recent: 101.605 kg I&O - Last 24 Hours: Intake & Output 05/29/17 05/30/17 05/30/17 22:59 06:59 14:59 Intake Total 1570 1400 410 Output Total 375 800 700 Balance 1195 600 -290 Lab Results Last 24 Hours: Laboratory Results - last 24 hr 05/30/17 05/30/17 Range/Units 05:27 05:27 WBC 14.1 H (4.5-11.0) K/uL RBC 4.15 L (4.30-5.90) M/uL Hgb 11.5 L (12.0-15.0) g/dL Hct 36.5 L (40.0-54.0) % MCV 88 (80-98) fL MCH 28 (27-31) pg MCHC 32 (32-36) % Plt Count 226 (150-400) K/uL Neut % (Auto) 83 H (36-66) % Lymph % (Auto) 7 L (24-44) % Jerome % (Auto) 9 H (2-6) % Eos % (Auto) 1 L (2-4) % Baso % (Auto) 0 (0-1) % Sodium 136 L (140-148) mmol/L Potassium 4.1 (3.6-5.2) mmol/L Chloride 105 (100-108) mmol/L Carbon Dioxide 23 (21-32) mmol/L Anion Gap 12.1 (5.0-14.0) mmol/L BUN 14 (7-18) mg/dL Creatinine 1.1 (0.8-1.3) mg/dL Est Cr Clr Drug Dosing 61.76 mL/min Estimated GFR (MDRD) > 60 (>60) Glucose 93 (74-106) mg/dL Calcium 8.3 L (8.5-10.1) mg/dL Total Bilirubin 0.4 (0.2-1.0) mg/dL AST 14 L (15-37) U/L ALT 15 (12-78) U/L Alkaline Phosphatase 65 (46-116) U/L Total Protein 5.3 L (6.4-8.2) g/dL Albumin 2.1 L (3.4-5.0) g/dL Globulin 3.2 (2.3-3.5) g/dL Albumin/Globulin Ratio 0.7 L (1.2-2.2) Alf Results Last 24 Hours: Microbiology 05/28/17 15:25 Gram Stain - Final Knee Fluid - Knee, Left Body Fluid Culture - Final Staphylococcus Aureus Med Orders - Current: Current Medications Acetaminophen (Tylenol) 650 mg PO Q4H PRN PRN Reason: Pain (Mild 1-3)/fever Last Admin: 05/30/17 00:11 Dose: 650 mg Al Hydroxide/Mg Hydroxide (Mag-Al Plus) 30 ml PO Q4H PRN PRN Reason: Constipation Albuterol (Proventil Neb Soln) 2.5 mg NEB Q4H PRN PRN Reason: Shortness Of Breath/wheezing Amlodipine Besylate (Norvasc) 2.5 mg PO DAILY [facility] Last Admin: 05/30/17 08:25 Dose: 2.5 mg Aspirin (Ecotrin) 325 mg PO DAILY [facility] Last Admin: 05/30/17 08:25 Dose: 325 mg Bisacodyl (Dulcolax) 10 mg PO DAILY PRN PRN Reason: Constipation Diazepam (Valium.) 5 mg PO Q6H PRN PRN Reason: Spasms Diphenhydramine HCl (Benadryl) 25 mg IVPUSH Q4H PRN PRN Reason: Itching Docusate Sodium (Colace) 100 mg PO BID [facility] Last Admin: 05/30/17 08:25 Dose: 100 mg Magnesium Hydroxide (Milk Of Magnesia) 30 ml PO BID PRN PRN Reason: Constipation Metoprolol Tartrate (Lopressor) 25 mg PO BID [facility] Last Admin: 05/30/17 08:25 Dose: 25 mg Morphine Sulfate (Morphine) 2 mg IVPUSH Q2H PRN PRN Reason: Pain Ondansetron HCl (Zofran) 8 mg IVPUSH Q4H PRN PRN Reason: Nausea/Vomiting Oxycodone/Acetaminophen (Percocet 325-5 Mg) 2 tab PO Q4H PRN PRN Reason: PAIN Last Admin: 05/30/17 08:00 Dose: 2 tab Senna (Senna) 8.6 mg PO BID PRN PRN Reason: Constipation Sodium Chloride (Saline Flush) 10 ml FLUSH DAILY [facility] Last Admin: 05/30/17 09:38 Dose: 10 ml Tramadol HCl (Ultram) 100 mg PO Q6H PRN PRN Reason: Pain Last Admin: 05/29/17 17:44 Dose: 100 mg Zolpidem Tartrate (Ambien) 5 mg PO BEDTIME PRN PRN Reason: Sleep Discontinued Medications Aspirin (Aspirin) 81 mg PO DAILY [facility] Last Admin: 05/29/17 09:04 Dose: Not Given Ropivacaine 49.25 ml/Epinephrine HCl 0.5 mg/Clonidine HCl 80 mcg/ Sodium Chloride 49.45 ml 0 ml INJECT ONETIME ONE Stop: 05/29/17 11:01 Fentanyl (Sublimaze) Confirm Administered Dose 100 mcg .ROUTE .STK-MED ONE Stop: 05/29/17 09:32 Gentamicin Sulfate (Gentamicin) Confirm Administered Dose 240 mg .ROUTE .STK- MED ONE Stop: 05/29/17 09:22 Last Admin: 05/29/17 11:15 Dose: 240 mg Gentamicin Sulfate (Gentamicin) Confirm Administered Dose 480 mg .ROUTE .STK- MED ONE Stop: 05/29/17 10:38 Last Admin: 05/29/17 11:15 Dose: 480 mg Hydromorphone HCl (Dilaudid) 0.5 mg IVPUSH ONETIME ONE Stop: 05/28/17 11:17 Last Admin: 05/28/17 11:25 Dose: 0.5 mg Sodium Chloride (Normal Saline) 1,000 mls @ 250 mls/hr IV ASDIRECTED [facility] Last Admin: 05/28/17 11:09 Dose: 250 mls/hr Cefepime HCl 1 gm/ Sodium (Chloride) 50 mls @ 100 mls/hr IV ONETIME ONE Stop: 05/28/17 11:45 Last Admin: 05/28/17 11:37 Dose: 100 mls/hr Vancomycin HCl 2 gm/ Sodium (Chloride) 500 mls @ 250 mls/hr IV ONETIME ONE Stop: 05/28/17 14:29 Last Admin: 05/28/17 12:35 Dose: 250 mls/hr Cefepime HCl 1 gm/ Sodium (Chloride) 50 mls @ 100 mls/hr IV Q8H [facility] Last Admin: 05/30/17 09:37 Dose: 100 mls/hr Sodium Chloride (Normal Saline) 1,000 mls @ 125 mls/hr IV ASDIRECTED [facility] Last Admin: 05/30/17 03:01 Dose: 125 mls/hr Vancomycin HCl 1.5 gm/ Sodium (Chloride) 250 mls @ 150 mls/hr IV Q12H [facility] Last Admin: 05/30/17 00:11 Dose: 150 mls/hr Lactated Ringer's (Ringers, Lactated) Confirm Administered Dose 1,000 mls @ as directed .ROUTE .STK-MED ONE Stop: 05/29/17 10:53 Acetaminophen 1,000 mg/ Premix 100 mls @ 400 mls/hr IV NOW ONE Stop: 05/29/17 12:44 Last Admin: 05/29/17 12:39 Dose: 400 mls/hr Meperidine HCl (Demerol) 25 mg IM ONETIME ONE Stop: 05/29/17 12:17 Last Admin: 05/29/17 12:21 Dose: 25 mg Midazolam HCl (Versed 1 Mg/Ml) Confirm Administered Dose 2 mg .ROUTE .STK-MED ONE Stop: 05/29/17 09:32 Morphine Sulfate (Morphine) 4 - 8 mg IVPUSH Q2H PRN PRN Reason: Pain (severe 7-10) Last Admin: 05/28/17 14:17 Dose: 4 mg Naloxone HCl (Narcan) 0.1 mg IVPUSH ONETIME PRN PRN Reason: Oversedation Stop: 05/29/17 23:00 Ondansetron HCl (Zofran Odt) 4 mg PO Q6H PRN PRN Reason: Nausea able to take PO Ondansetron HCl (Zofran) 4 mg IV Q6H PRN PRN Reason: Nausea/Vomiting Oxycodone HCl (Oxycodone) 5 - 10 mg PO Q4H PRN PRN Reason: Pain (moderate 4-6) Last Admin: 05/29/17 05:11 Dose: 5 mg Oxycodone HCl (Oxycodone) 10 mg PO Q4H PRN PRN Reason: Pain Stop: 05/30/17 12:04 Last Admin: 05/30/17 00:12 Dose: 10 mg Povidone Iodine (Betadine 10% Soln) Confirm Administered Dose 1 ml .ROUTE .STK- MED ONE Stop: 05/29/17 10:12 Propofol (Diprivan 20 Ml) Confirm Administered Dose 200 mg .ROUTE .STK-MED ONE Stop: 05/29/17 09:32 Senna/Docusate Sodium (Senna Plus) 1 tab PO BID PRN PRN Reason: Constipation Vancomycin HCl (Vancomycin) 2 gm .XX ONETIME ONE Stop: 05/28/17 15:31 Last Admin: 05/28/17 15:00 Dose: 2 gm Vancomycin HCl (Vancomycin) Confirm Administered Dose 1 gm .ROUTE .STK-MED ONE Stop: 05/29/17 10:12 Last Admin: 05/29/17 11:20 Dose: 1 gm Vancomycin HCl (Vancomycin) Confirm Administered Dose 1 gm .ROUTE .STK-MED ONE Stop: 05/29/17 11:02 Last Admin: 05/29/17 11:20 Dose: 1 gm - Exam Quality Assessment: No: Supplemental Oxygen General: Alert, Oriented, Cooperative, No Acute Distress Neck: Supple Lungs: Normal Respiratory Effort GI/Abdominal Exam: Soft, No Distention Extremities: Pedal Edema (mild ankle edema on the left), Other (left knee wrapped in HARI which is dry and intact ) Skin: Warm, Dry Psy/Mental Status: Alert, Normal Affect - Problem List & Annotations (1) Septic arthritis of knee, left SNOMED Code(s): 932316721 Code(s): M00.9 - PYOGENIC ARTHRITIS, UNSPECIFIED Status: Acute Current Visit: Yes Qualifiers: Septic arthritis organism: due to unspecified organism Qualified Code(s): M00.9 - Pyogenic arthritis, unspecified (2) CKD (chronic kidney disease), stage III SNOMED Code(s): 000111423 Code(s): N18.3 - CHRONIC KIDNEY DISEASE, STAGE 3 (MODERATE) Status: Chronic Current Visit: Yes (3) CAD (coronary artery disease) SNOMED Code(s): 02356846 Code(s): I25.10 - ATHSCL HEART DISEASE OF [place] CORONARY ARTERY W/O ANG PCTRS Status: Chronic Current Visit: No Qualifiers: Coronary Disease-Associated Artery/Lesion type: [place] artery [place] vs. transplanted heart: [place] heart Associated angina: without angina Qualified Code(s): I25.10 - Atherosclerotic heart disease of [place] coronary artery without angina pectoris - Problem List Review Problem List Initiated/Reviewed/Updated: Yes - My Orders Last 24 Hours: My Active Orders 05/30/17 14:00 ceFAZolin [Ancef] 2 gm Sodium Chloride 0.9% [Normal Saline] 50 ml IV Q8HR 05/31/17 05:00 BASIC METABOLIC PANEL,BMP [CHEM] Timed CBC W/O DIFF,HEMOGRAM [HEME] Timed (1) - Plan Plan:: ASSESSMENT AND PLAN - Septic arthritis of the left knee - culture from knee aspirate is growing MSSA. Pain is improving. White blood cell count trending down. Not having any fevers. Blood cultures are still pending but preliminary review suggests staph aureus as well. -Transition antibiotics to cefazolin -Pain control -Follow-up blood cultures -Orthopedic consultation appreciated Coronary artery disease - chronic condition, stable at this time with no active symptoms. Still some ectopy but no active cardiac symptoms. -Continue home medications Stage III chronic kidney disease - creatinine at baseline. -Saline lock IV -Labs in the morning Maintenance issues - - DVT prophylaxis - mechanical - GI prophylaxis - not indicated - Regular diet Disposition - anticipate discharge to home with home antibiotics after the hospital stay Steven Orozco M.D.
[2017-05-30] MEDS: ceFAZolin 2 GM in Sodium Chloride 0.9% 50 ML IV SCH ×2 (14:18→21:21)
[2017-05-31] MEDS: ceFAZolin 2 GM in Sodium Chloride 0.9% 50 ML IV SCH ×3 (05:58→22:14)
[2017-05-31] MEDS: Acetaminophen/oxyCODONE 325-5 MG Tab PO PRN ×2 (06:05→11:20)
[2017-05-31] MEDS: Metoprolol Tartrate 25 MG Tab PO SCH ×2 (08:05→20:20)
[2017-05-31] MEDS: Aspirin 325 MG Tab.EC PO SCH (08:06)
[2017-05-31] MEDS: Docusate Sodium 100 MG Cap PO SCH ×2 (08:06→20:20)
[2017-05-31] MEDS: amLODIPine 2.5 MG Tab PO SCH (08:06)
[2017-05-31] MEDS: Sodium Chloride 0.9% 10 ML Syringe FLUSH SCH ×3 (08:11→13:51)
--- NOTE | 2017-05-31 10:59 | PCM.PN ---
- General Info Date of Service: 05/30/17 Admission Dx/Problem (Free Text): POD 1 of a left knee washing. He is doing well. His dressing has minimal drainage. His pain is under control with oral pain medication. Functional Status: Reports: Pain Controlled, Tolerating Diet, Ambulating, Urinating - Patient Data Vitals - Most Recent: Last Vital Signs Temp 36.7 C 05/31/17 07:00 Pulse 89 05/31/17 08:05 Resp 18 05/31/17 07:00 BP 128/64 05/31/17 08:06 Pulse Ox 93 L 05/31/17 07:00 Weight - Most Recent: 224 lb I&O - Last 24 Hours: Intake & Output 05/30/17 05/31/17 05/31/17 22:59 06:59 14:59 Output Total 325 800 100 Balance -325 -800 -100 Lab Results Last 24 Hours: Laboratory Results - last 24 hr 05/31/17 05/31/17 Range/Units 05:50 05:50 WBC 10.8 (4.5-11.0) K/uL RBC 4.24 L (4.30-5.90) M/uL Hgb 11.7 L (12.0-15.0) g/dL Hct 36.7 L (40.0-54.0) % MCV 87 (80-98) fL MCH 28 (27-31) pg MCHC 32 (32-36) % Plt Count 239 (150-400) K/uL Sodium 137 L (140-148) mmol/L Potassium 3.9 (3.6-5.2) mmol/L Chloride 105 (100-108) mmol/L Carbon Dioxide 24 (21-32) mmol/L Anion Gap 11.9 (5.0-14.0) mmol/L BUN 13 (7-18) mg/dL Creatinine 1.0 (0.8-1.3) mg/dL Est Cr Clr Drug Dosing 67.93 mL/min Estimated GFR (MDRD) > 60 (>60) Glucose 96 (74-106) mg/dL Calcium 8.8 (8.5-10.1) mg/dL Alf Results Last 24 Hours: Microbiology 05/28/17 15:25 Gram Stain - Final Knee Fluid - Knee, Left Body Fluid Culture - Final Staphylococcus Aureus Med Orders - Current: Current Medications Acetaminophen (Tylenol) 650 mg PO Q4H PRN PRN Reason: Pain (Mild 1-3)/fever Last Admin: 05/30/17 00:11 Dose: 650 mg Al Hydroxide/Mg Hydroxide (Mag-Al Plus) 30 ml PO Q4H PRN PRN Reason: Constipation Albuterol (Proventil Neb Soln) 2.5 mg NEB Q4H PRN PRN Reason: Shortness Of Breath/wheezing Amlodipine Besylate (Norvasc) 2.5 mg PO DAILY [facility] Last Admin: 05/31/17 08:06 Dose: 2.5 mg Aspirin (Ecotrin) 325 mg PO DAILY [facility] Last Admin: 05/31/17 08:06 Dose: 325 mg Bisacodyl (Dulcolax) 10 mg PO DAILY PRN PRN Reason: Constipation Diazepam (Valium.) 5 mg PO Q6H PRN PRN Reason: Spasms Diphenhydramine HCl (Benadryl) 25 mg IVPUSH Q4H PRN PRN Reason: Itching Docusate Sodium (Colace) 100 mg PO BID [facility] Last Admin: 05/31/17 08:06 Dose: 100 mg Heparin Sodium (Porcine) (Heparin Lock Flush 100 Units/Ml) 500 units FLUSH ASDIRECTED PRN PRN Reason: Other Last Admin: 05/30/17 16:56 Dose: 500 units Cefazolin Sodium 2 gm/ Sodium (Chloride) 50 mls @ 100 mls/hr IV Q8HR [facility] Last Admin: 05/31/17 05:58 Dose: 100 mls/hr Magnesium Hydroxide (Milk Of Magnesia) 30 ml PO BID PRN PRN Reason: Constipation Metoprolol Tartrate (Lopressor) 25 mg PO BID [facility] Last Admin: 05/31/17 08:05 Dose: 25 mg Morphine Sulfate (Morphine) 2 mg IVPUSH Q2H PRN PRN Reason: Pain Ondansetron HCl (Zofran) 8 mg IVPUSH Q4H PRN PRN Reason: Nausea/Vomiting Oxycodone/Acetaminophen (Percocet 325-5 Mg) 2 tab PO Q4H PRN PRN Reason: PAIN Last Admin: 05/31/17 06:05 Dose: 2 tab Senna (Senna) 8.6 mg PO BID PRN PRN Reason: Constipation Sodium Chloride (Saline Flush) 10 ml FLUSH DAILY [facility] Last Admin: 05/31/17 08:11 Dose: 10 ml Tramadol HCl (Ultram) 100 mg PO Q6H PRN PRN Reason: Pain Last Admin: 05/29/17 17:44 Dose: 100 mg Zolpidem Tartrate (Ambien) 5 mg PO BEDTIME PRN PRN Reason: Sleep Discontinued Medications Aspirin (Aspirin) 81 mg PO DAILY [facility] Last Admin: 05/29/17 09:04 Dose: Not Given Ropivacaine 49.25 ml/Epinephrine HCl 0.5 mg/Clonidine HCl 80 mcg/ Sodium Chloride 49.45 ml 0 ml INJECT ONETIME ONE Stop: 05/29/17 11:01 Fentanyl (Sublimaze) Confirm Administered Dose 100 mcg .ROUTE .STK-MED ONE Stop: 05/29/17 09:32 Gentamicin Sulfate (Gentamicin) Confirm Administered Dose 240 mg .ROUTE .STK- MED ONE Stop: 05/29/17 09:22 Last Admin: 05/29/17 11:15 Dose: 240 mg Gentamicin Sulfate (Gentamicin) Confirm Administered Dose 480 mg .ROUTE .STK- MED ONE Stop: 05/29/17 10:38 Last Admin: 05/29/17 11:15 Dose: 480 mg Heparin Sodium (Porcine) (Heparin Lock Flush 100 Units/Ml) Confirm Administered Dose 500 units .ROUTE .STK-MED ONE Stop: 05/30/17 16:45 Last Admin: 05/30/17 16:55 Dose: Not Given Hydromorphone HCl (Dilaudid) 0.5 mg IVPUSH ONETIME ONE Stop: 05/28/17 11:17 Last Admin: 05/28/17 11:25 Dose: 0.5 mg Sodium Chloride (Normal Saline) 1,000 mls @ 250 mls/hr IV ASDIRECTED [facility] Last Admin: 05/28/17 11:09 Dose: 250 mls/hr Cefepime HCl 1 gm/ Sodium (Chloride) 50 mls @ 100 mls/hr IV ONETIME ONE Stop: 05/28/17 11:45 Last Admin: 05/28/17 11:37 Dose: 100 mls/hr Vancomycin HCl 2 gm/ Sodium (Chloride) 500 mls @ 250 mls/hr IV ONETIME ONE Stop: 05/28/17 14:29 Last Admin: 05/28/17 12:35 Dose: 250 mls/hr Cefepime HCl 1 gm/ Sodium (Chloride) 50 mls @ 100 mls/hr IV Q8H [facility] Last Admin: 05/30/17 09:37 Dose: 100 mls/hr Sodium Chloride (Normal Saline) 1,000 mls @ 125 mls/hr IV ASDIRECTED [facility] Last Admin: 05/30/17 03:01 Dose: 125 mls/hr Vancomycin HCl 1.5 gm/ Sodium (Chloride) 250 mls @ 150 mls/hr IV Q12H [facility] Last Admin: 05/30/17 00:11 Dose: 150 mls/hr Lactated Ringer's (Ringers, Lactated) Confirm Administered Dose 1,000 mls @ as directed .ROUTE .STK-MED ONE Stop: 05/29/17 10:53 Acetaminophen 1,000 mg/ Premix 100 mls @ 400 mls/hr IV NOW ONE Stop: 05/29/17 12:44 Last Admin: 05/29/17 12:39 Dose: 400 mls/hr Meperidine HCl (Demerol) 25 mg IM ONETIME ONE Stop: 05/29/17 12:17 Last Admin: 05/29/17 12:21 Dose: 25 mg Midazolam HCl (Versed 1 Mg/Ml) Confirm Administered Dose 2 mg .ROUTE .STK-MED ONE Stop: 05/29/17 09:32 Morphine Sulfate (Morphine) 4 - 8 mg IVPUSH Q2H PRN PRN Reason: Pain (severe 7-10) Last Admin: 05/28/17 14:17 Dose: 4 mg Naloxone HCl (Narcan) 0.1 mg IVPUSH ONETIME PRN PRN Reason: Oversedation Stop: 05/29/17 23:00 Ondansetron HCl (Zofran Odt) 4 mg PO Q6H PRN PRN Reason: Nausea able to take PO Ondansetron HCl (Zofran) 4 mg IV Q6H PRN PRN Reason: Nausea/Vomiting Oxycodone HCl (Oxycodone) 5 - 10 mg PO Q4H PRN PRN Reason: Pain (moderate 4-6) Last Admin: 05/29/17 05:11 Dose: 5 mg Oxycodone HCl (Oxycodone) 10 mg PO Q4H PRN PRN Reason: Pain Stop: 05/30/17 12:04 Last Admin: 05/30/17 00:12 Dose: 10 mg Povidone Iodine (Betadine 10% Soln) Confirm Administered Dose 1 ml .ROUTE .STK- MED ONE Stop: 05/29/17 10:12 Propofol (Diprivan 20 Ml) Confirm Administered Dose 200 mg .ROUTE .STK-MED ONE Stop: 05/29/17 09:32 Senna/Docusate Sodium (Senna Plus) 1 tab PO BID PRN PRN Reason: Constipation Vancomycin HCl (Vancomycin) 2 gm .XX ONETIME ONE Stop: 05/28/17 15:31 Last Admin: 05/28/17 15:00 Dose: 2 gm Vancomycin HCl (Vancomycin) Confirm Administered Dose 1 gm .ROUTE .STK-MED ONE Stop: 05/29/17 10:12 Last Admin: 05/29/17 11:20 Dose: 1 gm Vancomycin HCl (Vancomycin) Confirm Administered Dose 1 gm .ROUTE .STK-MED ONE Stop: 05/29/17 11:02 Last Admin: 05/29/17 11:20 Dose: 1 gm - Exam General: Alert, Oriented Extremities: Normal Inspection, Normal Range of Motion, Pedal Edema, Joint Swelling Peripheral Pulses: 2+: Dorsalis Pedis (L), Dorsalis Pedis (R) Skin: Warm, Dry, Intact Wound/Incisions: Healing Well, Dressing Dry and Intact Neurological: No New Focal Deficit Psy/Mental Status: Alert, Normal Affect, Normal Mood - Problem List Review Problem List Initiated/Reviewed/Updated: Yes - Plan Plan:: ASSESSMENT AND PLAN - Septic arthritis of the left knee - Patient is doing well. He is to continue on oral pain medication. He needs to continue working with PT for strengthening. Dr. Orozco with address cultures and adjust antibiotics as needed.
--- NOTE | 2017-05-31 11:01 | PCM.PN ---
- General Info Date of Service: 05/31/17 Admission Dx/Problem (Free Text): Patient is doing well. He is POD 2 of a left knee wash out. His pain is under control. He is ambulating well. He is hoping to go home tomorrow. Functional Status: Reports: Pain Controlled, Tolerating Diet, Ambulating, Urinating - Review of Systems General: Reports: No Symptoms Musculoskeletal: Reports: Joint Pain Skin: Reports: No Symptoms Neurological: Reports: No Symptoms Psychiatric: Reports: No Symptoms - Patient Data Vitals - Most Recent: Last Vital Signs Temp 36.7 C 05/31/17 07:00 Pulse 89 05/31/17 08:05 Resp 18 05/31/17 07:00 BP 128/64 05/31/17 08:06 Pulse Ox 93 L 05/31/17 07:00 Weight - Most Recent: 224 lb I&O - Last 24 Hours: Intake & Output 05/30/17 05/31/17 05/31/17 22:59 06:59 14:59 Output Total 325 800 100 Balance -325 -800 -100 Lab Results Last 24 Hours: Laboratory Results - last 24 hr 05/31/17 05/31/17 Range/Units 05:50 05:50 WBC 10.8 (4.5-11.0) K/uL RBC 4.24 L (4.30-5.90) M/uL Hgb 11.7 L (12.0-15.0) g/dL Hct 36.7 L (40.0-54.0) % MCV 87 (80-98) fL MCH 28 (27-31) pg MCHC 32 (32-36) % Plt Count 239 (150-400) K/uL Sodium 137 L (140-148) mmol/L Potassium 3.9 (3.6-5.2) mmol/L Chloride 105 (100-108) mmol/L Carbon Dioxide 24 (21-32) mmol/L Anion Gap 11.9 (5.0-14.0) mmol/L BUN 13 (7-18) mg/dL Creatinine 1.0 (0.8-1.3) mg/dL Est Cr Clr Drug Dosing 67.93 mL/min Estimated GFR (MDRD) > 60 (>60) Glucose 96 (74-106) mg/dL Calcium 8.8 (8.5-10.1) mg/dL Med Orders - Current: Current Medications Acetaminophen (Tylenol) 650 mg PO Q4H PRN PRN Reason: Pain (Mild 1-3)/fever Last Admin: 05/30/17 00:11 Dose: 650 mg Al Hydroxide/Mg Hydroxide (Mag-Al Plus) 30 ml PO Q4H PRN PRN Reason: Constipation Albuterol (Proventil Neb Soln) 2.5 mg NEB Q4H PRN PRN Reason: Shortness Of Breath/wheezing Amlodipine Besylate (Norvasc) 2.5 mg PO DAILY [facility] Last Admin: 05/31/17 08:06 Dose: 2.5 mg Aspirin (Ecotrin) 325 mg PO DAILY [facility] Last Admin: 05/31/17 08:06 Dose: 325 mg Bisacodyl (Dulcolax) 10 mg PO DAILY PRN PRN Reason: Constipation Diazepam (Valium.) 5 mg PO Q6H PRN PRN Reason: Spasms Diphenhydramine HCl (Benadryl) 25 mg IVPUSH Q4H PRN PRN Reason: Itching Docusate Sodium (Colace) 100 mg PO BID [facility] Last Admin: 05/31/17 08:06 Dose: 100 mg Heparin Sodium (Porcine) (Heparin Lock Flush 100 Units/Ml) 500 units FLUSH ASDIRECTED PRN PRN Reason: Other Last Admin: 05/30/17 16:56 Dose: 500 units Cefazolin Sodium 2 gm/ Sodium (Chloride) 50 mls @ 100 mls/hr IV Q8HR [facility] Last Admin: 05/31/17 05:58 Dose: 100 mls/hr Magnesium Hydroxide (Milk Of Magnesia) 30 ml PO BID PRN PRN Reason: Constipation Metoprolol Tartrate (Lopressor) 25 mg PO BID [facility] Last Admin: 05/31/17 08:05 Dose: 25 mg Morphine Sulfate (Morphine) 2 mg IVPUSH Q2H PRN PRN Reason: Pain Ondansetron HCl (Zofran) 8 mg IVPUSH Q4H PRN PRN Reason: Nausea/Vomiting Oxycodone/Acetaminophen (Percocet 325-5 Mg) 2 tab PO Q4H PRN PRN Reason: PAIN Last Admin: 05/31/17 06:05 Dose: 2 tab Senna (Senna) 8.6 mg PO BID PRN PRN Reason: Constipation Sodium Chloride (Saline Flush) 10 ml FLUSH DAILY [facility] Last Admin: 05/31/17 08:11 Dose: 10 ml Tramadol HCl (Ultram) 100 mg PO Q6H PRN PRN Reason: Pain Last Admin: 05/29/17 17:44 Dose: 100 mg Zolpidem Tartrate (Ambien) 5 mg PO BEDTIME PRN PRN Reason: Sleep Discontinued Medications Aspirin (Aspirin) 81 mg PO DAILY [facility] Last Admin: 05/29/17 09:04 Dose: Not Given Ropivacaine 49.25 ml/Epinephrine HCl 0.5 mg/Clonidine HCl 80 mcg/ Sodium Chloride 49.45 ml 0 ml INJECT ONETIME ONE Stop: 05/29/17 11:01 Fentanyl (Sublimaze) Confirm Administered Dose 100 mcg .ROUTE .STK-MED ONE Stop: 05/29/17 09:32 Gentamicin Sulfate (Gentamicin) Confirm Administered Dose 240 mg .ROUTE .STK- MED ONE Stop: 05/29/17 09:22 Last Admin: 05/29/17 11:15 Dose: 240 mg Gentamicin Sulfate (Gentamicin) Confirm Administered Dose 480 mg .ROUTE .STK- MED ONE Stop: 05/29/17 10:38 Last Admin: 05/29/17 11:15 Dose: 480 mg Heparin Sodium (Porcine) (Heparin Lock Flush 100 Units/Ml) Confirm Administered Dose 500 units .ROUTE .STK-MED ONE Stop: 05/30/17 16:45 Last Admin: 05/30/17 16:55 Dose: Not Given Hydromorphone HCl (Dilaudid) 0.5 mg IVPUSH ONETIME ONE Stop: 05/28/17 11:17 Last Admin: 05/28/17 11:25 Dose: 0.5 mg Sodium Chloride (Normal Saline) 1,000 mls @ 250 mls/hr IV ASDIRECTED [facility] Last Admin: 05/28/17 11:09 Dose: 250 mls/hr Cefepime HCl 1 gm/ Sodium (Chloride) 50 mls @ 100 mls/hr IV ONETIME ONE Stop: 05/28/17 11:45 Last Admin: 05/28/17 11:37 Dose: 100 mls/hr Vancomycin HCl 2 gm/ Sodium (Chloride) 500 mls @ 250 mls/hr IV ONETIME ONE Stop: 05/28/17 14:29 Last Admin: 05/28/17 12:35 Dose: 250 mls/hr Cefepime HCl 1 gm/ Sodium (Chloride) 50 mls @ 100 mls/hr IV Q8H [facility] Last Admin: 05/30/17 09:37 Dose: 100 mls/hr Sodium Chloride (Normal Saline) 1,000 mls @ 125 mls/hr IV ASDIRECTED [facility] Last Admin: 05/30/17 03:01 Dose: 125 mls/hr Vancomycin HCl 1.5 gm/ Sodium (Chloride) 250 mls @ 150 mls/hr IV Q12H [facility] Last Admin: 05/30/17 00:11 Dose: 150 mls/hr Lactated Ringer's (Ringers, Lactated) Confirm Administered Dose 1,000 mls @ as directed .ROUTE .STK-MED ONE Stop: 05/29/17 10:53 Acetaminophen 1,000 mg/ Premix 100 mls @ 400 mls/hr IV NOW ONE Stop: 05/29/17 12:44 Last Admin: 05/29/17 12:39 Dose: 400 mls/hr Meperidine HCl (Demerol) 25 mg IM ONETIME ONE Stop: 05/29/17 12:17 Last Admin: 05/29/17 12:21 Dose: 25 mg Midazolam HCl (Versed 1 Mg/Ml) Confirm Administered Dose 2 mg .ROUTE .STK-MED ONE Stop: 05/29/17 09:32 Morphine Sulfate (Morphine) 4 - 8 mg IVPUSH Q2H PRN PRN Reason: Pain (severe 7-10) Last Admin: 05/28/17 14:17 Dose: 4 mg Naloxone HCl (Narcan) 0.1 mg IVPUSH ONETIME PRN PRN Reason: Oversedation Stop: 05/29/17 23:00 Ondansetron HCl (Zofran Odt) 4 mg PO Q6H PRN PRN Reason: Nausea able to take PO Ondansetron HCl (Zofran) 4 mg IV Q6H PRN PRN Reason: Nausea/Vomiting Oxycodone HCl (Oxycodone) 5 - 10 mg PO Q4H PRN PRN Reason: Pain (moderate 4-6) Last Admin: 05/29/17 05:11 Dose: 5 mg Oxycodone HCl (Oxycodone) 10 mg PO Q4H PRN PRN Reason: Pain Stop: 05/30/17 12:04 Last Admin: 05/30/17 00:12 Dose: 10 mg Povidone Iodine (Betadine 10% Soln) Confirm Administered Dose 1 ml .ROUTE .STK- MED ONE Stop: 05/29/17 10:12 Propofol (Diprivan 20 Ml) Confirm Administered Dose 200 mg .ROUTE .STK-MED ONE Stop: 05/29/17 09:32 Senna/Docusate Sodium (Senna Plus) 1 tab PO BID PRN PRN Reason: Constipation Vancomycin HCl (Vancomycin) 2 gm .XX ONETIME ONE Stop: 05/28/17 15:31 Last Admin: 05/28/17 15:00 Dose: 2 gm Vancomycin HCl (Vancomycin) Confirm Administered Dose 1 gm .ROUTE .STK-MED ONE Stop: 05/29/17 10:12 Last Admin: 05/29/17 11:20 Dose: 1 gm Vancomycin HCl (Vancomycin) Confirm Administered Dose 1 gm .ROUTE .STK-MED ONE Stop: 05/29/17 11:02 Last Admin: 05/29/17 11:20 Dose: 1 gm - Exam General: Alert, Oriented Extremities: Normal Inspection, Normal Capillary Refill, Pedal Edema, Joint Swelling, Limited Range of Motion (due to recent surgery) Peripheral Pulses: 2+: Dorsalis Pedis (L), Dorsalis Pedis (R) Skin: Warm, Dry, Intact Wound/Incisions: Healing Well Neurological: No New Focal Deficit Psy/Mental Status: Alert - Problem List Review Problem List Initiated/Reviewed/Updated: Yes - Plan Plan:: ASSESSMENT AND PLAN - Septic arthritis of the left knee - Patient is doing well. He is to continue on oral pain medication. He needs to continue working with PT for strengthening. Dr. Orozco with address cultures and adjust antibiotics as needed. We will plan to dc tomorrow with op antibiotics.
--- NOTE | 2017-05-31 12:15 | PCM.PN ---
- General Info Date of Service: 05/31/17 Functional Status: Reports: Pain Controlled, Tolerating Diet, Ambulating - Review of Systems General: Denies: Fever Musculoskeletal: Reports: Joint Pain (left knee) Systems Review Comment:: no acute events overnight. The patient has been well-controlled. He has not had any fevers. White blood cell count continues to trend down even after transitioned to cefazolin. No complaints of chest pain or shortness of breath. - Patient Data Vitals - Most Recent: Last Vital Signs Temp 37.0 C 05/31/17 11:22 Pulse 75 05/31/17 11:22 Resp 18 05/31/17 11:22 BP 131/69 05/31/17 11:22 Pulse Ox 96 05/31/17 11:22 Weight - Most Recent: 101.605 kg I&O - Last 24 Hours: Intake & Output 05/30/17 05/31/17 05/31/17 22:59 06:59 14:59 Output Total 325 800 100 Balance -325 -800 -100 Lab Results Last 24 Hours: Laboratory Results - last 24 hr 05/31/17 05/31/17 Range/Units 05:50 05:50 WBC 10.8 (4.5-11.0) K/uL RBC 4.24 L (4.30-5.90) M/uL Hgb 11.7 L (12.0-15.0) g/dL Hct 36.7 L (40.0-54.0) % MCV 87 (80-98) fL MCH 28 (27-31) pg MCHC 32 (32-36) % Plt Count 239 (150-400) K/uL Sodium 137 L (140-148) mmol/L Potassium 3.9 (3.6-5.2) mmol/L Chloride 105 (100-108) mmol/L Carbon Dioxide 24 (21-32) mmol/L Anion Gap 11.9 (5.0-14.0) mmol/L BUN 13 (7-18) mg/dL Creatinine 1.0 (0.8-1.3) mg/dL Est Cr Clr Drug Dosing 67.93 mL/min Estimated GFR (MDRD) > 60 (>60) Glucose 96 (74-106) mg/dL Calcium 8.8 (8.5-10.1) mg/dL Med Orders - Current: Current Medications Acetaminophen (Tylenol) 650 mg PO Q4H PRN PRN Reason: Pain (Mild 1-3)/fever Last Admin: 05/30/17 00:11 Dose: 650 mg Al Hydroxide/Mg Hydroxide (Mag-Al Plus) 30 ml PO Q4H PRN PRN Reason: Constipation Albuterol (Proventil Neb Soln) 2.5 mg NEB Q4H PRN PRN Reason: Shortness Of Breath/wheezing Amlodipine Besylate (Norvasc) 2.5 mg PO DAILY [facility] Last Admin: 05/31/17 08:06 Dose: 2.5 mg Aspirin (Ecotrin) 325 mg PO DAILY [facility] Last Admin: 05/31/17 08:06 Dose: 325 mg Bisacodyl (Dulcolax) 10 mg PO DAILY PRN PRN Reason: Constipation Diazepam (Valium.) 5 mg PO Q6H PRN PRN Reason: Spasms Diphenhydramine HCl (Benadryl) 25 mg IVPUSH Q4H PRN PRN Reason: Itching Docusate Sodium (Colace) 100 mg PO BID [facility] Last Admin: 05/31/17 08:06 Dose: 100 mg Heparin Sodium (Porcine) (Heparin Lock Flush 100 Units/Ml) 500 units FLUSH ASDIRECTED PRN PRN Reason: Other Last Admin: 05/30/17 16:56 Dose: 500 units Cefazolin Sodium 2 gm/ Sodium (Chloride) 50 mls @ 100 mls/hr IV Q8HR [facility] Last Admin: 05/31/17 05:58 Dose: 100 mls/hr Magnesium Hydroxide (Milk Of Magnesia) 30 ml PO BID PRN PRN Reason: Constipation Metoprolol Tartrate (Lopressor) 25 mg PO BID [facility] Last Admin: 05/31/17 08:05 Dose: 25 mg Morphine Sulfate (Morphine) 2 mg IVPUSH Q2H PRN PRN Reason: Pain Ondansetron HCl (Zofran) 8 mg IVPUSH Q4H PRN PRN Reason: Nausea/Vomiting Oxycodone/Acetaminophen (Percocet 325-5 Mg) 2 tab PO Q4H PRN PRN Reason: PAIN Last Admin: 05/31/17 11:20 Dose: 2 tab Senna (Senna) 8.6 mg PO BID PRN PRN Reason: Constipation Sodium Chloride (Saline Flush) 10 ml FLUSH DAILY [facility] Last Admin: 05/31/17 08:11 Dose: 10 ml Tramadol HCl (Ultram) 100 mg PO Q6H PRN PRN Reason: Pain Last Admin: 05/29/17 17:44 Dose: 100 mg Zolpidem Tartrate (Ambien) 5 mg PO BEDTIME PRN PRN Reason: Sleep Discontinued Medications Aspirin (Aspirin) 81 mg PO DAILY [facility] Last Admin: 05/29/17 09:04 Dose: Not Given Ropivacaine 49.25 ml/Epinephrine HCl 0.5 mg/Clonidine HCl 80 mcg/ Sodium Chloride 49.45 ml 0 ml INJECT ONETIME ONE Stop: 05/29/17 11:01 Fentanyl (Sublimaze) Confirm Administered Dose 100 mcg .ROUTE .STK-MED ONE Stop: 05/29/17 09:32 Gentamicin Sulfate (Gentamicin) Confirm Administered Dose 240 mg .ROUTE .STK- MED ONE Stop: 05/29/17 09:22 Last Admin: 05/29/17 11:15 Dose: 240 mg Gentamicin Sulfate (Gentamicin) Confirm Administered Dose 480 mg .ROUTE .STK- MED ONE Stop: 05/29/17 10:38 Last Admin: 05/29/17 11:15 Dose: 480 mg Heparin Sodium (Porcine) (Heparin Lock Flush 100 Units/Ml) Confirm Administered Dose 500 units .ROUTE .STK-MED ONE Stop: 05/30/17 16:45 Last Admin: 05/30/17 16:55 Dose: Not Given Hydromorphone HCl (Dilaudid) 0.5 mg IVPUSH ONETIME ONE Stop: 05/28/17 11:17 Last Admin: 05/28/17 11:25 Dose: 0.5 mg Sodium Chloride (Normal Saline) 1,000 mls @ 250 mls/hr IV ASDIRECTED [facility] Last Admin: 05/28/17 11:09 Dose: 250 mls/hr Cefepime HCl 1 gm/ Sodium (Chloride) 50 mls @ 100 mls/hr IV ONETIME ONE Stop: 05/28/17 11:45 Last Admin: 05/28/17 11:37 Dose: 100 mls/hr Vancomycin HCl 2 gm/ Sodium (Chloride) 500 mls @ 250 mls/hr IV ONETIME ONE Stop: 05/28/17 14:29 Last Admin: 05/28/17 12:35 Dose: 250 mls/hr Cefepime HCl 1 gm/ Sodium (Chloride) 50 mls @ 100 mls/hr IV Q8H [facility] Last Admin: 05/30/17 09:37 Dose: 100 mls/hr Sodium Chloride (Normal Saline) 1,000 mls @ 125 mls/hr IV ASDIRECTED [facility] Last Admin: 05/30/17 03:01 Dose: 125 mls/hr Vancomycin HCl 1.5 gm/ Sodium (Chloride) 250 mls @ 150 mls/hr IV Q12H [facility] Last Admin: 05/30/17 00:11 Dose: 150 mls/hr Lactated Ringer's (Ringers, Lactated) Confirm Administered Dose 1,000 mls @ as directed .ROUTE .STK-MED ONE Stop: 05/29/17 10:53 Acetaminophen 1,000 mg/ Premix 100 mls @ 400 mls/hr IV NOW ONE Stop: 05/29/17 12:44 Last Admin: 05/29/17 12:39 Dose: 400 mls/hr Meperidine HCl (Demerol) 25 mg IM ONETIME ONE Stop: 05/29/17 12:17 Last Admin: 05/29/17 12:21 Dose: 25 mg Midazolam HCl (Versed 1 Mg/Ml) Confirm Administered Dose 2 mg .ROUTE .STK-MED ONE Stop: 05/29/17 09:32 Morphine Sulfate (Morphine) 4 - 8 mg IVPUSH Q2H PRN PRN Reason: Pain (severe 7-10) Last Admin: 05/28/17 14:17 Dose: 4 mg Naloxone HCl (Narcan) 0.1 mg IVPUSH ONETIME PRN PRN Reason: Oversedation Stop: 05/29/17 23:00 Ondansetron HCl (Zofran Odt) 4 mg PO Q6H PRN PRN Reason: Nausea able to take PO Ondansetron HCl (Zofran) 4 mg IV Q6H PRN PRN Reason: Nausea/Vomiting Oxycodone HCl (Oxycodone) 5 - 10 mg PO Q4H PRN PRN Reason: Pain (moderate 4-6) Last Admin: 05/29/17 05:11 Dose: 5 mg Oxycodone HCl (Oxycodone) 10 mg PO Q4H PRN PRN Reason: Pain Stop: 05/30/17 12:04 Last Admin: 05/30/17 00:12 Dose: 10 mg Povidone Iodine (Betadine 10% Soln) Confirm Administered Dose 1 ml .ROUTE .STK- MED ONE Stop: 05/29/17 10:12 Propofol (Diprivan 20 Ml) Confirm Administered Dose 200 mg .ROUTE .STK-MED ONE Stop: 05/29/17 09:32 Senna/Docusate Sodium (Senna Plus) 1 tab PO BID PRN PRN Reason: Constipation Vancomycin HCl (Vancomycin) 2 gm .XX ONETIME ONE Stop: 05/28/17 15:31 Last Admin: 05/28/17 15:00 Dose: 2 gm Vancomycin HCl (Vancomycin) Confirm Administered Dose 1 gm .ROUTE .STK-MED ONE Stop: 05/29/17 10:12 Last Admin: 05/29/17 11:20 Dose: 1 gm Vancomycin HCl (Vancomycin) Confirm Administered Dose 1 gm .ROUTE .STK-MED ONE Stop: 05/29/17 11:02 Last Admin: 05/29/17 11:20 Dose: 1 gm - Exam Quality Assessment: No: Supplemental Oxygen General: Alert, Oriented, Cooperative, No Acute Distress Neck: Supple Lungs: Normal Respiratory Effort Extremities: Other (left knee with dry intact dressings) Psy/Mental Status: Alert, Normal Affect - Problem List & Annotations (1) Septic arthritis of knee, left SNOMED Code(s): 912600425 Code(s): M00.9 - PYOGENIC ARTHRITIS, UNSPECIFIED Status: Acute Current Visit: Yes Qualifiers: Septic arthritis organism: due to unspecified organism Qualified Code(s): M00.9 - Pyogenic arthritis, unspecified (2) CKD (chronic kidney disease), stage III SNOMED Code(s): 808649047 Code(s): N18.3 - CHRONIC KIDNEY DISEASE, STAGE 3 (MODERATE) Status: Chronic Current Visit: Yes (3) CAD (coronary artery disease) SNOMED Code(s): 63774893 Code(s): I25.10 - ATHSCL HEART DISEASE OF [place] CORONARY ARTERY W/O ANG PCTRS Status: Chronic Current Visit: No Qualifiers: Coronary Disease-Associated Artery/Lesion type: [place] artery [place] vs. transplanted heart: [place] heart Associated angina: without angina Qualified Code(s): I25.10 - Atherosclerotic heart disease of [place] coronary artery without angina pectoris - Problem List Review Problem List Initiated/Reviewed/Updated: Yes - My Orders Last 24 Hours: My Active Orders 05/30/17 14:00 ceFAZolin [Ancef] 2 gm Sodium Chloride 0.9% [Normal Saline] 50 ml IV Q8HR 05/30/17 16:51 Heparin Sodium [Heparin Lock Flush 100 Units/ML] 500 units FLUSH ASDIRECTED PRN 06/01/17 05:00 CBC W/O DIFF,HEMOGRAM [HEME] Timed (1) - Plan Plan:: ASSESSMENT AND PLAN - Septic arthritis of the left knee - culture from knee aspirate and blood cultures are growing MSSA. Pain is improving. White blood cell count trending down. Not having any fevers. -continue cefazolin, anticipate at least 2 weeks of outpatient therapy -Pain control -Follow-up blood cultures -Orthopedic consultation appreciated Coronary artery disease - chronic condition, stable at this time with no active symptoms. Still some ectopy but no active cardiac symptoms. -Continue home medications Stage III chronic kidney disease - creatinine at baseline. -Saline lock IV Maintenance issues - - DVT prophylaxis - mechanical - GI prophylaxis - not indicated - Regular diet Disposition - anticipate discharge to home with home antibiotics after the hospital stay, likely tomorrow if stable overnight Steven Orozco M.D.
[2017-05-31] MEDS: traMADol 50 MG Tab PO PRN (15:39)
[2017-06-01] MEDS: traMADol 50 MG Tab PO PRN ×3 (03:44→21:04)
[2017-06-01] MEDS: ceFAZolin 2 GM in Sodium Chloride 0.9% 50 ML IV SCH ×3 (05:49→21:00)
[2017-06-01] MEDS: Docusate Sodium 100 MG Cap PO SCH ×2 (09:10→20:57)
[2017-06-01] MEDS: amLODIPine 2.5 MG Tab PO SCH (09:10)
[2017-06-01] MEDS: Aspirin 325 MG Tab.EC PO SCH (09:11)
[2017-06-01] MEDS: Metoprolol Tartrate 25 MG Tab PO SCH ×2 (09:11→20:57)
[2017-06-01] MEDS: Sodium Chloride 0.9% 10 ML Syringe FLUSH SCH (09:11)
[2017-06-01 20:57] VITALS: BP 144/73
--- NOTE | 2017-06-05 11:00 | PCM.DCSUM1 ---
Discharge Summary - Hospital Course Free Text/Narrative:: Patient is status postop day 3 of irrigation and debridement and poly-exchange his left knee. He is doing very well. Patient continues to work with PT OT. His pain is under control with oral pain medication. He is urinating without any difficulties. Patient is on IV Ancef will be DC'd with outpatient therapy for that. He denies any other issues at this time. - Discharge Data Discharge Date: 06/01/17 Discharge Disposition: Home, Self-Care 01 Condition: Good - Patient Summary/Data Consults: Consultations 05/28/17 13:48 Consult to Physician [CONS] Routine Consulting Provider: Robin Flores Call Completed to Consulting Physician: Yes Reason for Consult: left knee septic arthritis Person Notified: Dr Sky Flores Date Notified: 05/28/17 05/29/17 12:04 OT Evaluation and Treatment [CONS] Routine Please Evaluate and Treat. OT Reason for Consult: Strengthening This query below is only for informational purposes and is not editable. Admission Diagnosis/Problem: Septic arthritis PT Evaluation and Treatment [CONS] Routine Please Evaluate and Treat. PT Reason for Consult: Strengthening This query below is only for informational purposes and is not editable. Admission Diagnosis/Problem: Septic arthritis 05/29/17 12:06 Consult to PICC Team [CONS] Routine Comment: Physician Instructions: - Patient Instructions Diet: Usual Diet as Tolerated Activity: Apply Ice, As Tolerated Driving: Do Not Drive Showering/Bathing: May Shower, No Tub Bathing/Swimming Wound/Incision Care: Keep Operative Site/Wound Site Clean and Dry, Change Dressing Daily Notify Provider of: Fever, Increased Pain, Swelling and Redness, Drainage, Nausea and/or Vomiting - Discharge Plan Prescriptions/Med Rec: Acetaminophen/HYDROcodone [Altha 325-5 MG] 1 tab PO Q4H PRN #60 tab PRN Reason: Pain traMADol [Ultram] 100 mg PO Q6H PRN #90 tablet PRN Reason: Pain Home Medications: Home Meds Metoprolol Tartrate [Lopressor] 25 mg PO BID 01/25/14 [History] Nitroglycerin [Nitrostat] 0.4 mg SL ASDIRECTED PRN 01/25/14 [History] amLODIPine Besylate [Norvasc] 2.5 mg PO DAILY 06/25/14 [History] Furosemide [Lasix] 20 mg PO DAILY PRN 05/23/16 [History] Rosuvastatin [Crestor] 5 mg PO MOWEFR 05/23/16 [History] Aspirin 81 mg PO DAILY 01/22/17 [History] Acetaminophen/HYDROcodone [Altha 325-5 MG] 1 tab PO Q4H PRN #60 tab 06/01/17 [Rx ] traMADol [Ultram] 100 mg PO Q6H PRN #90 tablet 06/01/17 [Rx] Patient Handouts: Bone and Joint Infections, Adult, Sepsis, Adult, Preventing Constipation After Surgery Referrals: Niko Butler MD [Primary Care Provider] - 06/22/17 1:00 pm (Dr Butler to assess need for continued antibiotics. ) Marcella Fu NP [Nurse Practitioner] - 06/08/17 11:15 am (Ortho appt with Darby Thursday the at 1115 ) - Discharge Summary/Plan Comment DC Time >30 min.: Yes Discharge Summary/Plan Comment: Patient will be DC'd home today. He'll be on Ancef for 3 weeks IV outpatient therapy in his house. We will see him back in 3 weeks' time and evaluate at that time further treatment. He will continue with PT OT outpatient. He'll follow up with orthopedic clinic in 3 weeks. He is to notify us sooner if needed. He also needs to follow-up with his PCP in 3 weeks for recheck. Patient will be sent home with Altha for oral pain medication. He will also be sent home with 81 mg and FELICITA stockings for DVT prophylactic. - General Info Functional Status: Reports: Pain Controlled, Tolerating Diet, Ambulating, Urinating - Review of Systems General: Reports: No Symptoms - Patient Data Vitals - Most Recent: Last Vital Signs Temp 37.1 C 06/01/17 20:55 Pulse 84 06/01/17 20:57 Resp 16 06/01/17 20:55 BP 144/73 H 06/01/17 20:57 Pulse Ox 96 06/01/17 20:55 Weight - Most Recent: 224 lb Med Orders - Current: Current Medications Discontinued Medications Acetaminophen (Tylenol) 650 mg PO Q4H PRN PRN Reason: Pain (Mild 1-3)/fever Last Admin: 05/30/17 00:11 Dose: 650 mg Al Hydroxide/Mg Hydroxide (Mag-Al Plus) 30 ml PO Q4H PRN PRN Reason: Constipation Albuterol (Proventil Neb Soln) 2.5 mg NEB Q4H PRN PRN Reason: Shortness Of Breath/wheezing Amlodipine Besylate (Norvasc) 2.5 mg PO DAILY [facility] Last Admin: 06/01/17 09:10 Dose: 2.5 mg Aspirin (Aspirin) 81 mg PO DAILY [facility] Last Admin: 05/29/17 09:04 Dose: Not Given Aspirin (Ecotrin) 325 mg PO DAILY [facility] Last Admin: 06/01/17 09:11 Dose: 325 mg Bisacodyl (Dulcolax) 10 mg PO DAILY PRN PRN Reason: Constipation Ropivacaine 49.25 ml/Epinephrine HCl 0.5 mg/Clonidine HCl 80 mcg/ Sodium Chloride 49.45 ml 0 ml INJECT ONETIME ONE Stop: 05/29/17 11:01 Diazepam (Valium.) 5 mg PO Q6H PRN PRN Reason: Spasms Diphenhydramine HCl (Benadryl) 25 mg IVPUSH Q4H PRN PRN Reason: Itching Docusate Sodium (Colace) 100 mg PO BID [facility] Last Admin: 06/01/17 20:57 Dose: 100 mg Fentanyl (Sublimaze) Confirm Administered Dose 100 mcg .ROUTE .STK-MED ONE Stop: 05/29/17 09:32 Gentamicin Sulfate (Gentamicin) Confirm Administered Dose 240 mg .ROUTE .STK- MED ONE Stop: 05/29/17 09:22 Last Admin: 05/29/17 11:15 Dose: 240 mg Gentamicin Sulfate (Gentamicin) Confirm Administered Dose 480 mg .ROUTE .STK- MED ONE Stop: 05/29/17 10:38 Last Admin: 05/29/17 11:15 Dose: 480 mg Heparin Sodium (Porcine) (Heparin Lock Flush 100 Units/Ml) Confirm Administered Dose 500 units .ROUTE .STK-MED ONE Stop: 05/30/17 16:45 Last Admin: 05/30/17 16:55 Dose: Not Given Heparin Sodium (Porcine) (Heparin Lock Flush 100 Units/Ml) 500 units FLUSH ASDIRECTED PRN PRN Reason: Other Last Admin: 05/30/17 16:56 Dose: 500 units Hydromorphone HCl (Dilaudid) 0.5 mg IVPUSH ONETIME ONE Stop: 05/28/17 11:17 Last Admin: 05/28/17 11:25 Dose: 0.5 mg Sodium Chloride (Normal Saline) 1,000 mls @ 250 mls/hr IV ASDIRECTED [facility] Last Admin: 05/28/17 11:09 Dose: 250 mls/hr Cefepime HCl 1 gm/ Sodium (Chloride) 50 mls @ 100 mls/hr IV ONETIME ONE Stop: 05/28/17 11:45 Last Admin: 05/28/17 11:37 Dose: 100 mls/hr Vancomycin HCl 2 gm/ Sodium (Chloride) 500 mls @ 250 mls/hr IV ONETIME ONE Stop: 05/28/17 14:29 Last Admin: 05/28/17 12:35 Dose: 250 mls/hr Cefepime HCl 1 gm/ Sodium (Chloride) 50 mls @ 100 mls/hr IV Q8H [facility] Last Admin: 05/30/17 09:37 Dose: 100 mls/hr Sodium Chloride (Normal Saline) 1,000 mls @ 125 mls/hr IV ASDIRECTED [facility] Last Admin: 05/30/17 03:01 Dose: 125 mls/hr Vancomycin HCl 1.5 gm/ Sodium (Chloride) 250 mls @ 150 mls/hr IV Q12H [facility] Last Admin: 05/30/17 00:11 Dose: 150 mls/hr Lactated Ringer's (Ringers, Lactated) Confirm Administered Dose 1,000 mls @ as directed .ROUTE .STK-MED ONE Stop: 05/29/17 10:53 Acetaminophen 1,000 mg/ Premix 100 mls @ 400 mls/hr IV NOW ONE Stop: 05/29/17 12:44 Last Admin: 05/29/17 12:39 Dose: 400 mls/hr Cefazolin Sodium 2 gm/ Sodium (Chloride) 50 mls @ 100 mls/hr IV Q8HR [facility] Last Admin: 06/01/17 21:00 Dose: 100 mls/hr Magnesium Hydroxide (Milk Of Magnesia) 30 ml PO BID PRN PRN Reason: Constipation Meperidine HCl (Demerol) 25 mg IM ONETIME ONE Stop: 05/29/17 12:17 Last Admin: 05/29/17 12:21 Dose: 25 mg Metoprolol Tartrate (Lopressor) 25 mg PO BID [facility] Last Admin: 06/01/17 20:57 Dose: 25 mg Midazolam HCl (Versed 1 Mg/Ml) Confirm Administered Dose 2 mg .ROUTE .STK-MED ONE Stop: 05/29/17 09:32 Morphine Sulfate (Morphine) 4 - 8 mg IVPUSH Q2H PRN PRN Reason: Pain (severe 7-10) Last Admin: 05/28/17 14:17 Dose: 4 mg Morphine Sulfate (Morphine) 2 mg IVPUSH Q2H PRN PRN Reason: Pain Naloxone HCl (Narcan) 0.1 mg IVPUSH ONETIME PRN PRN Reason: Oversedation Stop: 05/29/17 23:00 Ondansetron HCl (Zofran Odt) 4 mg PO Q6H PRN PRN Reason: Nausea able to take PO Ondansetron HCl (Zofran) 4 mg IV Q6H PRN PRN Reason: Nausea/Vomiting Ondansetron HCl (Zofran) 8 mg IVPUSH Q4H PRN PRN Reason: Nausea/Vomiting Oxycodone HCl (Oxycodone) 5 - 10 mg PO Q4H PRN PRN Reason: Pain (moderate 4-6) Last Admin: 05/29/17 05:11 Dose: 5 mg Oxycodone HCl (Oxycodone) 10 mg PO Q4H PRN PRN Reason: Pain Stop: 05/30/17 12:04 Last Admin: 05/30/17 00:12 Dose: 10 mg Oxycodone/Acetaminophen (Percocet 325-5 Mg) 2 tab PO Q4H PRN PRN Reason: PAIN Last Admin: 05/31/17 11:20 Dose: 2 tab Povidone Iodine (Betadine 10% Soln) Confirm Administered Dose 1 ml .ROUTE .STK- MED ONE Stop: 05/29/17 10:12 Propofol (Diprivan 20 Ml) Confirm Administered Dose 200 mg .ROUTE .STK-MED ONE Stop: 05/29/17 09:32 Senna (Senna) 8.6 mg PO BID PRN PRN Reason: Constipation Senna/Docusate Sodium (Senna Plus) 1 tab PO BID PRN PRN Reason: Constipation Sodium Chloride (Saline Flush) 10 ml FLUSH DAILY [facility] Last Admin: 06/01/17 09:11 Dose: 10 ml Tramadol HCl (Ultram) 100 mg PO Q6H PRN PRN Reason: Pain Last Admin: 06/01/17 21:04 Dose: 100 mg Vancomycin HCl (Vancomycin) 2 gm .XX ONETIME ONE Stop: 05/28/17 15:31 Last Admin: 05/28/17 15:00 Dose: 2 gm Vancomycin HCl (Vancomycin) Confirm Administered Dose 1 gm .ROUTE .STK-MED ONE Stop: 05/29/17 10:12 Last Admin: 05/29/17 11:20 Dose: 1 gm Vancomycin HCl (Vancomycin) Confirm Administered Dose 1 gm .ROUTE .STK-MED ONE Stop: 05/29/17 11:02 Last Admin: 05/29/17 11:20 Dose: 1 gm Zolpidem Tartrate (Ambien) 5 mg PO BEDTIME PRN PRN Reason: Sleep - Exam General: Reports: Alert, Oriented Extremities: Normal Inspection, Normal Range of Motion Skin: Reports: Warm, Dry, Intact Wound/Incisions: Reports: Healing Well, Dressing Dry and Intact Neurological: Reports: No New Focal Deficit Psy/Mental Status: Reports: Alert *Q Meaningful Use (DIS) - VTE *Q VTE Criteria *Q: VTE Pharmacological Contraindications *Q: Patient Scheduled Surgery - Stroke *Q Stroke Criteria *Q: - AMI *Q AMI Criteria *Q:
== END 2017-06-01 21:45 | disposition home or self-care (01) | DRG 487 ==
LOC: JP.ED 10:11 → JP.MS 12:14
PROVIDERS: ADMIT Internal Medicine; ATTEND Internal Medicine
PROC: 0S9D3ZX Drainage of Left Knee Joint, Percutaneous Approach, Diagnostic (ICD-10-PCS; principal; 2017-05-28)
PROC: 3E0U329 Introduction of Other Anti-infective into Joints, Percutaneous Approach (ICD-10-PCS; 2017-05-28)
PROC: 0SBD0ZZ Excision of Left Knee Joint, Open Approach (ICD-10-PCS; 2017-05-29)
PROC: 0JDP0ZZ Extraction of Left Lower Leg Subcutaneous Tissue and Fascia, Open Approach (ICD-10-PCS; 2017-05-29)
PROC: 0SPD09Z Removal of Liner from Left Knee Joint, Open Approach (ICD-10-PCS; 2017-05-29)
PROC: 0SUW09Z Supplement Left Knee Joint, Tibial Surface with Liner, Open Approach (ICD-10-PCS; 2017-05-29)
PROC: 02H633Z Insertion of Infusion Device into Right Atrium, Percutaneous Approach (ICD-10-PCS; 2017-05-29)
DX: M00.062 Staphylococcal arthritis, left knee (principal); B95.61 Methicillin susceptible Staphylococcus aureus infection as the cause of diseases classified elsewhere; Z96.652 Presence of left artificial knee joint; I12.9 Hypertensive chronic kidney disease with stage 1 through stage 4 chronic kidney disease, or unspecified chronic kidney disease; N18.3 Chronic kidney disease, stage 3 (moderate); Z98.890 Other specified postprocedural states; Z87.891 Personal history of nicotine dependence; I25.10 Atherosclerotic heart disease of native coronary artery without angina pectoris; E86.0 Dehydration; M25.462 Effusion, left knee; M25.562 Pain in left knee; M17.12 Unilateral primary osteoarthritis, left knee; E78.00 Pure hypercholesterolemia, unspecified; K21.9 Gastro-esophageal reflux disease without esophagitis; Z85.828 Personal history of other malignant neoplasm of skin; Z95.1 Presence of aortocoronary bypass graft; I25.2 Old myocardial infarction; H54.7 Unspecified visual loss; Z79.82 Long term (current) use of aspirin; Z88.8 Allergy status to other drugs, medicaments and biological substances; E66.9 Obesity, unspecified
CPT/HCPCS: 36415 ×2; 80053; 81001; 84550; 85025; 85027; 85651; 86140; 87040 ×2; 87077; 87186; 96361; 96365 ×2; 96375 ×2; 99284 ×2; J0692; J0696; J1170; J3010; J7040; J7050 ×3; 80048; 87070; 87205; 94762; 96367; 97110-GP; 97162-GP; 97530-GP; 99283; A9270-GY; C1751; C1776; J0131; J0171; J0690; J0735; J1580; J1642; J2175; J2250; J2270; J2704; J2795; J3370; J7120

== ENCOUNTER 2020-05-15 06:14 | Day surgery (SDC) | payer MEDICARE, BC ==
[2020-05-15] MEDS ORDERED: Sodium Chloride 0.9% 1,000 ML IV SCH (07:00)
[2020-05-15] MEDS ORDERED: fentaNYL 100 MCG/2 ML SDV ONE (07:27)
[2020-05-15] MEDS ORDERED: Propofol 200 MG/20 ML SDV ONE (07:28)
[2020-05-15] MEDS ORDERED: Midazolam 1 MG/ML 2 ML SDV ONE (07:28)
[2020-05-15 08:45] VITALS: PULSE 47
--- NOTE | 2020-05-15 09:06 | OR ---
DATE OF PROCEDURE: 05/15/2020 SURGEON: Reddy hSeets MD PROCEDURE: Colonoscopy. FINDINGS: 1. Transverse colon polyp, approximately 5 mm, completely removed using cold biopsy forceps. 2. Transverse colon polyp #2, approximately 5 mm, completely removed using cold biopsy forceps. COMPLICATION: None. 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 ANESTHESIA: MAC. PREOPERATIVE DIAGNOSIS: History of colon polyps. POSTOPERATIVE DIAGNOSIS: History of colon polyps. RISKS: Risks, benefits, alternatives, and limitations including, but not limited to infection, bleeding, and perforation were explained to the patient, who wished to proceed. PROCEDURE IN DETAIL: The patient was placed in left lateral decubitus position. Digital rectal exam was performed without abnormality. Scope was introduced and advanced atraumatically to the ileocecal valve. Photo was taken. The scope was brought back through the ascending, transverse, descending colon, and retroflexed. No evidence of old or new blood. No masses. The aforementioned polyps were identified and completely removed. No abnormalities on retroflexion. The patient tolerated the procedure well. Greater than 10 minutes was used removing the scope. Reddy Sheets MD /[id number]
[2020-05-15 09:24] VITALS: BP 156/84
== END 2020-05-15 09:25 | disposition home or self-care (01) ==
LOC: JP.SDS 06:14
PROVIDERS: ATTEND Surgery
DX: Z12.11 Encounter for screening for malignant neoplasm of colon (principal); D12.3 Benign neoplasm of transverse colon; J44.9 Chronic obstructive pulmonary disease, unspecified; I12.9 Hypertensive chronic kidney disease with stage 1 through stage 4 chronic kidney disease, or unspecified chronic kidney disease; N18.9 Chronic kidney disease, unspecified; Z86.010 Personal history of colon polyps
CPT/HCPCS: 88305; J2250; J2704; J3010; J7030

== ENCOUNTER 2020-12-28 08:45 | Emergency (ER) | payer OTHER, MEDICARE, BC ==
[2020-12-28] MEDS ORDERED: oxyCODONE 5 MG Tab PO STA (08:48)
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
[2020-12-28 09:11] VITALS: BP 146/68; PULSE 51
== END 2020-12-28 09:40 | disposition home or self-care (01) ==
LOC: JP.ED 08:45
DX: S51.811A Laceration without foreign body of right forearm, initial encounter (principal); I48.91 Unspecified atrial fibrillation; I10 Essential (primary) hypertension; I25.2 Old myocardial infarction; K21.9 Gastro-esophageal reflux disease without esophagitis; M19.90 Unspecified osteoarthritis, unspecified site; E66.9 Obesity, unspecified; Z68.31 Body mass index [BMI] 31.0-31.9, adult; Z88.8 Allergy status to other drugs, medicaments and biological substances; Z79.82 Long term (current) use of aspirin; V59.40XA Driver of pick-up truck or van injured in collision with unspecified motor vehicles in traffic accident, initial encounter
CPT/HCPCS: 99284

== ENCOUNTER 2021-03-29 06:43 | Day surgery (SDC) | payer MEDICARE, BC ==
[2021-03-29] MEDS ORDERED: Isosorbide Mononitrate 30 MG Tab.ER PO ONE (07:11)
[2021-03-29] MEDS ORDERED: Dextrose 5%-Lactated Ringers 1,000 ML IV SCH (07:30)
[2021-03-29] MEDS ORDERED: Propofol 200 MG/20 ML SDV ONE (08:15)
[2021-03-29] MEDS ORDERED: fentaNYL 100 MCG/2 ML SDV ONE (08:16)
[2021-03-29] MEDS ORDERED: Pantoprazole 40 MG Vial IVPUSH ONE (09:44)
[2021-03-29 10:49] VITALS: BP 115/49; PULSE 45
--- NOTE | 2021-04-08 12:41 | OR ---
DATE OF PROCEDURE: 03/29/2021 SURGEON: Juan Antonio Flores MD PREOPERATIVE DIAGNOSIS: Dysphagia referable to the laryngopharyngeal area as well as mid chest. POSTOPERATIVE DIAGNOSES: 1. Obvious increased esophageal spasm within esophageal body during endoscopic examination. 2. No significant hiatal hernia with significant esophageal inflammation. 3. Pronounced antral erosive gastritis. OPERATIVE PROCEDURE: Esophagogastroduodenoscopy with antral biopsies for CLOtest. ANESTHESIA: IV sedation. INDICATION FOR PROCEDURE: The patient presents with some increasing dysphagia referable to both the laryngopharyngeal area as well as the mid chest. The patient is currently not on any antisecretory medication. Plan is to proceed with upper GI endoscopy with biopsies and/or dilation as indicated. Potential risks of the procedure including bleeding and perforation were discussed, and the patient wishes to proceed. DETAILS OF PROCEDURE: The patient was taken to the operating room and placed in a left lateral decubitus position. IV sedation was administered after which the upper GI endoscope was passed orally through the length of the esophagus into the stomach with retroflexion view of the fundus, and thereafter, through the pyloric channel into the junction of the third and fourth portions of the duodenum. Findings included a normal hypopharynx, larynx and upper esophageal sphincter. The esophageal body was likewise normal. At the EEG junction, no significant hiatal hernia or significant inflammation of the distal esophagus was noted. It was noted during the passage through the esophagus that there appeared to be quite a bit of esophageal spasm. This was recognizable even to the operating room crew who noted strikingly extraesophageal contractions were present. Within the stomach, there was of periantral erosive gastritis. No true ulcers were seen. The pyloric sphincter and proximal duodenum were unremarkable. At this point, biopsies were obtained from the antrum and sent for CLOtest for H pylori. Minimal bleeding from the biopsy sites was seen, and the procedure was then concluded. The plan will be to begin the patient on Protonix 40 mg daily. He will also be on Protonix IV in the recovery room, and we will also give him Levsin 0.125 mg to take sublingually q.6 h. p.r.n. esophageal spasm and be scheduled for an x-ray, swallow and speech pathology evaluation the laryngopharyngeal dysphagia, and followup will be with Dr. Butler some time in the next 2 weeks. Juan Antonio Flores MD /[id number]
== END 2021-03-29 10:50 | disposition home or self-care (01) ==
LOC: JP.SDS 06:43
PROVIDERS: ATTEND Surgery
DX: K22.4 Dyskinesia of esophagus (principal); R13.10 Dysphagia, unspecified; K29.70 Gastritis, unspecified, without bleeding; K25.9 Gastric ulcer, unspecified as acute or chronic, without hemorrhage or perforation; J44.9 Chronic obstructive pulmonary disease, unspecified; E66.01 Morbid (severe) obesity due to excess calories; Z68.30 Body mass index [BMI] 30.0-30.9, adult
CPT/HCPCS: 43239; 87081; A9270; C9113; J2704; J3010; J7121

== ENCOUNTER 2021-08-04 05:23 | Emergency (ER) | payer MEDICARE, BC ==
[2021-08-04 05:39] VITALS: BP 196/99; PULSE 55
--- NOTE | 2021-08-04 06:09 | EDM.PDOC ---
<Niko Coy - Last Filed: 08/04/21 06:01> ED HPI GENERAL MEDICAL PROBLEM - General Chief Complaint: Respiratory Problem Stated Complaint: COUGH\SOB Time Seen by Provider: 08/04/21 05:45 Source of Information: Reports: Patient, Family History Limitations: Reports: No Limitations - History of Present Illness INITIAL COMMENTS - FREE TEXT/NARRATIVE: 76-year-old male who has had increased cough and congestion for the past several days, he was seen in the clinic 4 days ago and a chest x-ray was done and he was started on Zithromax. He finished the Zithromax yesterday and does not seem to be improved, when he lays down is especially bad and he gained 2 pounds in the last day and it scared his so she brought him in to be seen. He is not febr ile, he is fairly comfortable when sitting up. No chest pain or significant sputum production with coughing. He just sounds very congested. Onset: Gradual Duration: Day(s): (5 to 7 days of symptoms) Location: Reports: Chest Associated Symptoms: Reports: Shortness of Breath (Especially laying down or with activity), Weakness, Other (Slight increase in peripheral edema and weight gain). Denies: Fever/Chills, Malaise - Related Data Allergies Allergy/AdvReac Type Severity Reaction Status Date / Time lisinopril Allergy Cough Verified 05/01/21 10:19 niacin Allergy Other Verified 05/01/21 10:19 paroxetine HCl [From Paxil] Allergy Rash Verified 05/01/21 10:19 rofecoxib [From Vioxx] Allergy Edema Verified 05/01/21 10:19 colestipol AdvReac Muscle Verified 05/01/21 10:19 Aches doxazosin mesylate AdvReac Hypertensio Verified 05/01/21 10:19 [From Cardura] n pravastatin AdvReac Leg Cramps Verified 05/01/21 10:19 rosuvastatin [From Crestor] AdvReac Leg Cramps Verified 05/01/21 10:19 simvastatin AdvReac Leg Cramps Verified 05/01/21 10:19 [id number]-[id number]-ShV Reductase AdvReac Muscle Verified 05/01/21 10:19 Inhibitor Aches [Sozpgix-Dgz-Xjb Reductase Inhibitor] tamsulosin HCl [From Flomax] AdvReac Hypertensio Verified 05/01/21 10:19 n Home Meds: Home Meds Nitroglycerin [Nitrostat] 0.4 mg SL ASDIRECTED PRN 01/25/14 [History] Furosemide [Lasix] 20 mg PO DAILY 05/23/16 [History] Aspirin 81 mg PO DAILY 01/22/17 [History] Albuterol [Proventil HFA] 2 puff INH Q4H PRN 12/06/18 [History] Ezetimibe [Zetia] 10 mg PO DAILY 12/06/18 [History] Metoprolol Succinate [Toprol XL 50mg] 25 mg PO DAILY 12/06/18 [History] Isosorbide Mononitrate [Isosorbide Mononitrate ER] 30 mg PO DAILY 05/11/20 [History] Latanoprost/Pf [Latanoprost 0.005% Eye Drop] 1 drop OP BEDTIME 05/11/20 [History] Cholestyramine/Sucrose [Cholestyramine] 4 gm PO BID 12/24/20 [History] Acetaminophen [Tylenol Extra Strength] 500 mg PO Q6H PRN 03/27/21 [History] Pantoprazole Sodium [Protonix] 1 tab PO DAILY 08/04/21 [History] Past Medical History HEENT History: Reports: Impaired Vision Cardiovascular History: Reports: Afib, Bypass, High Cholesterol, Hypertension, [place] Respiratory History: Reports: None Gastrointestinal History: Reports: Cholelithiasis, Chronic Diarrhea, Colon Peter yp, GERD, Irritable Bowel Syndrome Genitourinary History: Reports: None Musculoskeletal History: Reports: Arthritis, Fracture, Other (See Below) Other Musculoskeletal History: R hip pain. s/p L knee scope Neurological History: Reports: None Psychiatric History: Reports: None Endocrine/Metabolic History: Reports: Obesity/BMI 30+ Hematologic History: Reports: Anemia, Blood Transfusion(s) Immunologic History: Reports: None Oncologic (Cancer) History: Reports: Basal Cell Carcinoma, Squamous Cell Carcinoma Other Oncologic History: BASAL CELL BEHIND RIGHT EAR Dermatologic History: Reports: None - Infectious Disease History Infectious Disease History: Reports: Chicken Pox, Measles, Mumps - Past Surgical History Head Surgeries/Procedures: Reports: None HEENT Surgical History: Reports: Adenoidectomy, Tonsillectomy Cardiovascular Surgical History: Reports: Coronary Artery Bypass Other Cardiovascular Surgeries/Procedures: 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 with antibx x 3 months Oncologic Surgical History: Reports: None Dermatological Surgical History: Reports: Skin Biopsy Social & Family History - Family History Family Medical History: No Pertinent Family History - Tobacco Use Tobacco Use Status *Q: Never Tobacco User Second Hand Smoke Exposure: No - Caffeine Use Caffeine Use: Reports: None - Recreational Drug Use Recreational Drug Use: No ED ROS GENERAL - Review of Systems Review Of Systems: See Below Constitutional: Reports: Malaise. Denies: Fever, Chills HEENT: Denies: Throat Pain Respiratory: Reports: Shortness of Breath, Cough Cardiovascular: Denies: Chest Pain, Palpitations GI/Abdominal: Denies: Abdominal Pain, Nausea, Vomiting : Reports: No Symptoms Musculoskeletal: Reports: No Symptoms Skin: Reports: No Symptoms Neurological: Reports: No Symptoms ED EXAM, GENERAL - Physical Exam Exam: See Below Exam Limited By: No Limitations General Appearance: Alert, No Apparent Distress Eye Exam: Bilateral Eye: Normal Inspection Head: Atraumatic Respiratory/Chest: No Respiratory Distress, Other (Diffuse decreased breath sounds with some scattered expiratory wheezes, good air movement to the bases without rales) Cardiovascular: Regular Rate, Rhythm Extremities: Other (Patient does have more than a trace of symmetric pitting edema in his lower extremities) Course - Re-Assessments/Exams Free Text/Narrative Re-Assessment/Exam: 08/04/21 06:11 he is just finishing a course of Zithromax and not improving so this likely isn't a bacterial or atypical infection. He'll be given a DuoNeb, 4 Plex Covid study will be obtained, and a 2 view chest x-ray ordered. Departure - Departure Disposition: Home, Self-Care 01 Clinical Impression: COPD with exacerbation - Discharge Information Instructions: Chronic Obstructive Pulmonary Disease, [id number] Referrals: Niko Butler MD [Primary Care Provider] - Forms: ED Department Discharge Additional Instructions: Take prednisone as directed. Use your albuterol inhaler every 4 hrs as needed. Recheck with your provider later this week. Sepsis Event Note (ED) - Evaluation Sepsis Screening Result: No Definite Risk <Gerard Bliss - Last Filed: 08/04/21 08:07> Course - Vital Signs Last Recorded V/S: Last Vital Signs Temp 36.6 C 08/04/21 05:33 Pulse 55 L 08/04/21 05:33 Resp 20 08/04/21 05:33 BP 196/99 H 08/04/21 05:33 Pulse Ox 96 08/04/21 05:33 - Orders/Labs/Meds Orders: Active Orders 24 hr Category Date Time Status RT Aerosol Therapy [RC] ASDIRECTED Care 08/04/21 06:41 Active Chest 2V [CR] Routine Exams 08/04/21 06:44 Ordered Isolation [COMM] Stat Oth 08/04/21 05:58 Ordered Labs: Laboratory Tests 08/04/21 Range/Units 06:47 Influenza Type A RNA Negative (NEGATIVE) RSV RNA (INAAT) Negative (NEGATIVE) Influenza Type B RNA Negative (NEGATIVE) SARS-CoV-2 RNA ([facility]) Negative (NEGATIVE) Meds: Medications Discontinued Medications Generic Name Dose Route Start Last Admin Trade Name Freq PRN Reason Stop Dose Admin Albuterol/Ipratropium 3 ml 08/04/21 06:40 08/04/21 07:15 Albuterol/Ipratropium 3.0-0.5 Mg/3 Ml Neb Soln NEB 08/04/21 06:41 3 ml ONETIME ONE Administration - Radiology Interpretation Free Text/Narrative:: CXR-nothing acute Departure - Departure Time of Disposition: 08:06 Condition: Fair - Discharge Information *PRESCRIPTION DRUG MONITORING PROGRAM REVIEWED*: Not Applicable *COPY OF PRESCRIPTION DRUG MONITORING REPORT IN PATIENT CALISTA: Not Applicable Sepsis Event Note (ED) - Focused Exam Vital Signs: Vital Signs Temp Pulse Resp BP Pulse Ox 08/04/21 05:33 36.6 C 55 L 20 196/99 H 96
[2021-08-04] MEDS ORDERED: Albuterol/Ipratropium 3.0-0.5 MG/3 ML Neb Soln NEB ONE (06:40)
[2021-08-04 07:28] LABS: CORONAVIRUS COVID-19 NAA NEGATIVE (NEGATIVE)
--- NOTE | 2021-08-05 09:37 | CR ---
CHEST: 2 view CLINICAL HISTORY:Dyspnea COMPARISON:CT 2019 FINDINGS: Patient has had previous sternotomy. There are atherosclerotic changes in the aorta. The heart size, pulmonary vascularity and hilar structures are normal. No infiltrate effusion or pneumothorax is seen. IMPRESSION: No acute cardiopulmonary process.
== END 2021-08-04 08:27 | disposition home or self-care (01) ==
LOC: JP.ED 05:23
DX: J44.1 Chronic obstructive pulmonary disease with (acute) exacerbation (principal); I10 Essential (primary) hypertension; I25.2 Old myocardial infarction; Z88.8 Allergy status to other drugs, medicaments and biological substances; Z79.82 Long term (current) use of aspirin; Z79.899 Other long term (current) drug therapy; Z90.49 Acquired absence of other specified parts of digestive tract; Z20.822 Contact with and (suspected) exposure to COVID-19
CPT/HCPCS: 0241U; 71046; 94640; 99285; J7620-GY